=== PATIENT | female | born 1940 | race Caucasian/White ===

== ENCOUNTER 2019-12-05 12:00 | Outpatient (CLI) | payer OTHER, SELFPAY ==
[2019-12-05 12:38] LABS: Basophils Absolute Auto 0.1 K/mm3 (0.0-0.1); Basophils Percent Auto 1.1 % (0.2-1.2); Eosinophils Absolute Auto 0.2 K/mm3 (0-0.3); Eosinophils Percent Auto 3.1 % (0-4.4); Hematocrit 39.4 % (37.0-47.0); Immature Granulocyte Absolute 0.02 K/mm3 (0.00-0.031); Immature Granulocyte Percent A 0.3 % (0-0.5); Lymphocytes Absolute Auto 1.96 K/mm3 (0.9-3.2); Lymphocytes Percent Auto 30.4 % (18.3-44.2); Mean Corpuscular Volume 87.8 fl (80-100); Mean Platelet Volume 9.6 fl (7.4-10.4); Monocytes Absolute Auto 0.7 K/mm3 (0.1-0.6); Monocytes Percent Auto 11.2 % (2.6-8.5); Neutrophils Absolute Auto 3.5 K/mm3 (1.3-6.7); Neutrophils Percent Auto 53.9 % (45.5-73.1); Platelet Count Result 346 k/mm3 (150-375); Red Blood Count 4.49 M/mm3 (4.2-5.4); Red Cell Distribution Width 12.6 % (11.5-14.5); White Blood Count 6.5 K/mm3 (4.5-10.0)
[2019-12-05 12:48] LABS: Alanine Aminotransferase 18 U/L (4-35); Albumin Level 4.1 g/dL (3.5-5.1); Alkaline Phosphatase 129 U/L (38-126); Anion Gap 11.2 mmol/L (7-16); Aspartate Amino Transferase 25 U/L (14-36); Bilirubin,Total 0.4 mg/dL (0.2-1.3); Blood Urea Nitrogen 17 mg/dL (7-17); Calcium 8.6 mg/dL (8.4-10.2); Carbon Dioxide 28 mmol/L (22-30); Chloride 102 mmol/L (98-107); Estimated Glomerular Filt Rate > 60; Glucose 100 mg/dL (65-105); Potassium 4.2 mmol/L (3.4-5.0); Sodium 137 mmol/L (137-145)
[2019-12-05 13:19] LABS: Thyroid Stimulating Hormone 0.689 uIU/mL (0.465-4.680)
[2019-12-05 14:06] LABS: Vitamin D 25 Hydroxy 41.6 ng/mL
== END 2019-12-05 12:01 | disposition home or self-care (01) ==
PROVIDERS: PCP Internal Medicine; Visit Provider Internal Medicine
DX: I10 Essential (primary) hypertension (principal); Z79.899 Other long term (current) drug therapy
CPT/HCPCS: 36415; 80053; 82306; 84443; 85025

== ENCOUNTER 2020-01-12 15:34 | Outpatient (CLI) | payer OTHER, SELFPAY ==
--- NOTE | ~2020-01-12 | US_ITS ---
EXAMINATION: US venous doppler [facility] DATE: 01/12/2020 16:17 INDICATION: Lower limb edema TECHNIQUE: Reynaga scale images without and with compression and Doppler images of the bilateral lower e xtremity veins were obtained. COMPARISON: 05/28/2015 FINDINGS: The right common femoral vein, profunda femoral vein, femoral vein, popliteal vein, peroneal trunk, p osterior tibial veins, and greater saphenous vein are patent. The left common femoral vein, profunda femoral vein, femoral vein, popliteal vein, peroneal trunk, po sterior tibial veins, and greater saphenous vein are patent. IMPRESSION: 1. Patent bilateral lower extremity veins. No evidence of deep venous thrombosis. Reviewed, dictated and finalized at location B. IMPRESSION: 1. Patent bilateral lower extremity veins. No evidence of deep venous thrombosi s.
== END 2020-01-12 15:35 | disposition home or self-care (01) ==
PROVIDERS: PCP Internal Medicine; Visit Provider Internal Medicine Nephrology
DX: R60.1 Generalized edema (principal); I10 Essential (primary) hypertension
CPT/HCPCS: 93970

== ENCOUNTER 2020-01-26 13:28 | Outpatient (CLI) | payer OTHER, SELFPAY ==
[2020-01-26 15:20] LABS: Albumin Level 4.2 g/dL (3.5-5.1); Anion Gap 8 mmol/L (8-16); Blood Urea Nitrogen 14 mg/dL (7-17); Calcium 8.8 mg/dL (8.4-10.2); Carbon Dioxide 27 mmol/L (22-30); Chloride 103 mmol/L (98-107); Estimated Glomerular Filt Rate > 60; Glucose 102 mg/dL (65-105); Phosphorus 3.2 mg/dL (2.5-4.5); Potassium 3.8 mmol/L (3.4-5.0); Sodium 138 mmol/L (137-145)
[2020-02-01 13:40] LABS: Renin 1.06 ng/mL/h (0.25-5.82)
== END 2020-01-26 13:29 | disposition home or self-care (01) ==
LOC: ANHLAB 13:39
PROVIDERS: PCP Internal Medicine; Visit Provider Internal Medicine Nephrology
DX: I10 Essential (primary) hypertension (principal)
CPT/HCPCS: 36415; 80069; 82088; 83970; 84244

== ENCOUNTER 2020-01-29 14:47 | Outpatient (CLI) | payer OTHER, SELFPAY ==
[2020-01-29 20:37] LABS: Sodium Urine Random 88 meq/L
[2020-01-29 21:22] LABS: Sodium 24 Hour Urine 114 mmol/day (40-220); Total Volume 24 Hour Urine 1300 ml
[2020-02-03 11:29] LABS: Metanephrine, Free <25 pg/mL (<=57); Normetanephrine, Free 191 pg/mL (<=148); Total, Free (MN + NMN) 191 pg/mL (<=205)
[2020-02-04 12:50] LABS: Metanephrine, Total Urine 635 mcg/24 h (224-832); Metanephrine, Urine 51 mcg/24 h (90-315); Normetanephrine, Urine 584 mcg/24 h (122-676)
== END 2020-01-29 14:48 | disposition home or self-care (01) ==
LOC: ANHLAB 14:53
PROVIDERS: PCP Internal Medicine; Visit Provider Internal Medicine Nephrology
DX: I10 Essential (primary) hypertension (principal)
CPT/HCPCS: 36415; 81050; 82088; 82530; 82542; 83835; 84300

== ENCOUNTER 2020-03-13 12:15 | Outpatient (CLI) | payer OTHER, SELFPAY ==
[2020-03-13 13:01] LABS: Albumin Level 4.1 g/dL (3.5-5.1); Anion Gap 7 mmol/L (8-16); Blood Urea Nitrogen 23 mg/dL (7-17); Calcium 9.2 mg/dL (8.4-10.2); Carbon Dioxide 31 mmol/L (22-30); Chloride 100 mmol/L (98-107); Estimated Glomerular Filt Rate 60; Glucose 105 mg/dL (65-105); Phosphorus 4.3 mg/dL (2.5-4.5); Potassium 3.9 mmol/L (3.4-5.0); Sodium 138 mmol/L (137-145)
[2020-03-13 13:03] LABS: Creatinine Urine 158.9 mg/dL; Total Protein Urine Random 7 mg/dL
== END 2020-03-13 12:16 | disposition home or self-care (01) ==
PROVIDERS: PCP Internal Medicine; Visit Provider Internal Medicine Nephrology
DX: I10 Essential (primary) hypertension (principal)
CPT/HCPCS: 36415; 80069; 82570; 84156

== ENCOUNTER 2020-03-19 10:38 | Outpatient (CLI) | payer OTHER, SELFPAY ==
--- NOTE | ~2020-03-19 | US_ITS ---
EXAMINATION: US retroperitoneal duplex ltd DATE: 03/19/2020 11:26 INDICATION: Hypertension. TECHNIQUE: Multiple grayscale, color Doppler, and pulsed Doppler images of the kidneys and renal annamarie desean were obtained. COMPARISON: CT abdomen 09/17/2004, ultrasound 11/29/2018 FINDINGS: The kidneys are normal in size. The aorta peak systolic velocity is 120 cm/s. The right renal artery peak systolic velocity is 79 cm/s in the proximal segment, 77 cm/s in the mid segment, and 71 cm/s in the distal segment. The left renal artery peak systolic velocity is 61 cm/s in the proximal segment, 103 cm/s in the mid segment, and 43 cm/s in the distal segment. IMPRESSION: 1. No Doppler evidence of renal artery stenosis. The prior CT demonstrates normal renal arteries. Reviewed, dictated and finalized at location A. UE TESTER IMPRESSION: 1. No Doppler evidence of renal artery stenosis. The prior CT demonstrates nor mal renal arteries.
== END 2020-03-19 10:39 | disposition home or self-care (01) ==
PROVIDERS: PCP Internal Medicine; Visit Provider Internal Medicine Nephrology
DX: I10 Essential (primary) hypertension (principal)
CPT/HCPCS: 93976

== ENCOUNTER 2020-06-25 10:37 | Outpatient (CLI) | payer OTHER, SELFPAY ==
[2020-06-25 11:17] LABS: Albumin Level 3.9 g/dL (3.5-5.1); Anion Gap 8 mmol/L (8-16); Blood Urea Nitrogen 15 mg/dL (7-17); Calcium 8.7 mg/dL (8.4-10.2); Carbon Dioxide 28 mmol/L (22-30); Chloride 104 mmol/L (98-107); Estimated Glomerular Filt Rate > 60; Glucose 147 mg/dL (65-105); Phosphorus 3.7 mg/dL (2.5-4.5); Sodium 140 mmol/L (137-145)
[2020-06-25 11:47] LABS: Thyroid Stimulating Hormone 0.946 uIU/mL (0.465-4.680)
[2020-06-28 08:37] LABS: Metanephrine, Free <25 pg/mL (<=57); Normetanephrine, Free 136 pg/mL (<=148); Total, Free (MN + NMN) 136 pg/mL (<=205)
== END 2020-06-25 10:38 | disposition home or self-care (01) ==
LOC: ANHLAB 10:39
PROVIDERS: PCP Internal Medicine; Visit Provider Internal Medicine Nephrology
DX: E03.9 Hypothyroidism, unspecified (principal); I10 Essential (primary) hypertension
CPT/HCPCS: 36415; 80069; 83835; 84443

== ENCOUNTER 2020-11-13 11:38 | Outpatient (CLI) | payer OTHER, SELFPAY ==
[2020-11-13 12:41] LABS: Anion Gap 8 mmol/L (8-16); Blood Urea Nitrogen 11 mg/dL (7-17); Calcium 8.9 mg/dL (8.4-10.2); Carbon Dioxide 27 mmol/L (22-30); Chloride 104 mmol/L (98-107); Estimated Glomerular Filt Rate > 60; Glucose 93 mg/dL (65-105); Phosphorus 3.3 mg/dL (2.5-4.5); Potassium 4.1 mmol/L (3.4-5.0); Sodium 139 mmol/L (137-145)
[2020-11-13 12:56] LABS: Creatinine Urine 106.1 mg/dL; Total Protein Urine Random 7 mg/dL; Ur Ttl Prot Creatinine Ratio 0.07 mg/mg (0-0.20)
== END 2020-11-13 11:39 | disposition home or self-care (01) ==
LOC: ANHLAB 11:40
PROVIDERS: PCP Internal Medicine; Visit Provider Internal Medicine Nephrology
DX: I10 Essential (primary) hypertension (principal)
CPT/HCPCS: 36415; 80069; 82570; 84156

== ENCOUNTER 2020-12-17 15:44 | Emergency (ER) | payer OTHER, SELFPAY ==
--- NOTE | ~2020-12-17 | XR_ITS ---
XR shoulder RT min 2V DATE: 12/17/2020 16:38 INDICATION: Fall yesterday. Generalized pain. TECHNIQUE: 4 views COMPARISON: None FINDINGS: There is degenerative change at the acromioclavicular joint. There is degenerative cystic change at the humeral head subjacent to the rotator cuff tendon insertio n site. There is mild superior subluxation of the humeral head consistent with rotator cuff atrophy or tear. No fracture or dislocation, periosteal reaction or bone destruction or abnormal soft tissue calcifica tion. IMPRESSION: Degenerative changes Reviewed, dictated and finalized at location A. IMPRESSION: Degenerative changes
--- NOTE | ~2020-12-17 | CT_ITS ---
EXAMINATION: CT brain wo con DATE: 12/17/2020 16:16 INDICATION: Fall. Double vision. TECHNIQUE: Computed tomography (CT) of the head was performed without intravenous contrast. The mA wa s adjusted according to patient size. Iterative reconstruction technique was employed. Exam dose: 52 9.67 mGy-cm total exam DLP. COMPARISON: None FINDINGS: Prominent arterial calcifications of the vertebral and internal carotid arteries. There is nonspecific diminished attenuation of the cerebral white matter, likely due to chronic small vessel ischemic changes. No intracranial mass lesion or hemorrhage or recent cerebrovascular accident. No midline shift or ma ss effect. No subdural or epidural hematoma. No skull fracture or bone destruction. Included paranasal sinuses and mastoid air cells are normally developed and aerated. IMPRESSION: Cerebral atherosclerosis and chronic ischemic changes of the cerebral white matter No acute intracranial abnormality Reviewed, dictated and finalized at Location A. Reviewed, dictated and finalized at location A. IMPRESSION: Cerebral atherosclerosis and chronic ischemic changes of the cereb ral white matter No acute intracranial abnormality
--- NOTE | ~2020-12-17 | XR_ITS ---
XR elbow RT min 3V DATE: 12/17/2020 16:21 INDICATION: Fall. Right elbow injury, pain TECHNIQUE: 4 views COMPARISON: None FINDINGS: There is a mildly impacted nondisplaced radial neck fracture. There is mild elbow joint fl uid/hemarthrosis. No other fracture or dislocation. IMPRESSION: Radial neck fracture Reviewed, dictated and finalized at location A. IMPRESSION: Radial neck fracture
--- NOTE | ~2020-12-17 | XR_ITS ---
EXAMINATION: XR wrist RT min 3V DATE: 12/17/2020 16:39 INDICATION: Generalized right wrist pain post fall TECHNIQUE: Posteroanterior, ulnar deviation, oblique, and lateral views of the right wrist were obtai bc. COMPARISON: none FINDINGS: Bone alignment is normal. No fracture. Moderate osteoarthritis with mild subarticular cystic changes at the first carpometacarpal joint as well as at the third metacarpophalangeal joint. Mild osteoarthr itis at the distal radioulnar, radiocarpal and triscaphe and several of the remaining metacarpophalan geal and interphalangeal joints. Additional subarticular cystic changes are seen along the proximal a rticular surface of the lunate. Diffuse osteopenia. IMPRESSION: 1. Polyarticular osteoarthritis, moderate severity at the first carpometacarpal and third metacarpoph alangeal joints. No acute osseous abnormality. Reviewed, dictated and finalized at location A. IMPRESSION: 1. Polyarticular osteoarthritis, moderate severity at the first carpometacarpal and third metacarpophalangeal joints. No acute osseous abnormality.
--- NOTE | ~2020-12-17 | CT_ITS ---
EXAMINATION: CT facial & cervical spine wo DATE: 12/17/2020 16:16 INDICATION: Right facial pain. Diplopia. Head and neck injury. TECHNIQUE: Computed tomography (CT) of the maxillofacial region and cervical spine was performed with out intravenous contrast. Automated exposure control and iterative reconstruction technique were empl oyed. The dose-length product was 411.84 mGy-cm. COMPARISON: None FINDINGS: MAXILLOFACIAL CT: There is a blowout fracture of floor of right orbit. The inferior rectus muscle passes inferior to th e expected position of the floor of the right orbit. There are likely changes of ocular lens replacem ent surgeries. There is a small volume of hematoma in the right maxillary sinus. There is mild mucosa l thickening in some of the other paranasal sinuses. CERVICAL SPINE CT: C1 ring is ununited posteriorly, a normal variant. There is fusion of the C1 lateral masses with the skull base. There is 12 degrees dextroscoliosis of cervical spine. There is mild kyphosis of cervical spine. Vertebral body heights are normal. There is mildly decreased disc height at C3-C4 and moderat rachel decreased disc height at C5-C6 and C6-C7. The following disc levels are specifically discussed: C2-C3: There is no uncovertebral joint osteoarthritis. There is severe bilateral facet joint osteoart hritis. There is mild bilateral neural foraminal stenosis. There is no central canal stenosis. C3-C4: There is mild right uncovertebral joint osteoarthritis. There is no facet joint osteoarthritis . There is no neural foraminal stenosis. There is no central canal stenosis. C4-C5: There is no uncovertebral joint osteoarthritis. There is no facet joint osteoarthritis. There is no neural foraminal stenosis. There is no central canal stenosis. C5-C6: There is mild right and severe left uncovertebral joint osteoarthritis. There is severe right and mild left facet joint osteoarthritis. There is mild left neural foraminal stenosis. There is mild central canal stenosis. C6-C7: There is severe left uncovertebral joint osteoarthritis. There is mild right and moderate left facet joint osteoarthritis. There is mild left neural foraminal stenosis. There is mild central mike l stenosis. C7-T1: There is no uncovertebral joint osteoarthritis. There is severe bilateral facet joint osteoart hritis. There is mild bilateral neural foraminal stenosis. There is no central canal stenosis. IMPRESSION: 1. Blowout fracture of floor of right orbit. 2. Moderate cervical spondylosis. 3. Cervical dextroscoliosis. Reviewed, dictated and finalized at location B.
[2020-12-17 16:41] VITALS: BP 131/67; PULSE 72; RESP 14; TEMP 36.4; O2SAT 98
--- NOTE | 2020-12-17 17:43 | ED.GENADULT ---
HPI - General Adult General Chief complaint: Fall Stated complaint: Fall 12/16 double vision Time Seen by Provider: 12/17/20 17:01 Source: patient and family (daughter) Mode of arrival: ambulatory Limitations: no limitations History of Present Illness HPI narrative: Patient is here for evaluation after fall at home yesterday. She states that she just stumbled in her own home she fell forward and hit a cabinet. She was able to get herself off the floor. Her family became concerned today because she has a significant black eye on the right and numbness and tingling in her face on the right. She also has pain in her right arm that keeps her from being able to comb her hair or brush her teeth. She has no complaints in her legs or pelvis. And she has been ambulating freely at home. Onset (ago): day(s) Severity scale (1-10): 1 Exacerbating factors: movement (right arm) Associated symptoms: denies other symptoms Treatments prior to arrival: none Related Data Home Medications Medication Instructions Recorded Confirmed hydroxyzine HCl 12/17/20 12/17/20 Allergies Allergy/AdvReac Type Severity Reaction Status Date / Time chocolate flavor Allergy Unknown Itching Verified 12/17/20 16:57 morphine Allergy Unknown Itching Verified 12/17/20 16:57 tomato Allergy Unknown Itching Verified 12/17/20 16:57 Review of Systems Review of Systems: All systems reviewed & are unremarkable except as noted in HPI and below PMFSH Past Medical History Medical History (Updated 12/17/20 @ 20:23 by Mer Sommer PA-C) Dyslipidemia Hypertension Hypothyroid Surgical History Surgical History History of appendectomy History of section History of hysterectomy Family History Family History Mother Hypertension Heart disease Father Family history of heart disease in male family member before age 55 Social History Social History Smoking status: Never smoker Alcohol intake: never Gender identity (if verbalized by the patient): Female Exam Const: General: no acute distress and alert Orientation/consciousness: patient oriented x3 HENMT: Head: No palpable skull fracture present Face and sinus: ecchymosis on the right periorbital, edema on the right periorbital and other (numbness andtingling) Eyes: Alignment and Position: alignment normal Periorbital: periorbital findings abnormal right periorbital swelling, periorbital tenderness and periorbital ecchymosis Eyelids: other Conjunctivae: conjunctivae normal Sclera: sclerae normal Pupils: Equal, round and reactive pupils present and Pupils normal by confrontation EOM: EOMs intact bilaterally Other: IOP 14 OU Resp: Effort & Inspection: normal respiratory effort Auscultation: clear to auscultation bilaterally Cardio: Rate: regular rate Rhythm: regular rhythm Skin: General skin exam: normal color Other: with exception of right periorbital bruising Neuro: General: patient oriented x3, moves all extremities and no focal motor deficits Extrem: General: normal to inspection Right upper extremity: normal to inspection, normal capillary refill, elbow/forearm (pain with rotation in right elbow and forearm) and wrist (tender over right ulnar head) Left upper extremity: normal to inspection Right lower extremity: normal to inspection Left lower extremity: normal to inspection Psych: Mental Status: mental status grossly normal Affect: normal affect Attitude: cooperative Course Course Emergency Course: Spoke with Dr. MALDONADO at the [facility] [place], they will see the patient in clinic on . They would like 5 days of antibiotics and patient has been instructed regarding any concerning new onset of symptoms and when to call or return to the emergency room. Patient will also make an appointment
[2020-12-17 19:00] VITALS: BP 148/74; PULSE 88; RESP 20; O2SAT 96
--- NOTE | 2020-12-17 19:56 | PC.NURSE ---
Assumed care of pt. at this time. Report from NOHELIA Vela
[2020-12-17 20:30] VITALS: BP 146/89; PULSE 90; RESP 14; O2SAT 94
== END 2020-12-17 20:30 | disposition home or self-care (01) ==
PROVIDERS: Emergency Provider Emergency Medicine; PCP Internal Medicine
DX: S02.31XA Fracture of orbital floor, right side, initial encounter for closed fracture (principal); S52.111A Torus fracture of upper end of right radius, initial encounter for closed fracture; W18.30XA Fall on same level, unspecified, initial encounter; E78.5 Hyperlipidemia, unspecified; I10 Essential (primary) hypertension; E03.9 Hypothyroidism, unspecified
CPT/HCPCS: 70450; 70486; 72125; 73030; 73080; 73110; 99284; A4565

== ENCOUNTER 2021-01-14 09:34 | Outpatient (CLI) | payer OTHER, SELFPAY ==
[2021-01-14 10:55] LABS: Alanine Aminotransferase 17 U/L (4-35); Albumin Level 3.8 g/dL (3.5-5.1); Alkaline Phosphatase 146 U/L (38-126); Anion Gap 7 mmol/L (8-16); Aspartate Amino Transferase 19 U/L (14-36); Bilirubin,Total 0.5 mg/dL (0.2-1.3); Blood Urea Nitrogen 24 mg/dL (7-17); Calcium 9.1 mg/dL (8.4-10.2); Carbon Dioxide 25 mmol/L (22-30); Chloride 106 mmol/L (98-107); Cholesterol 174 mg/dL (0-200); Estimated Glomerular Filt Rate 60; Glucose 104 mg/dL (65-110); HDL Direct 71 mg/dL; Potassium 4.1 mmol/L (3.4-5.0); Sodium 138 mmol/L (137-145); Triglycerides 98 mg/dL (<150)
[2021-01-14 11:06] LABS: LDL Cholesterol Direct 73 mg/dL
[2021-01-14 11:10] LABS: Creatinine Urine 116.3 mg/dL
[2021-01-14 11:14] LABS: MALB Creatinine Ratio 11.8 mg/g (0-30); Microalbumin Urine Random 13.7 mg/L (0-16.7)
== END 2021-01-14 09:35 | disposition home or self-care (01) ==
PROVIDERS: PCP Internal Medicine; Visit Provider Internal Medicine
DX: E03.9 Hypothyroidism, unspecified (principal); E78.5 Hyperlipidemia, unspecified; E78.2 Mixed hyperlipidemia; I10 Essential (primary) hypertension
CPT/HCPCS: 36415; 80053; 80061; 82043

== ENCOUNTER 2021-02-07 15:00 | Outpatient (RCR) | payer OTHER, SELFPAY ==
--- NOTE | 2021-02-04 10:02 | OTOPEVAL ---
OCCUPATIONAL THERAPY INITIAL EVALUATION REPORT 02/04/21 Thank you for referring Jil Zimmerman to [facility].? The patient is scheduled to be seen for therapy? 2x/week for 4 weeks. Please review, sign, date and return this plan of care SUJATHA. I agree with and certify that the following plan of care is medically necessary. Referring Physician Date Referring Provider: Librado Liu MD *OT Outpatient Evaluation Start: 02/04/21 08:47 Evaluation Information Problem Diagnosis Radial head fx (R) elbow, DRUJ sprain Onset 12/16/20 Cause Fall Subjective Information Patient fell onto her right Query Text:As Reported By Patient/ arm where she sustained a Family radial head fracture and DRUJ sprain. She presents today with the right arm in a sling, which she wears at all time except when sleeping. She was treated conservatively. Orders today are for AAROM of elbow extension only and to continue no use of the right hand . Patient admits she has a hard time with not using the right hand. 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 He also currently helps her with bathing and dressing. Pain Assessment Timing of Pain Assessment Timing of Pain Assessment Assessment Pain Scale Pain Scale Used Numeric (1 - 10) Self Report Pain Assessment Right Arm(s) Reported Pain Level 0 Pain Frequency Intermittent Lowest Pain Intensity 0 Greatest Pain Intensity 8 Other Pain Aggravating Factors Trying to straighten the elbow causes sharp/shooting pain to the hand. Pain Score Pain Score 0: Self Report Upper Extremity Range of Motion Scapular/ Shoulder Range of Motion
--- NOTE | 2021-02-07 15:26 | PCOTNOTE ---
OCCUPATIONAL THERAPY DISCHARGE NOTIFICATION 02/07/21 Patient:Jil Zimmerman Date of :1940 Jil was initially evaluated at this clinic on 02/04/21 for instruction HEP for AAROM for elbow extension. She followed up with Dr. Contreras's staff physical therapy assistant today and is cleared to use her arm again. office states that she no longer needs therapy at this time, therefore she will be discharged with HEP at this time. Patient has been instructed in active ROM HEP for the elbow, forearm, and wrist. She has excellent return demonstration of the exercises. Thank you for referring this patient to [facility]. Please review, sign, date and return this discharge summary SUJATHA. I have been updated about the patient's current status and I agree with discharge from the above service at this time. Referring Physician Date Referring Provider: Librado Liu MD
== END 2021-02-10 10:31 | disposition home or self-care (01) ==
LOC: ANHOT 15:00
PROVIDERS: PCP Internal Medicine; Visit Provider Internal Medicine
DX: S53.10 Unspecified subluxation and dislocation of ulnohumeral joint (principal)
CPT/HCPCS: 97110; 97165

== ENCOUNTER 2021-03-25 09:47 | Outpatient (CLI) | payer OTHER, SELFPAY ==
--- NOTE | ~2021-03-25 | DEXA_ITS ---
Bone Density Report Name: Jil Zimmerman Age: 81 Sex: Female Ethnicity: White Date of : 1940 Indication: osteopenia; parental hip fracture; prior fracture; hysterectomy; postmenopausal Referring Provider: JOSSELINE DIAZ Study: Bone densitometry was performed. Exam Date: March 25, 2021 Accession number: [id number] Bone Density: Region BMD T-score Z-score Classification AP Spine (L3, L4) 0.750 -3.2 -0.4 Osteoporosis Femoral Neck (Left) 0.660 -1.7 0.6 Osteopenia Total Hip (Left) 0.872 -0.6 1.5 Normal Total Hip Bilateral Avg 0.850 -0.8 1.3 Normal Femoral Neck (Right) 0.736 -1.0 1.3 Normal Total Hip (Right) 0.827 -0.9 1.1 Normal World Health Organization criteria for BMD impression classify patients as: Normal (T-score at or above -1.0), Osteopenia (T-score between -1.0 and -2.5), or Osteoporosis (T-score at or below -2.5). 10-year Fracture Risk: FRAX not reported because: Some T-score for Spine Total or Hip Total or Femoral Neck at or below -2.5 Previous Exams: Region Exam Age BMD T-score BMD Change BMD Change Date g/cm2 vs Baseline vs Previous AP Spine(L3, L4) 03/25/2021 81 0.750 -3.2 -0.178(-19.1%) -0.178(-19.1%) 11/29/2018 78 0.927 -1.6 Total Hip(Left) 03/25/2021 81 0.872 -0.6 -0.029(-3.2%)* -0.029(-3.2%)* 11/29/2018 78 0.901 -0.3 Total Hip(Right) 03/25/2021 81 0.827 -0.9 -0.077(-8.5%)* -0.077(-8.5%)* 11/29/2018 78 0.904 -0.3 *Denotes significance at 95% confidence level, LSC for AP Spine = 0.022 g/cm2, LSC for Total Hip = 0.027 g/cm2 Clinical Information Provided by Patient: Has had a low trauma fracture Parent has had a hip fracture Has used the following medications: Vitamin D Has the following medical conditions: Hysterectomy Patient maximum height was 64 Menopause Age: 48 No regular weight bearing exercise Drinks caffeinated beverages Onset of menses at age 13 Number of children 3 Impression: The patient has established osteoporosis, based on the Total Spine T-score and the existence of a prior fracture. The patient has risk factors, including: parental hip fracture, previous fracture. The BMD for the Total Hip(Left) decreased, changing by -3.2% since the last DXA exam. The BMD for the Total Hip(Right) decreased, changing by -8.5% since the last DXA exam. Discussion: HIGH RISK OF FRACTURE. BONE DENSITY IS UNDESIRABLY LOW AT ONE OR MORE SKELETAL SITES, CONSISTENT WITH POSTMENOPAUSAL OSTEOPOROSIS. This patient's lo
== END 2021-03-25 09:48 | disposition home or self-care (01) ==
PROVIDERS: PCP Internal Medicine; Visit Provider Internal Medicine
DX: Z78.0 Asymptomatic menopausal state (principal); M81.0 Age-related osteoporosis without current pathological fracture; M85.852 Other specified disorders of bone density and structure, left thigh
CPT/HCPCS: 77080

== ENCOUNTER 2021-06-10 10:12 | Outpatient (CLI) | payer OTHER, SELFPAY ==
[2021-06-10 11:19] LABS: Albumin Level 4.2 g/dL (3.5-5.1); Anion Gap 7 mmol/L (8-16); Blood Urea Nitrogen 17 mg/dL (7-17); Calcium 8.6 mg/dL (8.4-10.2); Carbon Dioxide 24 mmol/L (22-30); Chloride 107 mmol/L (98-107); Estimated Glomerular Filt Rate > 60; Glucose 108 mg/dL (65-110); Phosphorus 3.1 mg/dL (2.5-4.5); Potassium 4.6 mmol/L (3.4-5.0); Sodium 138 mmol/L (137-145)
[2021-06-10 11:38] LABS: Creatinine Urine 100.8 mg/dL
[2021-06-10 12:17] LABS: Total Protein Urine Random < 5 mg/dL; Ur Ttl Prot Creatinine Ratio < 0.05 mg/mg (0-0.20)
== END 2021-06-10 10:13 | disposition home or self-care (01) ==
PROVIDERS: PCP Internal Medicine; Visit Provider Internal Medicine Nephrology
DX: I10 Essential (primary) hypertension (principal)
CPT/HCPCS: 36415; 80069; 82570; 84156

== ENCOUNTER 2021-09-09 09:55 | Outpatient (CLI) | payer OTHER, SELFPAY ==
--- NOTE | ~2021-09-09 | XR_ITS ---
XR knee RT 3V DATE: 09/09/2021 10:38 INDICATION: Right knee pain, osteoarthritis TECHNIQUE: 3 views COMPARISON: None FINDINGS: There is severe joint space narrowing and prominent particular spurring of the patellofemor al joint consistent with severe osteoarthritis. There is particular spurring at medial and lateral compartments, moderate loss of height of lateral c ompartment joint space. No fracture or dislocation or joint effusion. No periosteal reaction or bone destruction. IMPRESSION: Tricompartment osteoarthritis, severe at the patellofemoral joint Reviewed, dictated and finalized at location B.
--- NOTE | ~2021-09-09 | XR_ITS ---
XR knee LT 3V DATE: 09/09/2021 10:39 INDICATION: Left knee pain TECHNIQUE: Klahr view. Standing AP and lateral views. 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 No fracture or dislocation or joint effusion. No periosteal reaction or bone destruction. Osteopenia. IMPRESSION: Status post total knee arthroplasty with patellar resurfacing Reviewed, dictated and finalized at location B.
[2021-09-09 10:26] LABS: Basophils Absolute Auto 0.1 K/mm3 (0.0-0.1); Basophils Percent Auto 0.8 % (0.2-1.2); Eosinophils Absolute Auto 0.1 K/mm3 (0-0.3); Eosinophils Percent Auto 1.9 % (0-4.4); Hematocrit 40.3 % (37.0-47.0); Hemoglobin 12.9 g/dL (12.0-15.0); Immature Granulocyte Absolute 0.02 K/mm3 (0.00-0.031); Immature Granulocyte Percent A 0.3 % (0-0.5); Lymphocytes Percent Auto 22.9 % (18.3-44.2); Mean Corpuscular Hemoglobin 27.4 pg (26-34); Mean Corpuscular Volume 85.7 fl (80-100); Mean Platelet Volume 9.9 fl (7.4-10.4); Monocytes Absolute Auto 0.7 K/mm3 (0.1-0.6); Neutrophils Absolute Auto 4.8 K/mm3 (1.3-6.7); Neutrophils Percent Auto 64.1 % (45.5-73.1); Platelet Count Result 356 k/mm3 (150-375); Red Cell Distribution Width 13.6 % (11.5-14.5); White Blood Count 7.4 K/mm3 (4.5-10.0)
[2021-09-09 10:43] LABS: Alanine Aminotransferase 14 U/L (6-35); Albumin Level 3.7 g/dL (3.5-5.1); Alkaline Phosphatase 104 U/L (38-126); Anion Gap 7 mmol/L (8-16); Aspartate Amino Transferase 23 U/L (14-36); Bilirubin,Total 0.5 mg/dL (0.2-1.3); Blood Urea Nitrogen 13 mg/dL (7-17); Calcium 7.6 mg/dL (8.4-10.2); Carbon Dioxide 23 mmol/L (22-30); Chloride 107 mmol/L (98-107); Estimated Glomerular Filt Rate > 60; Glucose 108 mg/dL (65-110); Potassium 4.1 mmol/L (3.4-5.0); Sodium 137 mmol/L (137-145)
[2021-09-09 11:37] LABS: Vitamin D 25 Hydroxy 31.4 ng/mL
== END 2021-09-09 09:56 | disposition home or self-care (01) ==
LOC: ANHLAB 09:57
PROVIDERS: PCP Internal Medicine; Visit Provider Internal Medicine
DX: E03.9 Hypothyroidism, unspecified (principal); E78.5 Hyperlipidemia, unspecified; I10 Essential (primary) hypertension; E55.9 Vitamin D deficiency, unspecified; M19.90 Unspecified osteoarthritis, unspecified site
CPT/HCPCS: 36415; 73562; 80053; 82306; 84443; 85025

== ENCOUNTER 2021-11-05 11:38 | Outpatient (CLI) | payer OTHER, SELFPAY ==
[2021-11-05 12:09] LABS: Calcium 8.3 mg/dL (8.4-10.2)
[2021-11-05 13:09] LABS: Vitamin D 25 Hydroxy 35.3 ng/mL
== END 2021-11-05 11:39 | disposition home or self-care (01) ==
LOC: ANHLAB 11:40
PROVIDERS: PCP Internal Medicine; Visit Provider Internal Medicine
DX: E55.9 Vitamin D deficiency, unspecified (principal)
CPT/HCPCS: 36415; 82306; 82310

== ENCOUNTER 2021-12-09 11:02 | Outpatient (CLI) | payer OTHER, SELFPAY ==
[2021-12-09 11:41] LABS: Albumin Level 3.8 g/dL (3.5-5.1); Anion Gap 10 mmol/L (8-16); Blood Urea Nitrogen 17 mg/dL (7-17); Calcium 8.5 mg/dL (8.4-10.2); Carbon Dioxide 23 mmol/L (22-30); Chloride 105 mmol/L (98-107); Estimated Glomerular Filt Rate 53; Glucose 146 mg/dL (65-110); Phosphorus 3.3 mg/dL (2.5-4.5); Potassium 3.8 mmol/L (3.4-5.0); Sodium 138 mmol/L (137-145)
[2021-12-09 14:43] LABS: Creatinine Urine 168.9 mg/dL
[2021-12-09 15:20] LABS: Total Protein Urine Random < 5 mg/dL
[2021-12-09 15:21] LABS: Ur Ttl Prot Creatinine Ratio < 0.03 mg/mg (0-0.20)
== END 2021-12-09 11:03 | disposition home or self-care (01) ==
LOC: ANHLAB 11:04
PROVIDERS: PCP Internal Medicine; Visit Provider Internal Medicine Nephrology
DX: I10 Essential (primary) hypertension (principal)
CPT/HCPCS: 36415; 80069; 82570; 84156

== ENCOUNTER 2021-12-17 09:21 | Outpatient (CLI) | payer OTHER, SELFPAY ==
[2021-12-17 10:01] LABS: Appearance Urine Cloudy (Clear); Bilirubin Urine 1+ (Negative); Color Urine Yellow (Yellow); Glucose Urine UA Negative (Negative); Ketones Urine 1+ mg/dL (Negative); Leukocyte Esterase Ur 3+ LEU/UL (NEGATIVE); Nitrate Urine Positive (Negative); Protein Urine 1+ mg/dL (Negative); Specific Grav Ur >= 1.030 (1.001-1.035); pH Urine 5.5 (5.0-9.0)
[2021-12-17 10:04] LABS: Add Urine Microscopic? YES; Blood Urine Trace-Intact (Negative)
[2021-12-17 10:21] LABS: Bacteria Urine Trace /hpf; Hyaline Casts Urine 15-19 /lpf; Mucus Urine Moderate /lpf; Squamous Epithelial Cell Urine Many /hpf (Few); WBC Clumps Urine Present /HPF; WBC Urine >75 /hpf (0-3)
== END 2021-12-17 09:22 | disposition home or self-care (01) ==
PROVIDERS: PCP Internal Medicine; Visit Provider Internal Medicine Nephrology
DX: N39.0 Urinary tract infection, site not specified (principal)
CPT/HCPCS: 81001; 87077; 87086; 87186

== ENCOUNTER 2022-06-18 10:54 | Outpatient (CLI) | payer OTHER, SELFPAY ==
[2022-06-18 11:37] LABS: Strep Group A RT-PCR NOT DETECTED (Negative)
[2022-06-18 11:51] LABS: Influenza A QL RT-PCR Negative (Negative); Influenza B QL RT-PCR Negative (Negative); SARS-CoV-2 RNA PCR Positive
== END 2022-06-18 10:55 | disposition home or self-care (01) ==
LOC: ANHLAB 10:55
PROVIDERS: PCP Internal Medicine; Visit Provider Internal Medicine
DX: U07.1 COVID-19 (principal); R68.89 Other general symptoms and signs
CPT/HCPCS: 87636; 87651

== ENCOUNTER 2022-07-01 14:20 | Outpatient (CLI) | payer OTHER, SELFPAY ==
[2022-07-01 15:49] LABS: Anion Gap 7 mmol/L (8-16); Blood Urea Nitrogen 19 mg/dL (7-17); Calcium 8.9 mg/dL (8.4-10.2); Carbon Dioxide 28 mmol/L (22-30); Chloride 103 mmol/L (98-107); Estimated Glomerular Filt Rate > 60; Glucose 102 mg/dL (65-110); Phosphorus 3.6 mg/dL (2.5-4.5); Potassium 4.8 mmol/L (3.4-5.0); Sodium 138 mmol/L (137-145)
== END 2022-07-01 14:21 | disposition home or self-care (01) ==
PROVIDERS: PCP Internal Medicine; Visit Provider Internal Medicine Nephrology
DX: I10 Essential (primary) hypertension (principal)
CPT/HCPCS: 36415; 80069

== ENCOUNTER 2022-07-04 10:31 | Outpatient (CLI) | payer OTHER, SELFPAY ==
[2022-07-04 11:07] LABS: Creatinine Urine 46.1 mg/dL; Total Protein Urine Random 7 mg/dL; Ur Ttl Prot Creatinine Ratio 0.15 mg/mg (0-0.20)
== END 2022-07-04 10:32 | disposition home or self-care (01) ==
LOC: ANHLAB 10:33
PROVIDERS: PCP Internal Medicine; Visit Provider Internal Medicine Nephrology
DX: I10 Essential (primary) hypertension (principal)
CPT/HCPCS: 82570; 84156

== ENCOUNTER 2022-08-14 13:22 | Outpatient (CLI) | payer OTHER, SELFPAY ==
--- NOTE | ~2022-08-14 | CT_ITS ---
EXAMINATION: CTA abdomen pelvis DATE: 08/14/2022 14:15 INDICATION: Hypertension TECHNIQUE: Computed tomographic angiography (CTA) of the abdomen and pelvis was performed with 100 mL Omnipaque-350 intravenous contrast. Maximum intensity projection 3D-reconstructions of the aorta and other arteries were constructed by the technologist on a separate workstation. The dose-length produ ct (DLP) was 1218.60 mGy-cm. Automated exposure control and iterative reconstruction technique were e mployed. COMPARISON: None. FINDINGS: There is mild bronchial wall thickening of the lower lobes, left greater than right. There are a few associated nodules the left lower lobe. There is a moderate-sized sliding hiatal hernia. Th e heart size is normal. Calcified coronary artery atherosclerosis is noted. The liver, spleen, pancre as, gallbladder, and adrenal glands are normal. The kidneys are unremarkable. No pathologically enlar ged abdominal or pelvic lymph nodes are identified. No free intraperitoneal gas or evidence of bowel obstruction. Colonic diverticulosis is present without evidence of diverticulitis. There is severe celso mbar spondylosis at L5-S1. There is no aneurysm or dissection of the aorta. There is calcified atherosclerosis at the origin of the celiac axis without hemodynamically significant stenosis. The superior mesenteric artery and infe rior mesenteric artery are normal at their origins. There are single renal arteries bilaterally. Ther e is calcified atherosclerosis without hemodynamically significant stenosis at the origin of the righ t renal artery. IMPRESSION: 1. Areas of calcified atherosclerosis without hemodynamically significant stenosis. No aneurysm or di ssection of the abdominal aorta. 2. Bronchial wall thickening in the lower lobes with a few associated nodules of the left lower lobe, consistent with bronchopneumonia. Reviewed, dictated and finalized at location F. IMPRESSION: 1. Areas of calcified atherosclerosis without hemodynamically significant steno sis. No aneurysm or dissection of the abdominal aorta. 2. Bronchial wall thickening in the lower lobes with a few associated nodules o f the left lower lobe, consistent with bronchopneumonia.
--- NOTE | ~2022-08-14 | XR_ITS ---
EXAMINATION: XR chest 2V 08/14/2022 14:00 INDICATION: Cough PROCEDURE: 2 view chest COMPARISON: Comparison to multiple prior studies sequentially, with oldest reviewed study dated 09/10. FINDINGS: The lungs are clear. The cardiomediastinal silhouette is within normal limits. There are no pleural effusions. There is no pneumothorax suspected. IMPRESSION: 1: NO ACUTE CARDIOPULMONARY DISEASE. Reviewed, dictated and finalized at location B.
[2022-08-14 14:08] LABS: Estimated Glomerular Filt Rate 53
== END 2022-08-14 13:23 | disposition home or self-care (01) ==
PROVIDERS: PCP Internal Medicine; Referring Provider Nurse Practitioner Family; Visit Provider Internal Medicine Nephrology
DX: I70.1 Atherosclerosis of renal artery (principal); I10 Essential (primary) hypertension; R05.9 Cough, unspecified; R91.8 Other nonspecific abnormal finding of lung field
CPT/HCPCS: 71046; 74174; Q9967

== ENCOUNTER 2022-12-15 09:50 | Outpatient (CLI) | payer OTHER, SELFPAY ==
[2022-12-15 10:30] LABS: Albumin Level 3.8 g/dL (3.5-5.1); Anion Gap 6 mmol/L (8-16); Blood Urea Nitrogen 13 mg/dL (7-17); Calcium 8.2 mg/dL (8.4-10.2); Carbon Dioxide 25 mmol/L (22-30); Chloride 105 mmol/L (98-107); Estimated Glomerular Filt Rate > 60; Glucose 97 mg/dL (65-110); Phosphorus 3.4 mg/dL (2.5-4.5); Potassium 4.2 mmol/L (3.4-5.0); Sodium 136 mmol/L (137-145)
[2022-12-15 13:04] LABS: Creatinine Urine 181.6 mg/dL
[2022-12-15 13:26] LABS: Total Protein Urine Random < 5 mg/dL; Ur Ttl Prot Creatinine Ratio < 0.03 mg/mg (0-0.20)
== END 2022-12-15 09:51 | disposition home or self-care (01) ==
LOC: ANHLAB 09:52
PROVIDERS: PCP Family Medicine; Visit Provider Internal Medicine Nephrology
DX: I10 Essential (primary) hypertension (principal)
CPT/HCPCS: 36415; 80069; 82570; 84156

== ENCOUNTER 2023-02-11 13:56 | Outpatient (CLI) | payer OTHER, SELFPAY ==
--- NOTE | ~2023-02-11 | XR_ITS ---
EXAMINATION: XR abdomen obstructive series DATE: 02/11/2023 14:55 INDICATION: Irritable bowel syndrome TECHNIQUE: Supine and upright views of the abdomen. FINDINGS: No prior studies for comparison. The visualized lung parenchyma is normal.. There is a obstructive bowel gas pattern. Gas and stool ar e seen throughout the colon to the level of the rectum. There is no free air. IMPRESSION: 1. No acute abdominal abnormality. Reviewed, dictated and finalized at location A.
[2023-02-11 14:33] LABS: Hematocrit 38.3 % (37.0-47.0); Hemoglobin 12.3 g/dL (12.0-15.0); Mean Corpuscular HGB Conc 32.1 g/dl (32-36); Mean Corpuscular Hemoglobin 27.6 pg (26-34); Mean Corpuscular Volume 86.1 fl (80-100); Mean Platelet Volume 9.8 fl (7.4-10.4); Platelet Count Result 377 k/mm3 (150-375); Red Blood Count 4.45 M/mm3 (4.2-5.4); Red Cell Distribution Width 13.7 % (11.5-14.5); White Blood Count 7.9 K/mm3 (4.5-10.0)
[2023-02-11 14:58] LABS: Alanine Aminotransferase 16 U/L (6-35); Albumin Level 3.9 g/dL (3.5-5.1); Alkaline Phosphatase 107 U/L (38-126); Anion Gap 7 mmol/L (8-16); Aspartate Amino Transferase 23 U/L (14-36); Bilirubin,Total 0.5 mg/dL (0.2-1.3); Blood Urea Nitrogen 20 mg/dL (7-17); Carbon Dioxide 25 mmol/L (22-30); Chloride 105 mmol/L (98-107); Estimated Glomerular Filt Rate 53; Glucose 103 mg/dL (65-110); Potassium 3.6 mmol/L (3.4-5.0); Sodium 137 mmol/L (137-145)
== END 2023-02-11 13:57 | disposition home or self-care (01) ==
LOC: ANHLAB 13:58
PROVIDERS: PCP Family Medicine; Visit Provider Family Medicine
DX: K58.0 Irritable bowel syndrome with diarrhea (principal); I10 Essential (primary) hypertension; E03.9 Hypothyroidism, unspecified; E78.5 Hyperlipidemia, unspecified; E66.01 Morbid (severe) obesity due to excess calories; G47.33 Obstructive sleep apnea (adult) (pediatric); K21.9 Gastro-esophageal reflux disease without esophagitis; F32.9 Major depressive disorder, single episode, unspecified; E66.9 Obesity, unspecified; R29.6 Repeated falls; E55.9 Vitamin D deficiency, unspecified
CPT/HCPCS: 36415; 74019; 80053; 84443; 85027

== ENCOUNTER 2023-04-02 10:29 | Emergency (ER) | payer OTHER, SELFPAY ==
[2023-04-02] VITALS (18 sets, daily range): BP systolic 75–192; BP diastolic 38–131; PULSE 63–68; RESP 10–21; TEMP 36.8; O2SAT 95–99
--- NOTE | ~2023-04-02 | XR_ITS ---
EXAMINATION: XR chest 1V portable DATE: 04/02/2023 11:14 INDICATION: Cerebrovascular accident. TECHNIQUE: A single frontal view of the chest was obtained. COMPARISON: Chest 2 views 08/14/2022, CT abdomen and pelvis 08/14/2022 FINDINGS: There is no pneumonia, pleural effusion, or pneumothorax. Cardiomegaly is noted. IMPRESSION: 1. Cardiomegaly. Reviewed, dictated and finalized at location A. SOMNOGRAPHY TECH IMPRESSION: 1. Cardiomegaly.
--- NOTE | ~2023-04-02 | CT_ITS ---
EXAMINATION: CT brain wo con DATE: 04/02/2023 11:28 INDICATION: CVA. TECHNIQUE: Computed tomography (CT) of the head was performed without intravenous contrast. The dose- length product was 605.33 mGy-cm. Automated exposure control and iterative reconstruction technique w ere employed. COMPARISON: CT dated 12/17/2020 FINDINGS: Generalized atrophy. There are scattered moderate periventricular and subcortical white mat ter changes, most likely related to small vessel ischemic disease (microangiopathy). No ventriculomeg minerva or midline shift. Basilar cisterns are patent. There is intracranial atherosclerosis. No acute in farction, hemorrhage, mass or mass effect. There are surgical changes of the right orbit. IMPRESSION: 1. No acute intracranial abnormality. No significant change. Reviewed, dictated and finalized at location B. [employer]IDED DESIGN DESIGNER
--- NOTE | 2023-04-02 10:34 | ECG_ITS ---
Measurements Intervals [place] Rate: 64 P: 48 IN: 164 QRS: 61 QRSD: 90 T: 69 QT: 440 QTc: 455 Interpretive Statements SINUS RHYTHM NONSPECIFIC T-WAVE ABNORMALITY BORDERLINE ECG COMPARED TO ECG 10/29/2018 15:26:07 NO SIGNIFICANT CHANGES Electronically Signed On 04-02-2023 13:34:19 WINDING LATHE OPERATOR by Niraj Shukla M.D.
--- NOTE | 2023-04-02 10:40 | ED.NEUROSD ---
HPI - Neuro Symptoms/Deficit General Chief Complaint: Suspected CVA Stated Complaint: Rapid Response, Confusion History of Present Illness HPI Narrative: 83F was with in pre-op when she passed out; denies any complaints, per pre-op nurse her BP was 70s/30s when they checked it and brought her to ER. She reports only PMH is HTN and she did take her meds this morning. Related Data Home Medications Medication Instructions Recorded Confirmed calcium carbonate 500 mg calcium 500 mg PO DAILY 02/16/22 12/16/22 (1,250 mg) tablet cholecalciferol (vitamin D3) 50 50 mcg PO DAILY 02/16/22 12/16/22 mcg (2,000 unit) capsule Allergies Allergy/AdvReac Type Severity Reaction Status Date / Time chocolate flavor Allergy Unknown Itching Verified 12/16/22 14:44 morphine Allergy Unknown Itching Verified 12/16/22 14:44 tomato Allergy Unknown Itching Verified 12/16/22 14:44 Review of Systems Review of Systems: CONST: No fever. HEENT: No sore throat C/V: No chest pain RESP: No cough GI: No nausea/vomiting : No dysuria. M/S: No joint pain. SKIN: No rash. NEURO: [+LOC; No focal numbness or weakness] PSYCH: [No depression] [facility] Past Medical History Medical History (Updated 04/02/23 @ 11:46 by Makenna Coppola MD) Dyslipidemia Hypertension Hypothyroid Surgical History Surgical History History of appendectomy History of section History of hysterectomy Family History Family History (Reviewed 08/17/22 @ 11:42 by Mirella Li [facility]) Mother Hypertension Heart disease Father Family history of heart disease in male family member before age 55 Social History Social History Smoking status: Never smoker Second hand tobacco smoke exposure: No Alcohol intake: never Substance use: never Substance use type: does not use Lack of Transportation: No Lack of Food: Never True Current Housing: I Have Housing Concerned About Future Housing: No Difficulty Paying Gas/Electric Bills: No Difficulty Paying for Meds: No Currently Unemployed: No Education: Associate Degree Difficulty w/ Childcare or Family Care: No Living arrangements: with family Gender identity (if verbalized by the patient): Female Exam Narrative: EXAMINATION OF ORGAN SYSTEMS/BODY AREAS: Constitutional: Vital signs per nursing GENERAL: Initially unresponsive; then woke up and did not appear to be in distress HEAD: Normal with no signs of head trauma. EYES: EOMI, conjunctiva normal, PERRL ENT: Hearing grossly intact; no facial droop LUNGS: Nonlabored breathing. HEART: [Regular rate and rhythm]; diminished pulses bilateral radial ABD: [Soft], [nontender to palpation] EXT: Normal range of motion SKIN: [No rashes or lesions.] NEURO: [Alert and oriented x 3 after awaking. Moves upper and lower extremities to command without drift; no diminished sensation to either side or face.] PSYCH: Normal affect Course Vital Signs Vital signs: Vital Signs Pulse Rate 63 04/02/23 10:42 Respiratory Rate 12 04/02/23 10:42 Pulse Oximetry 95 04/02/23 10:42 Temperature 98.2 F 04/02/23 10:45 Pulse Rate 63 04/02/23 12:20 Respiratory Rate 15 04/02/23 11:16 Blood Pressure 75/38 L 04/02/23 12:20 Pulse Oximetry 99 04/02/23 12:30 Oxygen Delivery Room Air 04/02/23 10:45 MDM - Neuro Symptoms/Deficit MDM Narrative Medical decision making narrative: 83-year-old female presents to the ER after having syncopal episode in pre-op; she had low BPs measured there and here in ER where I went to see her in triage; immediately placed in room, placed on monitors, CBG obtained (normal), IVF started. On my initial exam she was first unresponsive then woke up appeared sleepy but NIHSS 0; no focal symptoms. I doubt CVA and suspect most likely vasovagal syncope. Also considered BP med OD but
[2023-04-02 10:58] LABS: Basophils Absolute Auto 0.1 K/mm3 (0.0-0.1); Basophils Percent Auto 1.3 % (0.2-1.2); Eosinophils Absolute Auto 0.2 K/mm3 (0-0.3); Eosinophils Percent Auto 2.7 % (0-4.4); Hematocrit 38.3 % (37.0-47.0); Immature Granulocyte Absolute 0.02 K/mm3 (0.00-0.031); Immature Granulocyte Percent A 0.3 % (0-0.5); Lymphocytes Absolute Auto 1.65 K/mm3 (0.9-3.2); Lymphocytes Percent Auto 24.5 % (18.3-44.2); Mean Corpuscular HGB Conc 31.3 g/dl (32-36); Mean Corpuscular Hemoglobin 26.2 pg (26-34); Mean Corpuscular Volume 83.6 fl (80-100); Mean Platelet Volume 9.5 fl (7.4-10.4); Monocytes Absolute Auto 0.5 K/mm3 (0.1-0.6); Monocytes Percent Auto 7.9 % (2.6-8.5); Neutrophils Absolute Auto 4.3 K/mm3 (1.3-6.7); Neutrophils Percent Auto 63.3 % (45.5-73.1); Platelet Count Result 400 k/mm3 (150-375); Red Blood Count 4.58 M/mm3 (4.2-5.4); Red Cell Distribution Width 13.5 % (11.5-14.5); White Blood Count 6.7 K/mm3 (4.5-10.0)
[2023-04-02 11:05] LABS: Glucose Point of Care 114 mg/dl (65-105)
[2023-04-02 11:11] LABS: INR 1.1; Prothrombin Time 14.2 Seconds (11.1-14.7)
[2023-04-02 11:14] LABS: Alanine Aminotransferase 16 U/L (6-35); Albumin Level 3.9 g/dL (3.5-5.1); Alkaline Phosphatase 110 U/L (38-126); Anion Gap 9 mmol/L (8-16); Aspartate Amino Transferase 22 U/L (14-36); Bilirubin,Total 0.7 mg/dL (0.2-1.3); Blood Urea Nitrogen 18 mg/dL (7-17); Calcium 8.3 mg/dL (8.4-10.2); Carbon Dioxide 23 mmol/L (22-30); Chloride 105 mmol/L (98-107); Estimated Glomerular Filt Rate 60; Glucose 112 mg/dL (65-110); Potassium 4.4 mmol/L (3.4-5.0); Sodium 137 mmol/L (137-145)
[2023-04-02 11:25] LABS: Troponin I < 0.012 ng/mL (0.000-0.034)
[2023-04-02] MEDS: SODIUM CHLORIDE 0.9% IV 1,000 ML 999 ML IV CONT (12:54)
--- NOTE | 2023-04-09 13:47 | PC.NURSE ---
LATE ENTRY This note is being entered to document information to the patient's record. The following information was omitted on [04/02/2023], by [Angela Hernandez RN]. NS stop time at 13:55.
== END 2023-04-02 12:55 | disposition home or self-care (01) ==
PROVIDERS: Emergency Provider Emergency Medicine; PCP Family Medicine
DX: R55 Syncope and collapse (principal); I10 Essential (primary) hypertension; E03.9 Hypothyroidism, unspecified; E78.5 Hyperlipidemia, unspecified; Z90.710 Acquired absence of both cervix and uterus; R94.31 Abnormal electrocardiogram [ECG] [EKG]
CPT/HCPCS: 36415; 70450; 71045; 80053; 82948; 84484; 85025; 85610; 85730; 93005; 96360; 99284; J7030

== ENCOUNTER 2023-05-04 00:15 | Day surgery (SDC) | payer OTHER, SELFPAY ==
[2023-04-13 09:16] VITALS: BMI 37.8
--- NOTE | 2023-04-30 12:03 | SUR.PREOP ---
Patient called regarding upcoming procedure. Reviewed preop instructions, appointment times, and procedure prep.
--- NOTE | 2023-04-30 15:41 | PM.HPGS ---
History of Present Illness History of Present Illness Consent: Risks, benefits, and alternatives have been discussed and questions answered. Patient agrees to proceed with procedure. Chief complaint: Noninfective gastroenteritis and colitis Narrative: Jil Zimmerman is a 83 year old female who was referred for investigation of chronic diarrhea. Review of Systems Review of Systems: All systems reviewed & are unremarkable except as noted in HPI and below PMFSH Past Medical History Medical History Dyslipidemia Hypertension Hypothyroid Surgical History Surgical History History of appendectomy History of section History of hysterectomy Family History Family History Mother Hypertension Heart disease Father Family history of heart disease in male family member before age 55 Social History Social History Smoking status: Never smoker Second hand tobacco smoke exposure: No Alcohol intake: never Substance use: never Substance use type: does not use Lack of Transportation: No Lack of Food: Never True Current Housing: I Have Housing Concerned About Future Housing: No Difficulty Paying Gas/Electric Bills: No Difficulty Paying for Meds: No Currently Unemployed: No Education: Associate Degree Difficulty w/ Childcare or Family Care: No Living arrangements: with family Gender identity (if verbalized by the patient): Female Spiritual care concerns: No Meds Home Medications and Allergies Home Medications Medication Instructions Recorded Confirmed Type calcium carbonate 500 mg calcium 500 mg PO DAILY 02/16/22 05/04/23 History (1,250 mg) tablet cholecalciferol (vitamin D3) 50 50 mcg PO DAILY 02/16/22 05/04/23 History mcg (2,000 unit) capsule denosumab 60 mg/mL subcutaneous 60 mg subcut [id number] #1 mL 06/01/22 05/04/23 Rx syringe (Prolia) spironolactone 25 mg tablet See Rx Instructions .Route 07/14/22 05/04/23 Rx .COMPLEX #30 tabs amlodipine 10 mg tablet See Rx Instructions .Route 12/21/22 05/04/23 Rx .COMPLEX #90 tabs levothyroxine 75 mcg tablet 75 mcg PO DAILY #90 tabs 12/21/22 05/04/23 Rx pantoprazole 40 mg tablet,delayed 40 mg PO QAM #90 tabs 12/21/22 05/04/23 Rx release hydralazine 100 mg tablet See Rx Instructions .Route 12/23/22 05/04/23 Rx .COMPLEX #270 tabs duloxetine 60 mg capsule,delayed See Rx Instructions .Route 03/18/23 05/04/23 Rx release .COMPLEX #90 caps carvedilol 25 mg tablet See Rx Instructions .Route 03/22/23 05/04/23 Rx .COMPLEX #180 tabs losartan 100 mg tablet See Rx Instructions .Route 03/22/23 05/04/23 Rx .COMPLEX #90 tabs hydroxyzine HCl 10 mg tablet 10 mg PO TID PRN itching #120 tabs 04/06/23 05/04/23 Rx Allergies Allergy/AdvReac Type Severity Reaction Status Date / Time chocolate flavor Allergy Unknown Itching Verified 05/04/23 09:53 morphine Allergy Unknown Itching Verified 05/04/23 09:53 tomato Allergy Unknown Itching Verified 05/04/23 09:53 Exam Resp: Auscultation: clear to auscultation bilaterally Cardio: Rate: regular rate Rhythm: regular rhythm GI: GI Palp: Yes Soft to palpation and No Tenderness to palpation present (GI) Assessment and Plan Assessment and plan (1) Chronic diarrhea: Code(s): K52.9 - Noninfective gastroenteritis and colitis, unspecified Status: Acute Assessment and Plan: Colonoscopy with possible biopsy or polypectomy or cautery or injection of substances.
[2023-05-04 09:54] VITALS: BP 172/76; PULSE 61; RESP 17; TEMP 36.1; O2SAT 97; BMI 37.1
--- NOTE | 2023-05-04 10:13 | WPDANESEPPF ---
Anes - Initial Pre Proc Eval Procedure: Operation Date: 05/04/23 11:00 Proposed Procedures p Esophagogastroduodenoscopy - Vinayak Castillo MD Date/Time: 05/04/23 10:13 Surgeon: Vinayak Castillo MD Pre Op Diagnosis: Noninfective gastroenteritis and colitis Patient Data Age: 83 Gender: F Height: 1.63 m Weight: 98.2 kg Last Vital Signs Temp 96.9 F L 05/04/23 09:54 Pulse 61 05/04/23 09:54 Resp 17 05/04/23 09:54 BP 172/76 H 05/04/23 09:54 Pulse Ox 97 05/04/23 09:54 O2 Del Method Room Air 05/04/23 09:54 Allergies Allergy/AdvReac Type Severity Reaction Status Date / Time chocolate flavor Allergy Unknown Itching Verified 05/04/23 09:53 morphine Allergy Unknown Itching Verified 05/04/23 09:53 tomato Allergy Unknown Itching Verified 05/04/23 09:53 Home Medications Medication Instructions Recorded Confirmed Type calcium carbonate 500 mg calcium 500 mg PO DAILY 02/16/22 05/04/23 History (1,250 mg) tablet cholecalciferol (vitamin D3) 50 50 mcg PO DAILY 02/16/22 05/04/23 History mcg (2,000 unit) capsule denosumab 60 mg/mL subcutaneous 60 mg subcut [id number] #1 mL 06/01/22 05/04/23 Rx syringe (Prolia) spironolactone 25 mg tablet See Rx Instructions .Route 07/14/22 05/04/23 Rx .COMPLEX #30 tabs amlodipine 10 mg tablet See Rx Instructions .Route 12/21/22 05/04/23 Rx .COMPLEX #90 tabs levothyroxine 75 mcg tablet 75 mcg PO DAILY #90 tabs 12/21/22 05/04/23 Rx pantoprazole 40 mg tablet,delayed 40 mg PO QAM #90 tabs 12/21/22 05/04/23 Rx release hydralazine 100 mg tablet See Rx Instructions .Route 12/23/22 05/04/23 Rx .COMPLEX #270 tabs duloxetine 60 mg capsule,delayed See Rx Instructions .Route 03/18/23 05/04/23 Rx release .COMPLEX #90 caps carvedilol 25 mg tablet See Rx Instructions .Route 03/22/23 05/04/23 Rx .COMPLEX #180 tabs losartan 100 mg tablet See Rx Instructions .Route 03/22/23 05/04/23 Rx .COMPLEX #90 tabs hydroxyzine HCl 10 mg tablet 10 mg PO TID PRN itching #120 tabs 04/06/23 05/04/23 Rx Patient hx anesthesia problems: none Family hx anesthesia problems: none Results Review: All pre-operative results and documents have been reviewed as part of the pre-operative evaluation. [facility] Past Medical History Medical History (Updated 04/06/23 @ 14:00 by Reuben Carlton MD) Dyslipidemia Hypertension Hypothyroid Surgical History Surgical History History of appendectomy History of section History of hysterectomy Family History Family History Mother Hypertension Heart disease Father Family history of heart disease in male family member before age 55 Social History Social History Smoking status: Never smoker Second hand tobacco smoke exposure: No Alcohol intake: never Substance use: never Substance use type: does not use Lack of Transportation: No Lack of Food: Never True Current Housing: I Have Housing Concerned About Future Housing: No Difficulty Paying Gas/Electric Bills: No Difficulty Paying for Meds: No Currently Unemployed: No Education: Associate Degree Difficulty w/ Childcare or Family Care: No Living arrangements: with family Gender identity (if verbalized by the patient): Female Spiritual care concerns: No Anes - Eval Final PreProcedure Day of Procedure 05/04/23 10:13 Patient weight: obese Heart: regular rate and rhythm Lungs: clear to auscultation Airway: Mallampati scale class II Neurological: alert and oriented Last oral intake: >/= 8 hours ASA classification: III Emergent: no Anesthetic plan: proceed Anesthesia type and monitoring: general GIVS and standard monitoring Results Review: All pre-operative results and documents have been reviewed as part of the pre-operative evaluation. Informed Consent: The pawan
[2023-05-04] MEDS: LACTATED RINGERS 1,000 ML 150 ML IV CONT (10:17)
[2023-05-04] MEDS: BENZOCAINE (*SP) 60 ML SPRAY CAN (HURRICAINE) 1 SPRAY MUCOUS MEM (11:15)
--- NOTE | 2023-05-04 11:29 | PM.HPGS ---
History of Present Illness History of Present Illness Consent: Risks, benefits, and alternatives have been discussed and questions answered. Patient agrees to proceed with procedure. Chief complaint: Noninfective gastroenteritis and colitis Narrative: Jil Zimmerman is a 83 year old female with chronic diarrhea. She will have up to 30 bowel movements per day which are watery she has also had some episodes of dysphagia. Things like pills get caught in her throat. Review of Systems Review of Systems: All systems reviewed & are unremarkable except as noted in HPI and below PMFSH Past Medical History Medical History (Updated 05/04/23 @ 11:30 by Vinayak Castillo MD) Dyslipidemia Hypertension Hypothyroid Surgical History Surgical History History of appendectomy History of section History of hysterectomy Family History Family History Mother Hypertension Heart disease Father Family history of heart disease in male family member before age 55 Social History Social History Smoking status: Never smoker Second hand tobacco smoke exposure: No Alcohol intake: never Substance use: never Substance use type: does not use Lack of Transportation: No Lack of Food: Never True Current Housing: I Have Housing Concerned About Future Housing: No Difficulty Paying Gas/Electric Bills: No Difficulty Paying for Meds: No Currently Unemployed: No Education: Associate Degree Difficulty w/ Childcare or Family Care: No Living arrangements: with family Gender identity (if verbalized by the patient): Female Spiritual care concerns: No Meds Home Medications and Allergies Home Medications Medication Instructions Recorded Confirmed Type calcium carbonate 500 mg calcium 500 mg PO DAILY 02/16/22 05/04/23 History (1,250 mg) tablet cholecalciferol (vitamin D3) 50 50 mcg PO DAILY 02/16/22 05/04/23 History mcg (2,000 unit) capsule denosumab 60 mg/mL subcutaneous 60 mg subcut [id number] #1 mL 06/01/22 05/04/23 Rx syringe (Prolia) spironolactone 25 mg tablet See Rx Instructions .Route 07/14/22 05/04/23 Rx .COMPLEX #30 tabs amlodipine 10 mg tablet See Rx Instructions .Route 12/21/22 05/04/23 Rx .COMPLEX #90 tabs levothyroxine 75 mcg tablet 75 mcg PO DAILY #90 tabs 12/21/22 05/04/23 Rx pantoprazole 40 mg tablet,delayed 40 mg PO QAM #90 tabs 12/21/22 05/04/23 Rx release hydralazine 100 mg tablet See Rx Instructions .Route 12/23/22 05/04/23 Rx .COMPLEX #270 tabs duloxetine 60 mg capsule,delayed See Rx Instructions .Route 03/18/23 05/04/23 Rx release .COMPLEX #90 caps carvedilol 25 mg tablet See Rx Instructions .Route 03/22/23 05/04/23 Rx .COMPLEX #180 tabs losartan 100 mg tablet See Rx Instructions .Route 03/22/23 05/04/23 Rx .COMPLEX #90 tabs hydroxyzine HCl 10 mg tablet 10 mg PO TID PRN itching #120 tabs 04/06/23 05/04/23 Rx Allergies Allergy/AdvReac Type Severity Reaction Status Date / Time chocolate flavor Allergy Unknown Itching Verified 05/04/23 09:53 morphine Allergy Unknown Itching Verified 05/04/23 09:53 tomato Allergy Unknown Itching Verified 05/04/23 09:53 Vital Signs Vital Signs - 24 hr 05/04/23 09:54 Temperature 36.1 C L Pulse Rate 61 Respiratory Rate 17 Blood Pressure 172/76 H Pulse Oximetry 97 Oxygen Delivery Room Air Exam Const: General: alert Orientation/consciousness: patient oriented x3 Resp: Auscultation: clear to auscultation bilaterally Cardio: Rhythm: regular rhythm GI: GI Palp: Yes Soft to palpation and No Tenderness to palpation present (GI) Neuro: General: patient oriented x3 Assessment and Plan Assessment and plan (1) Chronic diarrhea: Code(s): K52.9 - Noninfective gastroenteritis and colitis, unspecified Status: Acute (2) Dysphag
[2023-05-04 11:31] VITALS: BP 139/99; PULSE 68; RESP 17; O2SAT 99
[2023-05-04 11:41] VITALS: BP 147/77; PULSE 60; RESP 24; O2SAT 98
[2023-05-04 11:51] VITALS: BP 152/82; PULSE 61; RESP 20; O2SAT 100
== END 2023-05-04 12:03 | disposition home or self-care (01) ==
PROVIDERS: PCP Family Medicine; Visit Provider Internal Medicine Gastroenterology
PROC: 0DJ08ZZ Inspection of Upper Intestinal Tract, Via Natural or Artificial Opening Endoscopic (ICD-10-PCS; CPT 43235; principal; 2023-05-04 11:00)
DX: K22.70 Barrett's esophagus without dysplasia (principal); K44.9 Diaphragmatic hernia without obstruction or gangrene; K21.00 Gastro-esophageal reflux disease with esophagitis, without bleeding; I10 Essential (primary) hypertension; E78.5 Hyperlipidemia, unspecified; E03.9 Hypothyroidism, unspecified; E66.9 Obesity, unspecified; Z68.37 Body mass index [BMI] 37.0-37.9, adult
CPT/HCPCS: 43239; 88305; J2704; J7120

== ENCOUNTER 2023-05-05 16:22 | Outpatient (CLI) | payer OTHER, SELFPAY ==
[2023-05-05 17:00] LABS: Basophils Absolute Auto 0.1 K/mm3 (0.0-0.1); Basophils Percent Auto 0.6 % (0.2-1.2); Eosinophils Absolute Auto 0.2 K/mm3 (0-0.3); Eosinophils Percent Auto 2.7 % (0-4.4); Hematocrit 38.4 % (37.0-47.0); Hemoglobin 11.9 g/dL (12.0-15.0); Immature Granulocyte Absolute 0.03 K/mm3 (0.00-0.031); Immature Granulocyte Percent A 0.4 % (0-0.5); Lymphocytes Absolute Auto 2.03 K/mm3 (0.9-3.2); Lymphocytes Percent Auto 24.5 % (18.3-44.2); Mean Corpuscular Hemoglobin 26.3 pg (26-34); Mean Corpuscular Volume 84.8 fl (80-100); Monocytes Absolute Auto 0.8 K/mm3 (0.1-0.6); Monocytes Percent Auto 9.9 % (2.6-8.5); Neutrophils Absolute Auto 5.1 K/mm3 (1.3-6.7); Neutrophils Percent Auto 61.9 % (45.5-73.1); Platelet Count Result 346 k/mm3 (150-375); Red Blood Count 4.53 M/mm3 (4.2-5.4); Red Cell Distribution Width 14.6 % (11.5-14.5); White Blood Count 8.3 K/mm3 (4.5-10.0)
[2023-05-05 17:11] LABS: Alanine Aminotransferase 18 U/L (6-35); Albumin Level 4.2 g/dL (3.5-5.1); Alkaline Phosphatase 84 U/L (38-126); Anion Gap 11 mmol/L (8-16); Aspartate Amino Transferase 26 U/L (14-36); Bilirubin,Total 0.9 mg/dL (0.2-1.3); Blood Urea Nitrogen 34 mg/dL (7-17); Calcium 9.1 mg/dL (8.4-10.2); Carbon Dioxide 24 mmol/L (22-30); Chloride 100 mmol/L (98-107); Estimated Glomerular Filt Rate 60; Glucose 94 mg/dL (65-110); Potassium 4.3 mmol/L (3.4-5.0); Sodium 135 mmol/L (137-145)
[2023-05-05 22:01] LABS: Free T4 Free Thyroxine 1.52 ng/mL (0.78-2.19)
== END 2023-05-05 16:23 | disposition home or self-care (01) ==
PROVIDERS: PCP Family Medicine; Visit Provider Internal Medicine Cardiovascular Disease
DX: R55 Syncope and collapse (principal); I10 Essential (primary) hypertension; E03.9 Hypothyroidism, unspecified
CPT/HCPCS: 36415; 80053; 84439; 84443; 85025

== ENCOUNTER 2023-06-09 11:04 | Outpatient (CLI) | payer OTHER, SELFPAY ==
[2023-06-09 11:45] LABS: Albumin Level 3.8 g/dL (3.5-5.1); Anion Gap 4 mmol/L (8-16); Blood Urea Nitrogen 23 mg/dL (7-17); Calcium 8.8 mg/dL (8.4-10.2); Carbon Dioxide 26 mmol/L (22-30); Chloride 108 mmol/L (98-107); Estimated Glomerular Filt Rate > 60; Glucose 100 mg/dL (65-110); Phosphorus 2.9 mg/dL (2.5-4.5); Potassium 4.3 mmol/L (3.4-5.0); Sodium 138 mmol/L (137-145)
[2023-06-09 12:56] LABS: Creatinine Urine 167.1 mg/dL
[2023-06-09 14:53] LABS: Total Protein Urine Random < 5 mg/dL
[2023-06-09 14:54] LABS: Ur Ttl Prot Creatinine Ratio < 0.03 mg/mg (0-0.20)
== END 2023-06-09 11:05 | disposition home or self-care (01) ==
LOC: ANHLAB 11:06
PROVIDERS: PCP Family Medicine; Visit Provider Internal Medicine Nephrology
DX: I10 Essential (primary) hypertension (principal)
CPT/HCPCS: 36415; 80069; 82570; 84156

== ENCOUNTER 2023-09-29 08:53 | Outpatient (CLI) | payer OTHER, SELFPAY ==
--- NOTE | ~2023-09-29 | DEXA_ITS ---
Bone Density Report Name: DEBO SHOEMAKER Age: 83 Sex: Female Ethnicity: White Date of : 1940 Indication: monitoring treatment; parental hip fracture; history of glucocorticoids; hysterectomy; Referring Provider: TRAY HGOSH Study: Bone densitometry was performed. Exam Date: September 29, 2023 Accession number: [id number] Bone Density: Region BMD T-score Z-score Classification AP Spine(L1-L4) 0.957 -0.8 2.0 Normal Femoral Neck (Left) 0.618 -2.1 0.3 Osteopenia Total Hip (Left) 0.968 0.2 2.4 Normal Femoral Neck (Right) 0.637 -1.9 0.5 Osteopenia Total Hip (Right) 0.889 -0.4 1.8 Normal Total Hip Mean 0.928 -0.1 2.1 Normal World Health Organization criteria for BMD impression classify patients as: Normal (T-score at or above -1.0), Osteopenia (T-score between -1.0 and -2.5), or Osteoporosis (T-score at or below -2.5). 10-year Fracture Risk: FRAX not reported because: Treated for osteoporosis Previous Exams: Region Exam Age BMD T-score BMD Change BMD Change Date g/cm2 vs Baseline vs Previous AP Spine (L1-L4) 09/29/2023 83 0.957 -0.8 -0.005 (-0.5%) -0.036 (-3.6%) 09/29/2023 83 0.993 -0.5 0.031 (3.2%)* 0.031 (3.2%)* 11/29/2018 78 0.962 -0.8 Total Hip(Left) 09/29/2023 83 0.968 0.2 0.067 (7.5%)* 0.096 (11.1%)* 03/25/2021 81 0.872 -0.6 -0.029 (-3.2%) -0.029 (-3.2%) 11/29/2018 78 0.901 -0.3 Total Hip(Right) 09/29/2023 83 0.889 -0.4 -0.015 (-1.7%) 0.062 (7.4%)* 03/25/2021 81 0.827 -0.9 -0.077 (-8.5%) -0.077 (-8.5%) 11/29/2018 78 0.904 -0.3 *Denotes significance at 95% confidence level, LSC for AP Spine = 0.022 g/cm2, LSC for Total Hip = 0.027 g/cm2 Clinical Information Provided by Patient: Parent has had a hip fracture Has taken Glucocorticoids Is being treated for osteoporosis Has used the following medications: Prolia (i.e. denosumab), Vitamin D, Calcium Has the following medical conditions: Hysterectomy Patient maximum height was 64.5 Menopause Age: 48 No regular weight bearing exercise Drinks caffeinated beverages Onset of menses at age 14 Number of children 3 Impression: The patient has low bone mass, based on the Left Femoral Neck T-score. The patient has risk factors, including: parental hip fracture, history of glucocorticoid therapy. The BMD for the AP Spine (L1-L4) decreased, changing by -3.6% since the last DXA exam. Discussion: SIGNIFICANT BONE LOSS OBSERVED. Ad
== END 2023-09-29 08:54 | disposition home or self-care (01) ==
PROVIDERS: PCP Family Medicine; Visit Provider Family Medicine
DX: M85.89 Other specified disorders of bone density and structure, multiple sites (principal); Z78.0 Asymptomatic menopausal state
CPT/HCPCS: 77080

== ENCOUNTER 2023-12-02 08:54 | Outpatient (CLI) | payer OTHER, SELFPAY ==
[2023-12-02 09:35] LABS: Hematocrit 36.5 % (37.0-47.0); Hemoglobin 10.8 g/dL (12.0-15.0); Mean Corpuscular HGB Conc 29.6 g/dl (32-36); Mean Corpuscular Hemoglobin 24.8 pg (26-34); Mean Corpuscular Volume 83.9 fl (80-100); Mean Platelet Volume 10.1 fl (7.4-10.4); Platelet Count Result 405 k/mm3 (150-375); Red Blood Count 4.35 M/mm3 (4.2-5.4); Red Cell Distribution Width 15.1 % (11.5-14.5); White Blood Count 6.3 K/mm3 (4.5-10.0)
[2023-12-02 09:52] LABS: Creatinine Urine 171.3 mg/dL
[2023-12-02 09:53] LABS: Alanine Aminotransferase 13 U/L (6-35); Albumin Level 3.8 g/dL (3.5-5.1); Alkaline Phosphatase 87 U/L (38-126); Anion Gap 9 mmol/L (4-12); Aspartate Amino Transferase 18 U/L (14-36); Bilirubin,Total 0.4 mg/dL (0.2-1.3); Blood Urea Nitrogen 16 mg/dL (7-17); Calcium 8.3 mg/dL (8.4-10.2); Carbon Dioxide 24 mmol/L (22-30); Chloride 105 mmol/L (98-107); Cholesterol 177 mg/dL (0-200); Estimated Glomerular Filt Rate > 60; Glucose 102 mg/dL (65-110); HDL Direct 50 mg/dL; Potassium 4.3 mmol/L (3.4-5.0); Sodium 138 mmol/L (137-145); Triglycerides 135 mg/dL (<150)
[2023-12-02 10:03] LABS: LDL Cholesterol Direct 92 mg/dL
[2023-12-02 10:07] LABS: Total Protein Urine Random < 5 mg/dL; Ur Ttl Prot Creatinine Ratio < 0.03 mg/mg (0-0.20)
[2023-12-02 10:18] LABS: Free T4 Free Thyroxine 1.29 ng/mL (0.78-2.19)
== END 2023-12-02 08:55 | disposition home or self-care (01) ==
PROVIDERS: Internal Medicine Nephrology; PCP Family Medicine; Visit Provider Family Medicine
DX: I12.9 Hypertensive chronic kidney disease with stage 1 through stage 4 chronic kidney disease, or unspecified chronic kidney disease (principal); R55 Syncope and collapse; R13.10 Dysphagia, unspecified; E03.9 Hypothyroidism, unspecified; G47.33 Obstructive sleep apnea (adult) (pediatric); E66.01 Morbid (severe) obesity due to excess calories; N18.9 Chronic kidney disease, unspecified
CPT/HCPCS: 36415; 80053; 80061; 82570; 84100; 84156; 84439; 84443; 85027

== ENCOUNTER 2023-12-29 00:30 | Day surgery (SDC) | payer OTHER, SELFPAY ==
[2023-12-24 08:37] VITALS: BMI 33.5
[2023-12-29 06:50] VITALS: BP 152/65; PULSE 71; RESP 18; TEMP 36.3; O2SAT 98; BMI 33.0
[2023-12-29] MEDS: LACTATED RINGERS 1,000 ML 150 ML IV CONT (07:30)
--- NOTE | 2023-12-29 07:56 | WPDANESEPPF ---
Anes - Initial Pre Proc Eval Procedure: Operation Date: 12/29/23 08:30 Proposed Procedures p Colonoscopy - Immanuel Stokes MD Date/Time: 12/29/23 07:56 Surgeon: Immanuel Stokes MD Pre Op Diagnosis: Anemia, IBS-D, Noninfective gastritis/colitis Patient Data Age: 83 Gender: F Height: 1.65 m Weight: 90.2 kg Last Vital Signs Temp 97.4 F L 12/29/23 06:50 Pulse 71 12/29/23 06:50 Resp 18 12/29/23 06:50 BP 152/65 H 12/29/23 06:50 Pulse Ox 98 12/29/23 06:50 O2 Del Method Room Air 12/29/23 06:50 Allergies Allergy/AdvReac Type Severity Reaction Status Date / Time chocolate flavor Allergy Unknown Itching Verified 12/29/23 07:03 morphine Allergy Unknown Itching Verified 12/29/23 07:03 tomato Allergy Unknown Itching Verified 12/29/23 07:03 metronidazole [From Flagyl] Allergy Itching Verified 12/29/23 07:03 Home Medications Medication Instructions Recorded Confirmed Type calcium carbonate 500 mg PO DAILY 02/16/22 12/29/23 History cholecalciferol (vitamin D3) 50 50 mcg PO DAILY 02/16/22 12/29/23 History mcg (2,000 unit) capsule duloxetine 60 mg capsule,delayed See Rx Instructions .Route 03/18/23 12/29/23 Rx release .COMPLEX #90 caps amlodipine 10 mg tablet See Rx Instructions .Route 06/17/23 12/29/23 Rx .COMPLEX #90 tabs levothyroxine 75 mcg tablet 75 mcg PO DAILY #90 tabs 06/17/23 12/29/23 Rx losartan 50 mg tablet 50 mg PO DAILY 06/23/23 12/29/23 History pantoprazole 40 mg tablet,delayed 40 mg PO BID #180 tabs 07/22/23 12/29/23 Rx release spironolactone 25 mg tablet See Rx Instructions .Route 08/30/23 12/29/23 Rx .COMPLEX #30 tabs carvedilol 25 mg tablet See Rx Instructions .Route 09/16/23 12/29/23 Rx .COMPLEX #180 tabs hydroxyzine HCl 10 mg tablet 10 mg PO DAILY PRN Itching 12/24/23 12/29/23 History loperamide 2 mg capsule 2 mg PO QID PRN Diarrhea 12/24/23 12/29/23 History Patient hx anesthesia problems: none Family hx anesthesia problems: none Results Review: All pre-operative results and documents have been reviewed as part of the pre-operative evaluation. [facility] Past Medical History Medical History (Updated 12/07/23 @ 11:05 by Reuben Carlton MD) Dyslipidemia Hypertension Hypothyroid Surgical History Surgical History History of appendectomy History of section History of hysterectomy Family History Family History Mother Hypertension Heart disease Father Family history of heart disease in male family member before age 55 Social History Social History Smoking status: Never smoker Second hand tobacco smoke exposure: No Alcohol intake: never Substance use: never Substance use type: does not use Lack of Transportation: No Lack of Food: Never True Current Housing: I Have Housing Concerned About Future Housing: No Difficulty Paying Gas/Electric Bills: No Difficulty Paying for Meds: No Currently Unemployed: No Education: Associate Degree Difficulty w/ Childcare or Family Care: No Living arrangements: with family Gender identity (if verbalized by the patient): Female Spiritual care concerns: No Anes - Eval Final PreProcedure Day of Procedure 12/29/23 07:56 Patient weight: obese Heart: regular rate and rhythm Lungs: clear to auscultation Airway: Mallampati scale class II Neurological: alert and oriented Last oral intake: >/= 8 hours ASA classification: III Emergent: no Anesthetic plan: proceed Anesthesia type and monitoring: general GIVS and standard monitoring Results Review: All pre-operative results and documents have been reviewed as part of the pre-operative evaluation. Informed Consent: The patient's anesthetic plan and its attendant risks and benefits were discussed with the patient/family/POA. Questions
--- NOTE | 2023-12-29 08:17 | PM.HPGS ---
History of Present Illness History of Present Illness Consent: Risks, benefits, and alternatives have been discussed and questions answered. Patient agrees to proceed with procedure. Chief complaint: Anemia, IBS-D, Noninfective gastritis/colitis Narrative: Jil Zimmerman is a 83 year old female with anemia, hgb 10, also ibs-d. Last colonoscopy abput 7-8 years ago, had EGD earlier this year. Review of Systems Review of Systems: All systems reviewed & are unremarkable except as noted in HPI and below PMFSH Past Medical History Medical History (Updated 12/07/23 @ 11:05 by Reuben Carlton MD) Dyslipidemia Hypertension Hypothyroid Surgical History Surgical History History of appendectomy History of section History of hysterectomy Family History Family History Mother Hypertension Heart disease Father Family history of heart disease in male family member before age 55 Social History Social History Smoking status: Never smoker Second hand tobacco smoke exposure: No Alcohol intake: never Substance use: never Substance use type: does not use Lack of Transportation: No Lack of Food: Never True Current Housing: I Have Housing Concerned About Future Housing: No Difficulty Paying Gas/Electric Bills: No Difficulty Paying for Meds: No Currently Unemployed: No Education: Associate Degree Difficulty w/ Childcare or Family Care: No Living arrangements: with family Gender identity (if verbalized by the patient): Female Spiritual care concerns: No Meds Home Medications and Allergies Home Medications Medication Instructions Recorded Confirmed Type calcium carbonate 500 mg PO DAILY 02/16/22 12/29/23 History cholecalciferol (vitamin D3) 50 50 mcg PO DAILY 02/16/22 12/29/23 History mcg (2,000 unit) capsule duloxetine 60 mg capsule,delayed See Rx Instructions .Route 03/18/23 12/29/23 Rx release .COMPLEX #90 caps amlodipine 10 mg tablet See Rx Instructions .Route 06/17/23 12/29/23 Rx .COMPLEX #90 tabs levothyroxine 75 mcg tablet 75 mcg PO DAILY #90 tabs 06/17/23 12/29/23 Rx losartan 50 mg tablet 50 mg PO DAILY 06/23/23 12/29/23 History pantoprazole 40 mg tablet,delayed 40 mg PO BID #180 tabs 07/22/23 12/29/23 Rx release spironolactone 25 mg tablet See Rx Instructions .Route 08/30/23 12/29/23 Rx .COMPLEX #30 tabs carvedilol 25 mg tablet See Rx Instructions .Route 09/16/23 12/29/23 Rx .COMPLEX #180 tabs hydroxyzine HCl 10 mg tablet 10 mg PO DAILY PRN Itching 12/24/23 12/29/23 History loperamide 2 mg capsule 2 mg PO QID PRN Diarrhea 12/24/23 12/29/23 History Allergies Allergy/AdvReac Type Severity Reaction Status Date / Time chocolate flavor Allergy Unknown Itching Verified 12/29/23 07:03 morphine Allergy Unknown Itching Verified 12/29/23 07:03 tomato Allergy Unknown Itching Verified 12/29/23 07:03 metronidazole [From Flagyl] Allergy Itching Verified 12/29/23 07:03 Vital Signs Vital Signs - 24 hr 12/29/23 06:50 Temperature 97.4 F L Pulse Rate 71 Respiratory Rate 18 Blood Pressure 152/65 H Pulse Oximetry 98 Oxygen Delivery Room Air Exam Const: General: comfortable and no acute distress HENMT: Face/Nose/Sinus: Normal nares present Eyes: General: appearance normal, both eyes and all related structures Neck: Neck: no JVD Resp: Auscultation: clear to auscultation bilaterally Cardio: Rate: regular rate Rhythm: regular rhythm GI: Inspection: non-distended GI Palp: Yes Soft to palpation Skin: General skin exam: normal color Neuro: General: gait normal Speech: normal speech Extrem: General: normal to inspection Psych: Mental Status: mental status grossly normal Assessment and Plan Assessment and plan (1) Anemia: Code(s): D64.9 - Anemia, unspecified
[2023-12-29 08:59] VITALS: BP 135/48; PULSE 65; RESP 22; O2SAT 100
[2023-12-29 09:09] VITALS: BP 144/51; PULSE 60; RESP 12; O2SAT 100
[2023-12-29 09:19] VITALS: BP 166/54; PULSE 61; RESP 21; O2SAT 100
== END 2023-12-29 09:31 | disposition home or self-care (01) ==
PROVIDERS: PCP Family Medicine; Referring Provider Family Medicine; Visit Provider Internal Medicine Gastroenterology
PROC: 0DJD8ZZ Inspection of Lower Intestinal Tract, Via Natural or Artificial Opening Endoscopic (ICD-10-PCS; CPT 45378; principal; 2023-12-29 08:30)
DX: C19 Malignant neoplasm of rectosigmoid junction (principal); D12.2 Benign neoplasm of ascending colon; K63.5 Polyp of colon; D50.9 Iron deficiency anemia, unspecified; K64.8 Other hemorrhoids; K58.0 Irritable bowel syndrome with diarrhea; I10 Essential (primary) hypertension; E78.5 Hyperlipidemia, unspecified; E03.9 Hypothyroidism, unspecified; E66.9 Obesity, unspecified; Z68.33 Body mass index [BMI] 33.0-33.9, adult
CPT/HCPCS: 45385; 45380; 45381; 88305; 88342; J2405; J2704; J7120

== ENCOUNTER 2024-01-11 11:02 | Outpatient (CLI) | payer OTHER, SELFPAY ==
[2024-01-11 11:14] LABS: Basophils Absolute Auto 0.1 K/mm3 (0.0-0.1); Basophils Percent Auto 0.7 % (0.2-1.2); Eosinophils Absolute Auto 0.3 K/mm3 (0-0.3); Hematocrit 36.4 % (37.0-47.0); Immature Granulocyte Absolute 0.05 K/mm3 (0.00-0.031); Immature Granulocyte Percent A 0.5 % (0-0.5); Lymphocytes Absolute Auto 1.36 K/mm3 (0.9-3.2); Mean Corpuscular HGB Conc 30.2 g/dl (32-36); Mean Corpuscular Hemoglobin 24.1 pg (26-34); Mean Corpuscular Volume 79.6 fl (80-100); Mean Platelet Volume 9.3 fl (7.4-10.4); Monocytes Absolute Auto 0.6 K/mm3 (0.1-0.6); Monocytes Percent Auto 6.4 % (2.6-8.5); Neutrophils Absolute Auto 7.3 K/mm3 (1.3-6.7); Neutrophils Percent Auto 75.4 % (45.5-73.1); Platelet Count Result 459 k/mm3 (150-375); Red Blood Count 4.57 M/mm3 (4.2-5.4); Red Cell Distribution Width 14.3 % (11.5-14.5); White Blood Count 9.7 K/mm3 (4.5-10.0)
[2024-01-11 11:25] LABS: Anisocytosis 1+; Hypochromasia 1+; Microcytosis 1+ (NORMAL); Ovalocytes 1+; Platelet Estimate Increased (Adequate); Poikilocytosis 1+; Schistocytes None Seen
[2024-01-11 12:00] LABS: Iron 45 ug/dL (37-170)
[2024-01-11 12:03] LABS: Alanine Aminotransferase 13 U/L (6-35); Albumin Level 4.1 g/dL (3.5-5.1); Alkaline Phosphatase 117 U/L (38-126); Anion Gap 7 mmol/L (4-12); Aspartate Amino Transferase 31 U/L (14-36); Bilirubin,Total 0.6 mg/dL (0.2-1.3); Blood Urea Nitrogen 17 mg/dL (7-17); Calcium 8.3 mg/dL (8.4-10.2); Carbon Dioxide 29 mmol/L (22-30); Chloride 99 mmol/L (98-107); Estimated Glomerular Filt Rate 60; Glucose 126 mg/dL (65-110); Potassium 4.5 mmol/L (3.4-5.0); Sodium 135 mmol/L (137-145)
[2024-01-11 12:09] LABS: Percent Iron Saturation 12 % (20-50)
[2024-01-11 12:37] LABS: Carcinoembryonic Antigen 2.6 ng/mL (0.0-3.0); Ferritin 7.19 ng/mL (11.1-264)
== END 2024-01-11 11:03 | disposition home or self-care (01) ==
PROVIDERS: PCP Family Medicine; Visit Provider Internal Medicine Hematology & Oncology
DX: D64.9 Anemia, unspecified (principal); C18.9 Malignant neoplasm of colon, unspecified
CPT/HCPCS: 36415; 80053; 82378; 82728; 83540; 83550; 85025

== ENCOUNTER 2024-01-17 07:25 | Outpatient (CLI) | payer OTHER, SELFPAY ==
--- NOTE | ~2024-01-17 | CT_ITS ---
CT of the Abdomen and Pelvis: Indication: Intestinal disease Technique: 2.5 mm axial scans were obtained through the abdomen and pelvis following intravenous adm inistration of 100 cc of Omnipaque 350. Dose reduction technique was used on this scan by utilizing a utomated exposure control and iterative reconstruction technique. The dose-length product (DLP) was 1 103.85 mGy-cm. COMPARISON: 08/14/2022 Findings: Scans through the lung bases demonstrates small pericardial effusion. The liver, spleen, pancreas, gallbladder, adrenals and kidneys are within normal limits. There are at herosclerotic calcifications of the aorta. No lymphadenopathy. There is wall thickening of the rectum with mild infiltration of perirectal fat. Small perirectal lym ph nodes are present, measuring up to 7 mm in size. There is sigmoid diverticulosis. Images through the pelvis were performed. Urinary bladder unremarkable. No pelvic mass evident. Statu s post hysterectomy. Impression: Circumferential wall thickening involving the rectum with mild infiltration of perirectal fat. Diagno stic considerations include neoplastic disease versus possible infectious/inflammatory process. Corre late clinically. Consider colonoscopy, especially if tissue sampling is desired. There are small perirectal lymph nodes measuring up to 7 mm. Very early micky metastatic disease in t he perirectal region is a consideration. Reviewed, dictated and finalized at location M. Impression: Circumferential wall thickening involving the rectum with mild infiltration of perirectal fat. Diagnostic considerations include neoplastic disease versus pos sible infectious/inflammatory process. Correlate clinically. Consider colonosco py, especially if tissue sampling is desired. There are small perirectal lymph nodes measuring up to 7 mm. Very early micky m etastatic disease in the perirectal region is a consideration.
== END 2024-01-17 07:26 | disposition home or self-care (01) ==
PROVIDERS: PCP Family Medicine; Visit Provider Internal Medicine Gastroenterology
DX: K63.89 Other specified diseases of intestine (principal); R59.0 Localized enlarged lymph nodes
CPT/HCPCS: 74177; Q9967

== ENCOUNTER 2024-01-26 01:50 | Day surgery (SDC) | payer OTHER, SELFPAY ==
--- NOTE | 2024-01-25 08:17 | PC.NURSE ---
Report to the Outpatient Waiting Room, entrance under the green pavilion located off [facility], at time _11:00am__ on date 01/26/24 . Planned Procedure Time: _1:00pm .? Time changes happen often and if your time is changed the preop area will call you the afternoon before. - You and your visitor will be asked to self-screen and do not enter if you have any COVID symptoms. Please call surgeon if you need to reschedule. - A mask is optional within the hospital at this time. Patients may have clear liquids all day today, and then NPO after Midnight except just meds sip water in am (water, carbonated beverages, apple juice) and no smoking. Prep with Fleets Enema tonight and am before surgery tomorrow per Dr Zhang. Take only the following medications with a SIP of water on the morning of surgery: _Amlodipine, Coreg, Duloxetine and Levothyroxine DO NOT STOP ANY OF YOUR OTHER PRESCRIPTION MEDICATIONS PRIOR TO SURGERY EXCEPT THE FOLLOWING Medications to discontinue per physician All vitamins and supplements Date to take last dose____01/24/24 Please no make-up, nail azeri, hairspray, perfume, deodorant, or body powder the day of surgery.? No jewelry (including any body piercings) or valuables the day of surgery, leave them at home.? Please take a shower or bath the night before, or the morning of, surgery with an antibacterial soap.? Wear comfortable, loose fitting clothing.? . - Jewelry must be removed prior to entering the operating room.? Rings and piercings that are not removed may be cut off. - The hospital will not accept responsibility for valuables.? - Please leave all valuables, including medications, at home the day of surgery. If you are going home after surgery, a licensed crude oil driver must drive you home.? - NO public transportation without another adult if you receive anesthesia. - We recommend that an adult stay with you for 24 hours following discharge. - We also recommend that you do not drive, make important decision, drink alcoholic beverages, or take any drugs that were not prescribed by your health care provider for at least 24 hours after your discharge time. Follow any additional instructions given to you from your surgeon. Telephone instructions given to _patient __and asked if any additional questions and then verbalized understanding. Patient advised to call surgeon office or pre surgery nurse liaison [phone] if any additional questions.
[2024-01-25 08:28] VITALS: BMI 33.5
[2024-01-26] VITALS (7 sets, daily range): BP systolic 147–176; BP diastolic 65–77; PULSE 63–74; RESP 15–20; TEMP 36.2–36.6; O2SAT 96–100; BMI 32.9
[2024-01-26] MEDS: LACTATED RINGERS 1,000 ML 30 ML IV CONT (11:00)
--- NOTE | 2024-01-26 12:16 | WPDANESEPPF ---
Anes - Initial Pre Proc Eval Procedure: Operation Date: 01/26/24 13:00 Proposed Procedures p Proctosigmoidoscopy - Giancarlo Zhang MD Date/Time: 01/26/24 12:16 Surgeon: Giancarlo Zhang MD Pre Op Diagnosis: colorectal cancer Patient Data Age: 84 Gender: F Height: 1.64 m Weight: 88.4 kg Last Vital Signs Temp 97.1 F L 01/26/24 11:00 Pulse 74 01/26/24 11:00 Resp 20 01/26/24 11:00 BP 163/77 H 01/26/24 11:00 Pulse Ox 99 01/26/24 11:00 O2 Del Method Room Air 01/26/24 11:00 Allergies Allergy/AdvReac Type Severity Reaction Status Date / Time metronidazole [From Flagyl] Allergy Intermediate Itching, Verified 01/26/24 11:46 Nausea vomiting chocolate flavor Allergy Unknown Itching Verified 01/26/24 11:46 morphine Allergy Unknown Itching Verified 01/26/24 11:46 tomato Allergy Unknown Itching Verified 01/26/24 11:46 Home Medications Medication Instructions Recorded Confirmed Type calcium carbonate 500 mg PO DAILY 02/16/22 01/26/24 History cholecalciferol (vitamin D3) 50 50 mcg PO DAILY 02/16/22 01/26/24 History mcg (2,000 unit) capsule duloxetine 60 mg capsule,delayed See Rx Instructions .Route 03/18/23 01/26/24 Rx release .COMPLEX #90 caps losartan 50 mg tablet 50 mg PO DAILY 06/23/23 01/26/24 History pantoprazole 40 mg tablet,delayed 40 mg PO BID #180 tabs 07/22/23 01/26/24 Rx release spironolactone 25 mg tablet See Rx Instructions .Route 08/30/23 01/26/24 Rx .COMPLEX #30 tabs carvedilol 25 mg tablet See Rx Instructions .Route 09/16/23 01/26/24 Rx .COMPLEX #180 tabs hydroxyzine HCl 10 mg tablet 10 mg PO DAILY PRN Itching 12/24/23 01/26/24 History loperamide 2 mg capsule 2 mg PO QID PRN Diarrhea 12/24/23 01/26/24 History amlodipine 10 mg tablet See Rx Instructions .Route 09/23/24 09/25/24 Rx .COMPLEX #90 tabs ferrous sulfate 325 mg (65 mg 325 mg PO DAILY 01/24/24 01/26/24 History iron) tablet (FeroSul) levothyroxine 75 mcg tablet 75 mcg PO DAILY #90 tabs 01/24/24 01/26/24 Rx denosumab 60 mg/mL subcutaneous 60 mg subcut USEASDIRECTD 01/25/24 01/26/24 History syringe (Prolia) Patient hx anesthesia problems: none Family hx anesthesia problems: none Results Review: All pre-operative results and documents have been reviewed as part of the pre-operative evaluation. [facility] Past Medical History Medical History Colonic mass Dyslipidemia Hypertension Hypothyroid Surgical History Surgical History History of appendectomy History of bladder suspension procedure History of section History of hysterectomy Family History Family History Mother Hypertension Heart disease Father Family history of heart disease in male family member before age 55 Social History Social History Smoking status: Never smoker Second hand tobacco smoke exposure: No Alcohol intake: never Substance use: never Substance use type: does not use Lack of Transportation: No Lack of Food: Never True Current Housing: I Have Housing Concerned About Future Housing: No Difficulty Paying Gas/Electric Bills: No Difficulty Paying for Meds: No Currently Unemployed: No Education: Associate Degree Difficulty w/ Childcare or Family Care: No Living arrangements: with family Additional living arrangements comments: Gender identity (if verbalized by the patient): Female Spiritual care concerns: No Anes - Eval Final PreProcedure Day of Procedure 01/26/24 12:16 Patient weight: obese Heart: regular rate and rhythm Lungs: clear to auscultation Airway: Mallampati scale and special considerations (Upper caps. ) Neurological: alert and oriented Last oral intake: >/= 8 hours ASA classification: III
--- NOTE | 2024-01-26 13:12 | WPDHPUPDATE1 ---
History and Physical Update Update Date/Time: 01/26/24 13:12 History and Physical has been reviewed, including an updated exam of the patient. There are NO changes in the patient's condition. Risks, benefits, and alternatives have been discussed and questions answered. Patient agrees to proceed with procedure.
--- NOTE | 2024-01-26 13:37 | W.PM.PROC2 ---
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 Tumor was not palpable by digital rectal exam. She is taken to surgery now for rigid proctosigmoidoscopy to more accurately ascertain the location of the tumor. Findings Lower margin of the tumor was at 9 cm. This was very similar to the colonoscopically findings. This would make it a rectal cancer although in the upper 3rd of the rectum. Description of Procedure Patient was taken to surgery and induced into general anesthesia. She was then placed in prone darwin-knife position. Perianal area was prepped and toweled off. Rigid proctosigmoidoscope was then introduced. Insufflating with air it was carefully advanced to the lower margin of the tumor. I did try to advance beyond this but the rectum would not distend adequately that I could pass the tumor without fear of injury or bleeding. After rechecking it 2 or 3 times, lower margin was definitely at 9 cm. We then evacuated the insufflation air and discontinued the procedure. Estimated Blood Loss 0 Pathology None sent Complications None Condition Stable Disposition PACU [facility] Billing Surgery - Charge Forward: Surgery Billing (Proctosigmoidoscopy)
--- NOTE | 2024-01-26 15:27 | SUR.PHASEII ---
MD Zhang contacted - pt reporting dripping blood from rectum when she went to the bathroom. Pt unable to quantify how much. Peripad in place dry. MD Zhang contacted. Pt ok to discharge home per MD Zhang. Pt education provided that some bleeding is normal per MD, however contact surgeon or go to ER if excessive.
== END 2024-01-26 15:39 | disposition home or self-care (01) ==
PROVIDERS: PCP Family Medicine; Visit Provider Surgery
PROC: 0DJD8ZZ Inspection of Lower Intestinal Tract, Via Natural or Artificial Opening Endoscopic (ICD-10-PCS; CPT 45300; principal; 2024-01-26 13:00)
DX: C20 Malignant neoplasm of rectum (principal); I10 Essential (primary) hypertension; E78.5 Hyperlipidemia, unspecified; E03.9 Hypothyroidism, unspecified; E66.9 Obesity, unspecified; Z68.32 Body mass index [BMI] 32.0-32.9, adult
CPT/HCPCS: 45330; J1100; J2405; J2704; J3010; J7120

== ENCOUNTER 2024-05-16 18:08 | Emergency (ER) | payer OTHER, SELFPAY ==
--- NOTE | ~2024-05-16 | XR_ITS ---
CHEST RADIOGRAPH CLINICAL HISTORY: Anemia, . COMPARISON: 04/02/2023 TECHNIQUE: Single portable view of the chest. FINDINGS The cardiomediastinal silhouette is unremarkable. Interval development of a moderate left-sided pleural effusion, when compared with previous examinati on. The remainder of the lungs are clear. Visualized osseous structures and soft tissues are unremarkable. IMPRESSION: Left-sided pleural effusion without focal infiltrate Reviewed, dictated and finalized at location A. CASTING MACHINE OPERATOR HELPER
--- NOTE | ~2024-05-16 | US_ITS ---
EXAMINATION: US venous doppler [facility] DATE: 05/16/2024 22:03 INDICATION: Lower extremity edema TECHNIQUE: Grayscale ultrasound images without and with compression and Doppler ultrasound images of the bilateral lower extremity veins were obtained. COMPARISON: None. FINDINGS: The visualized portions of right common femoral vein, profunda (deep) femoral vein, femoral vein, pop liteal vein, peroneal veins, posterior tibial veins, and greater saphenous vein outflow are patent. The visualized portions of left common femoral vein, profunda femoral vein, femoral vein and poplitea l veins are patent. Greater saphenous vein outflow is patent. Noncompressibility within the left posterior tibial vein and peroneal veins IMPRESSION: Thrombosis of the left posterior tibial and peroneal veins. The right and remainder of the left are unremarkable. Reviewed, dictated and finalized at location A. IZE MACHINE HELPER
--- NOTE | ~2024-05-16 | CT_ITS ---
CLINICAL INDICATION: Abdominal pain with lower extremity swelling. Personal history of colon cancer w ith recent abdominal surgery performed COMPARISON: 01/17/2024 (preoperative evaluation). TECHNIQUE: Multiple contiguous axial images of the abdomen and pelvis were performed following the ad ministration of with 100 mL Omnipaque-350 intravenous contrast The dose-length product (DLP) was 1127.28 mGy-cm. Automated exposure control and iterative reconstruction technique were employed. FINDINGS/OBSERVATIONS: Visualized lower thorax: Left-sided pleural effusion with adjacent compressive consolidation. The right lung bases clear. The heart is of normal size, without pericardial effusion. Small hiatal hernia is present. Liver: The liver enhances homogeneously and is not enlarged measuring 16 cm in longitudinal dimension. Gallbladder and biliary system: The gallbladder is only minimally distended, and otherwise unremarkable. Pancreas: The pancreas enhances homogeneously without ductal dilatation. Spleen: The spleen enhances homogeneously and is not enlarged measuring 6 cm in longitudinal dimension. Kidneys: The bilateral kidneys enhance symmetrically without hydronephrosis or renal calculi. Adrenal glands: Unremarkable. Gastrointestinal tract: Circular staple line within the deep pelvis, suggesting prior low anterior resection surgery likely p rotecting loop ileostomy to the right of midline. Appendix: Clip is identified along the posterior wall of the cecum suggesting prior appendectomy. Vasculature: Densely calcified atherosclerotic disease. No aneurysmal dilatation or dissection. Lymph nodes: Scattered nonpathologically enlarged or morphologically suspicious lymph nodes within the retroperito neum or at the root of the mesentery. Pelvic structures: The bladder is only minimally distended, and otherwise unremarkable. Multiple calcifications within the atrophic uterus. Body wall and musculoskeletal: Findings along the anterior abdominal wall for which a recent midline surgery is suspected. Trace degenerative disease within the lower thoracic and lumbosacral spine. IMPRESSION: No acute intra-abdominal pathology, as detailed above. Postoperative change within the abdomen and pelvis, consistent with recent surgical intervention. Left-sided pleural effusion with adjacent compressive consolidation. Reviewed, dictated and finalized at location A. TESTBOARD WORKER IMPRESSION: No acute intra-abdominal pathology, as detailed above. Postoperative change within the abdomen and pelvis, consistent with recent surg ical intervention. Left-sided pleural effusion with adjacent compressive consolidation.
[2024-05-16 18:18] VITALS: BP 182/75; PULSE 82; RESP 16; TEMP 36.2; O2SAT 100
[2024-05-16 21:17] LABS: INR 1.2; Prothrombin Time 15.5 Seconds (11.1-14.7)
[2024-05-16 21:18] LABS: Alanine Aminotransferase 23 U/L (6-35); Albumin Level 3.3 g/dL (3.5-5.1); Alkaline Phosphatase 110 U/L (38-126); Anion Gap 9 mmol/L (4-12); Aspartate Amino Transferase 28 U/L (14-36); Bilirubin,Total 0.4 mg/dL (0.2-1.3); Blood Urea Nitrogen 19 mg/dL (7-17); Calcium 8.2 mg/dL (8.4-10.2); Carbon Dioxide 20 mmol/L (22-30); Chloride 112 mmol/L (98-107); Estimated CRCL calculation 45 ml/min; Estimated Glomerular Filt Rate 60; Glucose 116 mg/dL (65-110); Partial Thromboplastin Time 33.8 Seconds (22.3-36.8); Potassium 3.9 mmol/L (3.4-5.0); Sodium 141 mmol/L (137-145)
[2024-05-16 21:33] VITALS: BP 177/71; PULSE 78; RESP 16; O2SAT 100
--- NOTE | 2024-05-16 21:34 | PC.NURSE ---
lab called to add on ordered bnp, lipase and magnesium.
[2024-05-16 21:44] LABS: Add Urine Microscopic? NO; Appearance Urine Clear (Clear); Bilirubin Urine Negative (Negative); Blood Urine Negative (Negative); Color Urine Yellow (Yellow); Glucose Urine UA Negative (Negative); Ketones Urine Negative (Negative); Leukocyte Esterase Ur Negative LEU/UL (Negative); Nitrate Urine Negative (Negative); Protein Urine Negative (Negative); Specific Grav Ur 1.015 (1.001-1.035); Urobilinogen Urine 0.2 mg/dL (<2.0)
[2024-05-16 21:46] LABS: Basophils Absolute Auto 0.1 K/mm3 (0.0-0.1); Basophils Percent Auto 0.8 % (0.2-1.2); Eosinophils Absolute Auto 0.5 K/mm3 (0-0.3); Eosinophils Percent Auto 5.3 % (0-4.4); Hematocrit 26.5 % (37.0-47.0); Hemoglobin 8.1 g/dL (12.0-15.0); Immature Granulocyte Absolute 0.05 K/mm3 (0.00-0.031); Immature Granulocyte Percent A 0.5 % (0-0.5); Lymphocytes Absolute Auto 1.48 K/mm3 (0.9-3.2); Lymphocytes Percent Auto 14.7 % (18.3-44.2); Mean Corpuscular HGB Conc 30.6 g/dl (32-36); Mean Corpuscular Hemoglobin 24.4 pg (26-34); Mean Corpuscular Volume 79.8 fl (80-100); Mean Platelet Volume 9.2 fl (7.4-10.4); Monocytes Absolute Auto 0.7 K/mm3 (0.1-0.6); Monocytes Percent Auto 6.5 % (2.6-8.5); Neutrophils Absolute Auto 7.3 K/mm3 (1.3-6.7); Neutrophils Percent Auto 72.2 % (45.5-73.1); Platelet Count Result 405 k/mm3 (150-375); Red Blood Count 3.32 M/mm3 (4.2-5.4); Red Cell Distribution Width 17.1 % (11.5-14.5); White Blood Count 10.1 K/mm3 (4.5-10.0)
[2024-05-16 22:00] LABS: Lactic Acid Reflex 1.3 mmol/L (0.7-2.0)
[2024-05-16 22:17] LABS: Lipase 163 U/L (23-300); Magnesium 0.7 mg/dL (1.6-2.3); NT Pro B Type Natriuretic Pept 597 pg/mL (19.9-100)
[2024-05-16] MEDS: MAGNESIUM SULF 2 GM/WATER 50ML 2 GM/50 ML BAG IVPB (22:27)
[2024-05-16 22:28] VITALS: PULSE 82; RESP 16; O2SAT 100
[2024-05-17 00:18] VITALS: BP 145/69; PULSE 78; RESP 19; TEMP 36.4; O2SAT 100
[2024-05-17] MEDS: MAGNESIUM SULF 2 GM/WATER 50ML 2 GM/50 ML BAG IVPB (00:25)
[2024-05-17 01:09] VITALS: BP 171/65; PULSE 76; RESP 14; TEMP 36.6; O2SAT 100
[2024-05-17 03:11] VITALS: PULSE 81; RESP 18; TEMP 37; O2SAT 97
[2024-05-17 04:13] LABS: Magnesium 1.8 mg/dL (1.6-2.3)
[2024-05-17 05:10] VITALS: BP 152/74; PULSE 80; RESP 18; TEMP 36.8; O2SAT 97
--- NOTE | 2024-05-17 05:57 | ED.GENADULT ---
HPI - General Adult General Chief complaint: Recheck/Abnormal Lab/Rx Stated complaint: low hgb Time Seen by Provider: 05/16/24 20:18 History of Present Illness HPI narrative: This is an 84-year-old female sent to the ED for abnormal labs. Patient had hemoglobin pulled at her rehab center that came back at 6.9. She is then sent to the ED for evaluation. 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 She is now in rehab and has a wound VAC and an open incision on her abdomen. Patient states that she feels well overall and would not come in the ED except for the lab work. She has noted that her legs are more swollen than usual. She denies fevers chest pain difficulty breathing abdominal pain diarrhea nausea vomiting or urinary symptoms. Related Data Home Medications ?Medication ?Instructions ?Recorded ?Confirmed ?Last Taken ?Type calcium carbonate 500 mg PO DAILY 02/16/22 01/26/24 3 Days Ago History ~01/23/24 cholecalciferol (vitamin D3) 50 50 mcg PO DAILY 02/16/22 01/26/24 3 Days Ago History mcg (2,000 unit) capsule ~01/23/24 losartan 50 mg tablet 50 mg PO DAILY 06/23/23 01/26/24 01/25/24 History hydroxyzine HCl 10 mg tablet 10 mg PO DAILY PRN Itching 12/24/23 01/26/24 12/28/23 History loperamide 2 mg capsule 2 mg PO QID PRN Diarrhea 12/24/23 01/26/24 12/28/23 History ferrous sulfate 325 mg (65 mg 325 mg PO DAILY 01/24/24 01/26/24 01/25/24 History iron) tablet (FeroSul) denosumab 60 mg/mL subcutaneous 60 mg subcut USEASDIRECTD 01/25/24 01/26/24 Unknown History syringe (Prolia) Allergies Allergy/AdvReac Type Severity Reaction Status Date / Time metronidazole (From Flagyl) Allergy Intermediate Itching, Verified 05/16/24 18:15 Nausea vomiting chocolate flavor Allergy Unknown Itching Verified 05/16/24 18:15 morphine Allergy Unknown Itching Verified 05/16/24 18:15 tomato Allergy Unknown Itching Verified 05/16/24 18:15 PMFSH Past Medical History Medical History Colonic mass Dyslipidemia Hypothyroid Hypertension Surgical History Surgical History History of bladder suspension procedure History of section History of hysterectomy History of appendectomy Family History Family History Mother Hypertension Heart disease Father Family history of heart disease in male family member before age 55 Social History Social History Smoking status: Never smoker Second hand tobacco smoke exposure: No Alcohol intake: never Substance use: never Substance use type: does not use Lack of Transportation: No Lack of Food: Never True Current Housing: I Have Housing Concerned About Future Housing: No Difficulty Paying Gas/Electric Bills: No Difficulty Paying for Meds: No Currently Unemployed: No Education: Associate Degree Difficulty w/ Childcare or Family Care: No Living arrangements: with family Additional living arrangements comments: Gender identity (if verbalized by the patient): Female Spiritual care concerns: No Exam Narrative: APPEARANCE: No apparent distress. Head: atraumatic. EYES: EOMI, NOSE: Atraumatic NECK: Trachea midline RESPIRATORY: No increased rate of breathing clear to auscultation CARDIOVASCULAR: RRR, pitting edema lower extremities ABDOMINAL: Soft nontender, colostomy bag in place with brown stool. Some mild erythema around the incision site resulted after leaked bowel contents. No cellulitic changes. MUSCULOSKELETAl: No obvious deformities NEURO: Alert. Moving 4/4 extremities SKIN:: Warm, dry. Normal color PSYCHIATRIC: Normal affect Course Vital Signs Vital signs: Vital Signs Temperature 97.2 F L 05/16/24 18:18 Pulse Rate 82 05/16/24 18:18 Respiratory Rate 16 05/16/24 18:18 Blood Pressure 182/75 H 05/16/24 18:18 Pulse Oximetry 100 05/16/24 18:18 Oxygen Delivery Room Air 05/16/24 18:18 Temperature 98.6 F 05/17/24 03:11 Pulse Rate 81 05/17/24 03:11 Respiratory Rate 18 05/17/24 03:11 Blood Pressure 171/65 H 05/17/24 01:09 Pulse Oximetry 97 05/17/24 03:11 Oxygen Delivery Room Air 05/16/24 18:18 Medical Decision Making MDM Narrative Medical decision making narrative: -Course: 84-year-old female presenting for abnormal labs. Hemoglobin was 6.9 at the halfway, however here it is 8.1. She does have pitting edema of the lower extremities and a DVT ultrasound revealed peroneal DVT. . Due to her lower hemoglobin I reached out to [facility] to consult with their surgical team. The covering physician Dr. Feliciano said to start anticoagulation. Patient placed on Eliquis. Patient incidentally found to have low magnesium although she is asymptomatic. This was repleted with return to normal levels. Patient will need repeat lab work in 48 hours to ensure that her hemoglobin is not downtrending and her magnesium remains stable. This is been discussed with the patient and her daughter and they are comfortable getting the lab work from her primary care physician or from the rehab center. Given return precautions for bleeding, chest pain or shortness of breath. -DDX includes but is not limited to: Iron deficiency anemia, GI bleed, DVT, hypomagnesemia -Discussion of Management/Consultants:[facility] T/f line, Covering surgeon. -Shared decision making / Disposition:discharged. Vital Signs Vital Signs: Vital Signs Temperature 97.2 F L 05/16/24 18:18 Pulse Rate 82 05/16/24 18:18 Respiratory Rate 16 05/16/24 18:18 Blood Pressure 182/75 H 05/16/24 18:18 Pulse Oximetry 100 05/16/24 18:18 Oxygen Delivery Room Air 05/16/24 18:18 Temperature 98.6 F 05/17/24 03:11 Pulse Rate 81 05/17/24 03:11 Respiratory Rate 18 05/17/24 03:11 Blood Pressure 171/65 H 05/17/24 01:09 Pulse Oximetry 97 05/17/24 03:11 Oxygen Delivery Room Air 05/16/24 18:18 Lab Data 05/16/24 21:28 05/16/24 20:53 Labs: Lab Results 05/16/24 05/16/24 05/16/24 Range/Units 20:52 20:53 21:28 WBC 10.1 H (4.5-10.0) K/mm3 RBC 3.32 L (4.2-5.4) M/mm3 Hgb 8.1 L (12.0-15.0) g/dL Hct 26.5 L (37.0-47.0) % MCV 79.8 L (80-100) fl MCH 24.4 L (26-34) pg MCHC 30.6 L (32-36) g/dl RDW 17.1 H (11.5-14.5) % Plt Count 405 H (150-375) k/mm3 MPV 9.2 (7.4-10.4) fl Immature Gran % (Auto) 0.5 (0-0.5) % Neut % (Auto) 72.2 (45.5-73.1) % Lymph % (Auto) 14.7 L (18.3-44.2) % Frederick % (Auto) 6.5 (2.6-8.5) % Eos % (Auto) 5.3 H (0-4.4) % Baso % (Auto) 0.8 (0.2-1.2) % Lymph # (Auto) 1.48 (0.9-3.2) K/mm3 Frederick # (Auto) 0.7 H (0.1-0.6) K/mm3 Eos # (Auto) 0.5 H (0-0.3) K/mm3 Baso # (Auto) 0.1 (0.0-0.1) K/mm3 Abs Immat Gran (auto) 0.05 H (0.00-0.031) K/mm3 Absolute Neuts (auto) 7.3 H (1.3-6.7) K/mm3 Absolute Nucleated RBC 0.000 (0.0-0.012) K/mm3 Nucleated RBC % 0.0 (0.0-0.2) % PT 15.5 H (11.1-14.7) Seconds INR 1.2 APTT 33.8 (22.3-36.8) Seconds Sodium 141 (137-145) mmol/L Potassium 3.9 (3.4-5.0) mmol/L Chloride 112 H (98-107) mmol/L Carbon Dioxide 20 L (22-30) mmol/L Anion Gap 9 (4-12) mmol/L BUN 19 H (7-17) mg/dL Creatinine 0.90 (0.7-1.0) mg/dL Estim Creat Clear Calc 45 ml/min Estimated GFR 60 (59 - ) Glucose 116 H (65-110) mg/dL Lactic Acid 1.3 (0.7-2.0) mmol/L Calcium 8.2 L (8.4-10.2) mg/dL Magnesium 0.7 L (1.6-2.3) mg/dL Total Bilirubin 0.4 (0.2-1.3) mg/dL AST 28 (14-36) U/L ALT 23 (6-35) U/L Alkaline Phosphatase 110 (38-126) U/L NT-Pro-B Natriuret Pep 597 H (19.9-100) pg/mL Total Protein 7.0 (6.3-8.2) g/dL Albumin 3.3 L (3.5-5.1) g/dL Lipase 163 (23-300) U/L Urine Color Yellow (Yellow) Urine Appearance Clear (Clear) Urine pH 5.0 (5.0-9.0) Ur Specific Lynco 1.015 (1.001-1.035) Urine Protein Negative (Negative) mg/dL Urine Glucose (UA) Negative (Negative) mg/dL Urine Ketones Negative (Negative) mg/dL Ur Blood (Man) Negative (Negative) Urine Nitrate Negative (Negative) Urine Bilirubin Negative (Negative) Urine Urobilinogen 0.2 (<2.0) mg/dL Leukocyte Esterase Rfl Negative (Negative) ALBERTO/UL Blood Type A Positive Antibody Screen Negative 05/17/24 Range/Units 04:00 WBC (4.5-10.0) K/mm3 RBC (4.2-5.4) M/mm3 Hgb (12.0-15.0) g/dL Hct (37.0-47.0) % MCV (80-100) fl MCH (26-34) pg MCHC (32-36) g/dl RDW (11.5-14.5) % Plt Count (150-375) k/mm3 MPV (7.4-10.4) fl Immature Gran % (Auto) (0-0.5) % Neut % (Auto) (45.5-73.1) % Lymph % (Auto) (18.3-44.2) % Frederick % (Auto) (2.6-8.5) % Eos % (Auto) (0-4.4) % Baso % (Auto) (0.2-1.2) % Lymph # (Auto) (0.9-3.2) K/mm3 Frederick # (Auto) (0.1-0.6) K/mm3 Eos # (Auto) (0-0.3) K/mm3 Baso # (Auto) (0.0-0.1) K/mm3 Abs Immat Gran (auto) (0.00-0.031) K/mm3 Absolute Neuts (auto) (1.3-6.7) K/mm3 Absolute Nucleated RBC (0.0-0.012) K/mm3 Nucleated RBC % (0.0-0.2) % PT (11.1-14.7) Seconds INR APTT (22.3-36.8) Seconds Sodium (137-145) mmol/L Potassium (3.4-5.0) mmol/L Chloride (98-107) mmol/L Carbon Dioxide (22-30) mmol/L Anion Gap (4-12) mmol/L BUN (7-17) mg/dL Creatinine (0.7-1.0) mg/dL Estim Creat Clear Calc ml/min Estimated GFR (59 - ) Glucose (65-110) mg/dL Lactic Acid (0.7-2.0) mmol/L Calcium (8.4-10.2) mg/dL Magnesium 1.8 (1.6-2.3) mg/dL Total Bilirubin (0.2-1.3) mg/dL AST (14-36) U/L ALT (6-35) U/L Alkaline Phosphatase (38-126) U/L NT-Pro-B Natriuret Pep (19.9-100) pg/mL Total Protein (6.3-8.2) g/dL Albumin (3.5-5.1) g/dL Lipase (23-300) U/L Urine Color (Yellow) Urine Appearance (Clear) Urine pH (5.0-9.0) Ur Specific Lynco (1.001-1.035) Urine Protein (Negative) mg/dL Urine Glucose (UA) (Negative) mg/dL Urine Ketones (Negative) mg/dL Ur Blood (Man) (Negative) Urine Nitrate (Negative) Urine Bilirubin (Negative) Urine Urobilinogen (<2.0) mg/dL Leukocyte Esterase Rfl (Negative) ALBERTO/UL Blood Type Antibody Screen Discharge Plan Discharge Clinical Impression: DVT (deep venous thrombosis), Anemia, Hypomagnesemia Patient Disposition: Home, Self-Care Condition: Stable Instructions: Antibiotic Form, Deep Vein Thrombosis (DC), Hypomagnesemia (ED) Additional Instructions: You were seen in the emergency department for abnormal labs. Today your hemoglobin was 8.1 which does not required transfusion. You were found have a DVT in her leg and will require anticoagulation. Please take Eliquis as directed. Additionally your magnesium was low. You will need repeat lab work in 48 hours to ensure your hemoglobin and magnesium are staying stable. Please contact your primary care physician and your surgeon to discuss your hemoglobin, magnesium, and DVT. Patient Language: [place] Citizen Prescriptions: New Eliquis DVT-PE Treat 30D Start 5 mg (74 tabs) tablets,dose pack See Rx Instructions .ROUTE .COMPLEX Qty: 74 0RF Rx Instructions: orally per package directions No Action calcium carbonate 500 mg calcium (1,250 mg) tablet 500 mg PO DAILY cholecalciferol (vitamin D3) 50 mcg (2,000 unit) capsule 50 mcg PO DAILY losartan 50 mg tablet 50 mg PO DAILY pantoprazole 40 mg tablet,delayed release (DR/EC) 40 mg PO BID Qty: 180 1RF ferrous sulfate [FeroSul] 325 mg (65 mg iron) tablet 325 mg PO DAILY loperamide 2 mg Capsule 2 mg PO QID PRN (Reason: Diarrhea) hydroxyzine HCl 10 mg tablet 10 mg PO DAILY PRN (Reason: Itching) Prolia 60 mg/mL syringe 60 mg SUBCUT USEASDIRECTD Patient Comments: Twice a year in August and January on hold for now duloxetine 60 mg capsule,delayed release(DR/EC) See Rx Instructions .ROUTE .COMPLEX Qty: 90 1RF Dose Instruction: TAKE 1 CAPSULE BY MOUTH EVERY DAY Rx Instructions: TAKE 1 CAPSULE BY MOUTH EVERY DAY spironolactone 25 mg tablet See Rx Instructions .ROUTE .COMPLEX Qty: 30 11RF Dose Instruction: TAKE 1 TABLET BY MOUTH 1 (ONE) TIME EACH DAY Rx Instructions: TAKE 1 TABLET BY MOUTH 1 (ONE) TIME EACH DAY carvedilol 25 mg tablet See Rx Instructions .ROUTE .COMPLEX Qty: 180 1RF Dose Instruction: TAKE 1 TABLET BY MOUTH EVERY 12 HOURS Rx Instructions: TAKE 1 TABLET BY MOUTH EVERY 12 HOURS amlodipine 10 mg tablet See Rx Instructions .ROUTE .COMPLEX Qty: 90 1RF Dose Instruction: TAKE 1 TABLET BY MOUTH EVERY DAY Rx Instructions: TAKE 1 TABLET BY MOUTH EVERY DAY levothyroxine 75 mcg tablet 75 mcg PO DAILY Qty: 90 1RF Follow-up/Referrals: Kacie Naylor MD [Primary Care Provider] - 2 Days (Repeat Hgb and magnesium in 48 hours.)
[2024-05-17 06:37] VITALS: BP 163/93; PULSE 88; RESP 20; O2SAT 99
== END 2024-05-17 06:38 ==
PROVIDERS: Emergency Provider Emergency Medicine; PCP Internal Medicine
DX: I82.452 Acute embolism and thrombosis of left peroneal vein (principal); I82.442 Acute embolism and thrombosis of left tibial vein; D64.9 Anemia, unspecified; E83.42 Hypomagnesemia; E78.5 Hyperlipidemia, unspecified; E03.9 Hypothyroidism, unspecified; I10 Essential (primary) hypertension; Z90.710 Acquired absence of both cervix and uterus; Z85.038 Personal history of other malignant neoplasm of large intestine; Z90.49 Acquired absence of other specified parts of digestive tract; Z93.3 Colostomy status; Z79.899 Other long term (current) drug therapy
CPT/HCPCS: 36415; 71045; 74177; 80053; 81003; 83605; 83690; 83735; 83880; 85025; 85610; 85730; 86850; 86900; 86901; 93970; 96365; 96366; 99284; J3475; Q9967

== ENCOUNTER 2024-08-01 14:15 | Outpatient (CLI) | payer OTHER, SELFPAY ==
[2024-08-01 15:19] LABS: Hematocrit 29.5 % (37.0-47.0); Hemoglobin 8.9 g/dL (12.0-15.0); Mean Corpuscular HGB Conc 30.2 g/dl (32-36); Mean Corpuscular Hemoglobin 23.9 pg (26-34); Mean Corpuscular Volume 79.1 fl (80-100); Mean Platelet Volume 9.6 fl (7.4-10.4); Platelet Count Result 422 k/mm3 (150-375); Red Blood Count 3.73 M/mm3 (4.2-5.4); Red Cell Distribution Width 14.1 % (11.5-14.5)
[2024-08-01 15:25] LABS: Add Urine Microscopic? NO; Appearance Urine Clear (Clear); Bilirubin Urine Negative (Negative); Blood Urine Negative (Negative); Color Urine Yellow (Yellow); Glucose Urine UA Negative (Negative); Ketones Urine Negative (Negative); Leukocyte Esterase Ur Negative LEU/UL (Negative); Nitrate Urine Negative (Negative); Protein Urine Negative (Negative); Specific Grav Ur 1.016 (1.001-1.035); Urobilinogen Urine 0.2 mg/dL (<2.0)
[2024-08-01 15:37] LABS: Alanine Aminotransferase 18 U/L (6-35); Albumin Level 3.7 g/dL (3.5-5.1); Alkaline Phosphatase 126 U/L (38-126); Anion Gap 8 mmol/L (4-12); Aspartate Amino Transferase 22 U/L (14-36); Bilirubin,Total 0.3 mg/dL (0.2-1.3); Blood Urea Nitrogen 22 mg/dL (7-17); Calcium 9.2 mg/dL (8.4-10.2); Carbon Dioxide 24 mmol/L (22-30); Chloride 105 mmol/L (98-107); Estimated Glomerular Filt Rate 42; Glucose 95 mg/dL (65-110); Magnesium 1.6 mg/dL (1.6-2.3); Potassium 4.5 mmol/L (3.4-5.0); Sodium 137 mmol/L (137-145)
--- OUTSIDE RECORDS SUMMARY | 2024-08-01 15:41 | XMS_ITS | Clinical Summary ---
Author Organization [facility] Address [address] [place] [address] Care Team Providers Care Risk Developer Name Role Phone Unavailable Primary Care Provider Unavailabl e Allergies Active Allergy Reactions Criticality Noted Date Comments Metronidazole Itching,Rash,Nausea And Vomiting,Other (See Comments) Low 01/09/2020 Other Reaction(s): Other Morphine Itching,Other (See Comments),Rash,Nausea And Vomiting Low 01/09/2020 Feels like I am floating Other Reaction(s): Other Medications acetaminophen (TYLENOL) 325 MG tablet Take 2 tablets (650 mg total) by mouth every 6 (six) hours. 5 Active ammonium lactate (LAC-HYDRIN) 12 % lotion Apply topically every 12 (twelve) hours as needed (Itching). 5 Active amLODIPine (NORVASC) 10 MG tablet Take 1 tablet (10 mg total) by mouth in the morning. 5 Active ascorbic acid (VITAMIN C) 500 MG tablet 1 tablet (500 mg total) by PO/Per Tube route in the morning and 1 tablet (500 mg total) before bedtime. 5 Active carvedilol (COREG) 25 MG tablet 2 tablets (50 mg total) by PO/Per Tube route in the morning and 2 tablets (50 mg total) before bedtime. 5 Active cholecalciferol (VITAMIN D3) 1.25 MG (69073 UT) capsule Take 1 capsule (50,000 Units total) by mouth once a week. 5 Active diphenhydrAMINE (BENADRYL) 25 mg capsule 1 capsule (25 mg total) by PO/Per Tube route every 6 (six) hours as needed (itching). 5 Active diphenhydrAMINE-zi nc acetate (BENADRYL) cream Apply topically 3 (three) times a day as needed (as needed for itching). 5 Active DULoxetine (CYMBALTA) 60 MG capsule Take 1 capsule (60 mg total) by mouth in the morning. 5 Active gabapentin (NEURONTIN) 100 MG capsule 1 capsule (100 mg total) by PO/Per Tube route 3 (three) times a day. 5 Active hydrALAZINE (APRESOLINE) 50 MG tablet 1 tablet (50 mg total) by PO/Per Tube route every 8 (eight) hours. 5 Active levothyroxine (SYNTHROID) 88 MCG tablet Take 1 tablet (88 mcg total) by mouth in the morning. 5 Active mirtazapine (REMERON) 7.5 MG tablet 1 tablet (7.5 mg total) by PO/Per Tube route nightly. 5 Active multivitamin w/ minerals (THERA M PLUS) Tab/Cap tablet Take 1 each (1 tablet total) by mouth in the morning. 5 Active ondansetron ODT (ZOFRAN-ODT) 4 MG disintegrating tablet 1 tablet (4 mg total) by PO/Per Tube route every 6 (six) hours as needed for nausea or vomiting. 5 Active pantoprazole (PROTONIX) 40 MG EC/DR tablet Take 1 tablet (40 mg total) by mouth in the morning and 1 tablet (40 mg total) before bedtime. 5 Active prochlorperazine (COMPAZINE) 5 MG tabletIndications: Nausea and Vomiting 1 tablet (5 mg total) by PO/Per Tube route every 6 (six) hours as needed for nausea or vomiting Indications: Nausea and Vomiting. 5 Active zinc sulfate (ZINCATE) 220 (50 Zn) MG capsule Take 1 capsule (220 mg total) by mouth in the morning. 5 Active Active Problems Problem Noted Date Diagnosed Date Wound 03/27/2024 Encounters Date Type Department Care Team Description 03/27/2024 2:20 PM SPECIMEN TRANSPORTER - 05/10/2024 8:58 PM SPECIMEN TRANSPORTER Hospital Encounter [facility] [place] [address] [place] [address] Kacie Naylor MD Discharge Disposition: Intermediate Facility (SNF) from Last 3 Months Immunizations Immunization Administration Dates Next Due Influenza Split High Dose Pr eservative Free IM 01/24/2020,01/24/2020 Influenza TIV (IM) 01/31/2021,03/19/2014 Influenza, Quadrivalent 01/24/2020,05/30/2015 Influenza, Unspecified 01/24/2020,01/24/2020, Pneumococcal Conjugate 01/01/2018 Pneumococcal Conjugate 13-Valent 04/22/2018 Family History Medical History Relation Name Comments Heart disease Father Heart disease Mother Relation Name Status Comments Father Mother Social History Tobacco Use Types Packs/Day Years Used Date Smoking Tobacco: Never Smokeless Tobacco: Never Tobacco Cessation:Counseling Given: Not Answered Alcohol Use Standard Drinks/Week Comments Never 0 (1 standard drink = 0.6 oz pur e alcohol) Routezillaities Answer Date Recorded In the past 12 months has [employer], gas, oil, or water [employer] threatened to shut off services in your home? No 03/28/2024 Social Connection and Isolation Panel [NHANES] A nswer Date Recorded In a typical week, how many times do you talk on the phone with family, friends, or neighbors? Twice a week 03/28/20 How often do you get togethe r with friends or relatives? Twice a week 03/28/2024 How often do you attend chur or moravian services? 1 to 4 times per year 03/28/2024 Do you belong to any clubs o r organizations such as anabaptist groups, unions, fraternal or athletic groups, or school groups? No 03/28/2024 How often do you attend meet ings of the clubs or organizations you belong to? 1 to 4 times per year 03/28/2024 Are you , , di vorced, , never , or living with a partner? 03/28/2024 AUDIT-C Answer Date Recorded Q1: How often do you have a drink containing alcohol? Never 03/27/2024 Q2: How many drinks containi ng alcohol do you have on a typical day when you are drinking? Patient does not drink Q3: How often do you have si x or more drinks on one occasion? Never 03/27/2024 Overall Financial Resource Strain (CARDIA) Answe r Date Recorded How hard is it for you to pa y for the very basics like food, housing, medical care, and heating? Not hard at all 03/28/2024 [facility] Occupational Stress Questionnaire Answer Date Recorded Do you feel stress - tense, restless, nervous, or anxious, or unable to sleep at night because your mind is troubled all the time - these days? Not at all 05/10/2024 Hunger Vital Sign Answer Date Recorded Within the past 12 months, y ou worried that your food would run out before you got the money to buy more. Never true 03/28/20 24 Within the past 12 months, t he food you bought just didn't last and you didn't have money to get more. Never true 03/28/2024 Housing Stability Vital Sign Answer Sunil e Recorded In the last 12 months, was t here a time when you were not able to pay the mortgage or rent on time? No 03/28/2024 In the past 12 months, how m any times have you moved where you were living? 0 03/28/2024 At any time in the past 12 m [facility], were you homeless or living in a fdc (including now)? No 03/28/2024 Domestic Abuse Assessment Answer Date R ecorded Do you feel safe in your relationships at home? Yes 03/27/2024 Physical Abuse Denies 03/27/2024 HRSN Domestic Abuse - Type of Abuse Not on file 03/27/2024 HRSN Domestic Abuse - Time Frame Not on file 03/27/2024 HRSN Domestic Abuse - Signs and Symptoms Not on file 03/27/2024 Verbal Abuse Denies 03/27/2024 HRSN Domestic Abuse - Reported To Not on file 03/27/2024 SDSC Transportation Source Answer Da te Recorded Has lack of transportation k ept you from medical appointments or from getting medications? No 04/27/2024 Has lack of transportation k ept you from meetings, work, or from getting things needed for daily living? No 04/27/2024 HRSN Depression PHQ-2 Answer Date Recor ded Feeling down, depressed, or hopeless 0 05/10/2024 Little interest or pleasure in doing things 0 05/10/2024 Comments Unknown Sex and Gender Information Value Date Recorded Sex Assigned at Not on file Legal Sex Female 3:53 PM EST Gender Identity Not on file Sexual Orientation Not on file Last Filed Vital Signs Vital Sign Reading Time Taken Comments Blood Pressure 140/86 05/10/2024 8:00 PM SPECIMEN TRANSPORTER Pulse 85 05/10/2024 8:00 PM SPECIMEN TRANSPORTER Temperature 35.9 C (96.6 F) 05/10/2024 8:00 PM SPECIMEN TRANSPORTER Respiratory Rate 18 05/10/2024 8:00 PM SPECIMEN TRANSPORTER Oxygen Saturation 97% 05/10/2024 7:50 AM SPECIMEN TRANSPORTER Inhaled Oxygen Concentration - - Weight 90 kg (198 lb 6.6 oz) 05/10/2024 4:51 PM SPECIMEN TRANSPORTER Height 162.6 cm (5' 4 ) 04/04/2024 1:43 PM SPECIMEN TRANSPORTER Body Mass Index 34.06 04/04/2024 1:43 PM SPECIMEN TRANSPORTER Plan of Treatment Not on file Procedures Procedure Name Priority Date/Time Associated Diagnosis Comments COMPREHENSIVE METABOLIC PANEL Routine 05/08/2024 4:40 AM SPECIMEN TRANSPORTER WOUND DEBRIDEMENT Routine 05/05/2024 10: 48 AM SPECIMEN TRANSPORTER COMPREHENSIVE METABOLIC PANEL Routine 05/04/2024 6:28 AM SPECIMEN TRANSPORTER CREATININE - PHARM Routine 05/04/2024 from Last 3 Months Results * Comprehensive metabolic panel (05/08/2024 4:40 AM SPECIMEN TRANSPORTER) Only the most recent of2 resultswithin the time period is included. Blood (Blood, Venous) 05/08/2024 4:40 AM SPECIMEN TRANSPORTER us Petra Griffith VALVE INSPECTOR LAB BLOOD ORDERABLES Edited Re jaxon - Final SM ONBASE * Wound debridement (05/05/2024 10:48 AM SPECIMEN TRANSPORTER) Narrative Saad Oseguera MD - 05/05/2024 10:48 AM SPECIMEN TRANSPORTER Saad Oseguera MD 05/05/2024 10:52 AM WOUND DEBRIDEMENT Wound location: abdomen . Debridement indication: necrotis tissue and slough Pre-procedure verification/TIME OUT: The proposed risks versus benefits of this procedure were discussed in detail with patient. patient verbalizes understanding and elects to proceed with this procedure. Relevant documentation was reviewed prior to procedure including signed consent form. All necessary equipment for procedure is available at time of procedure yes. An audible time out was done at 1045AM by saad oseguera, correctly identifying patients name, medical record number, correct side, correct site, and correct procedure to be performed with Registered Nurse members of the procedure team all in agreement. Procedure: Site marked before the procedure: No Character of Wound Pre-Debridment: Improved Type and Level of Debridement: Excisional: Excisional Debridement: Defined as the surgical removal or cutting away of devitalized tissue, necrosis, or slough; includes definite cutting away of tissue. Down to and including fascia Instruments Used: Curette, Scissors, and Scalpel Estimated Blood Loss: none Post Debridement Findings: Measurements (cm): 13cm X 3cm X 3.5cm Percentage of Wound Debrided: 75% Character of Wound Post Debridement: Improved Bleeding Controlled with N/A Dressings Applied: NPWT Biologics: Not Applicable Condition of the Wound: Improved. Procedure Location: Performed: Bedside Wound looks like it is improving has healthy granular tissue along edges for most part I did some slough tissue along the edges rid of some necrotic tissue around base sutures are still I think it is looking good we will continue wound VAC therapy.. Of note patient is able to walk around the facility with a wound VAC intact wound VAC is easy to maintain and I think that if a skilled facility has a support team assoc that can handle placing the VAC she would be able to tolerate physical and occupational therapy with the wound SAAD OSGEUERA MD 05/05/24 10:48 AM SPECIMEN TRANSPORTER Saad Oseguera MD OUTSIDE PROCEDURE Final Resul t * Creatinine, body fluid (05/04/2024) Serum Creatinine 1.54 Body Fluid Historical Provider LAB BODY FLUIDS AND STOOL S ORDERABLES Final Result from Last 3 Months Advance Directives * Full Resuscitation (Latest Code Status on File) Date Activated Date Inactivated Comments 03/27/2024 5:08 PM 05/11/2024 12:11 AM Question Answer Comments I have discussed this order with the patient or his/her surrogate and have received informed consent. Yes RN verify
--- OUTSIDE RECORDS SUMMARY | 2024-08-01 15:41 | XMS_ITS | Clinical Summary ---
Author Organization [facility] Address Formerly [facility] [place] [address] Care Team Providers Care Application Programmer Analyst Name Role Phone Unavailable Primary Care Provider Unavailabl e Encounters Date Type Department Care Team Description 05/19/2024 2:20 PM RESEARCH STATISTICIAN - 05/19/2024 11:59 PM RESEARCH STATISTICIAN Hospital Encounter [facility] [address] [place] [address] Ricardo Simons DO Discharge Disposition: Home or Self Care (Routine Discharge) 05/19/2024 Orders Only [facility] [address] [place] [address] Ricardo Simons DO 05/18/2024 1:54 PM RESEARCH STATISTICIAN - 05/18/2024 11:59 PM RESEARCH STATISTICIAN Hospital Encounter [facility] [address] [place] [address] Ricardo Smions DO Discharge Disposition: Home or Self Care (Routine Discharge) 05/18/2024 Orders Only [facility] [address] [place] [address] Ricardo Simons DO 05/16/2024 11:19 AM RESEARCH STATISTICIAN - 05/16/2024 11:59 PM RESEARCH STATISTICIAN Hospital Encounter [facility] [address] [place] [address] Rciardo Simons DO Discharge Disposition: Home or Self Care (Routine Discharge) 05/16/2024 Orders Only [facility] [address] [place] [address] Ricardo Simons DO from Last 3 Months Social History Tobacco Use Types Packs/Day Years Used Date Smoking Tobacco: Never Assessed Comments Unknown Sex and Gender Information Value Date Recorded Sex Assigned at Female 05/16/2024 11:18 AM RESEARCH STATISTICIAN Legal Sex Female 11:13 AM RESEARCH STATISTICIAN Gender Identity Not on file Sexual Orientation Not on file Plan of Treatment Health Maintenance Due Date Last Done Comments DTaP, Tdap and Td Vaccines ( 1 - Tdap) 01/22/1960 Zoster Vaccines (1 of 2) 1991 Annual Medicare Wellness Visit 2006 Dexa Scan (General) 2006 Pneumococcal Vaccine: 65+ Ye ars (1 of 1 - PCV) 2006 RSV Immunization or 60+ Years (1 - 1-dose 75+ series) 01/22/2016 COVID-19 Vaccine ( - 2023-2 5 season) 2024 Meningococcal B Vaccine Aged Out No l onger eligible based on patient's age to complete this topic Meningococcal Vaccine Aged Out No torie sudhir eligible based on patient's age to complete this topic RSV Immunizations Under 20 Months Aged Out No longer eligible based on patient's age to complete this topic Procedures Procedure Name Priority Date/Time Associated Diagnosis Comments COMPREHENSIVE METABOLIC PANEL Routine 05/19/2024 12:45 PM RESEARCH STATISTICIAN Encounter for surgical aftercare following surgery of digestive system Acute peritonitis (CMS/HCC HHS/HCC) Colon cancer ([facility]/HCC HHS/HCC) Anemia Acute kidney failure, unspecified VITAMIN B12 / FOLATE Routine 05/19/2024 12:45 PM RESEARCH STATISTICIAN Encounter for surgical aftercare following surgery of digestive system Acute peritonitis (CMS/HCC HHS/HCC) Colon cancer (CMS/HCC HHS/HCC) Anemia Acute kidney failure, unspecified FERRITIN Routine 05/19/2024 12:45 PM RESEARCH STATISTICIAN Encounter for surgical aftercare following surgery of digestive system Acute peritonitis (CMS/HCC HHS/HCC) Colon cancer (CMS/HCC HHS/HCC) Anemia Acute kidney failure, unspecified IRON SAT PANEL (IRON,IBC,%SAT) Routine 05/19/2024 12:45 PM RESEARCH STATISTICIAN Encounter for surgical aftercare following surgery of digestive system Acute peritonitis (CMS/HCC HHS/HCC) Colon cancer (CMS/HCC HHS/HCC) Anemia Acute kidney failure, unspecified PROTHROMBIN TIME, VENOUS Routine 05/19/2024 12:45 PM RESEARCH STATISTICIAN Encounter for surgical aftercare following surgery of digestive system Acute peritonitis (CMS/HCC HHS/HCC) Colon cancer (CMS/HCC HHS/HCC) Anemia Acute kidney failure, unspecified CBC W/DIFF AUTOMATED Routine 05/19/2024 12:45 PM RESEARCH STATISTICIAN Encounter for surgical aftercare following surgery of digestive system Acute peritonitis (CMS/HCC HHS/HCC) Colon cancer (CMS/HCC HHS/HCC) Anemia Acute kidney failure, unspecified TRANSFERRIN Routine 05/19/2024 12:45 PM RESEARCH STATISTICIAN Encounter for surgical aftercare following surgery of digestive system Acute peritonitis (CMS/HCC HHS/HCC) Colon cancer (CMS/HCC HHS/HCC) Anemia Acute kidney failure, unspecified RETICULOCYTE CT, AUTO Routine 05/19/2024 12:45 PM RESEARCH STATISTICIAN Encounter for surgical aftercare following surgery of digestive system Acute peritonitis (CMS/HCC HHS/HCC) Colon cancer (CMS/HCC HHS/HCC) Anemia Acute kidney failure, unspecified COMPREHENSIVE METABOLIC PANEL Routine 05/18/2024 10:50 AM RESEARCH STATISTICIAN DVT (deep venous thrombosis) (CMS/HCC HHS/HCC) VITAMIN D, 25 OH Routine 05/18/2024 10:5 0 AM RESEARCH STATISTICIAN DVT (deep venous thrombosis) (CMS/HCC HHS/HCC) Unspecified severe protein-calorie malnutrition (HHS/HCC) MAGNESIUM Routine 05/18/2024 10:50 AM RESEARCH STATISTICIAN DVT (deep venous thrombosis) (CMS/HCC HHS/HCC) CBC W/DIFF AUTOMATED Routine 05/18/2024 10:50 AM RESEARCH STATISTICIAN DVT (deep venous thrombosis) (CMS/HCC HHS/HCC) PROTHROMBIN TIME, VENOUS Routine 05/18/2024 10:50 AM RESEARCH STATISTICIAN DVT (deep venous thrombosis) (CMS/HCC HHS/HCC) COMPREHENSIVE METABOLIC PANEL Routine 05/16/2024 8:00 AM RESEARCH STATISTICIAN HTN (hypertension) Anemia, unspecified Vitamin D deficiency Severe malnutrition (HHS/HCC) Peritoneal abscess (CMS/HCC HHS/HCC) Acute kidney failure, unspecified VITAMIN D, 25 OH Routine 05/16/2024 8:00 AM RESEARCH STATISTICIAN HTN (hypertension) Anemia, unspecified Vitamin D deficiency Severe malnutrition (HHS/HCC) Peritoneal abscess (CMS/HCC HHS/HCC) Acute kidney failure, unspecified CBC W/DIFF AUTOMATED Routine 05/16/2024 8:00 AM RESEARCH STATISTICIAN HTN (hypertension) Anemia, unspecified Vitamin D deficiency Severe malnutrition (HHS/HCC) Peritoneal abscess (CMS/HCC HHS/HCC) Acute kidney failure, unspecified HEMOGLOBIN, GLYCOSYLATED Routine 05/16/2024 8:00 AM RESEARCH STATISTICIAN HTN (hypertension) Anemia, unspecified Vitamin D deficiency Severe malnutrition (HHS/HCC) Peritoneal abscess (CMS/HCC HHS/HCC) Acute kidney failure, unspecified THYROID STIM HORMONE TSH Routine 05/16/2024 8:00 AM RESEARCH STATISTICIAN HTN (hypertension) Anemia, unspecified Vitamin D deficiency Severe malnutrition (HHS/HCC) Peritoneal abscess (CMS/HCC HHS/HCC) Acute kidney failure, unspecified THYROXINE, FREE (FT4) Routine 05/16/2024 8:00 AM RESEARCH STATISTICIAN HTN (hypertension) Anemia, unspecified Vitamin D deficiency Severe malnutrition (HHS/HCC) Peritoneal abscess (CMS/HCC HHS/HCC) Acute kidney failure, unspecified PROTHROMBIN TIME, VENOUS Routine 05/16/2024 8:00 AM RESEARCH STATISTICIAN HTN (hypertension) Anemia, unspecified Vitamin D deficiency Severe malnutrition (HHS/HCC) Peritoneal abscess (CMS/HCC HHS/HCC) Acute kidney failure, unspecified from Last 3 Months Results * VITAMIN B12 / FOLATE (05/19/2024 12:45 PM RESEARCH STATISTICIAN) VITAMIN B12 S/P/B 372 193 - 986 PG/ML 05/19/2024 3:44 PM RESEARCH STATISTICIAN [facility] FOLATE 14.5 8.6 - 58.9 NG/ML 05/19/2024 3:44 PM RESEARCH STATISTICIAN [facility] 05/19/2024 12:4 5 PM RESEARCH STATISTICIAN us Ricardo Simons DO LABORATORY Final Result Performing Organization Address [facility] Co de Phone Number [facility] [address] [place] [address], [place] [phone] * (ABNORMAL) IRON SAT PANEL (IRON,IBC,%SAT) (05/19/2024 12:45 PM RESEARCH STATISTICIAN) IRON 18(L) 50 - 170 MCG/DL 05/19/2024 3:16 PM RESEARCH STATISTICIAN [facility] IRON BINDING CAPACITY 280 250 - 450 MCG/DL 05/19/2024 3:16 PM RESEARCH STATISTICIAN [facility] IRON SATURATION 6(L) 20 - 55 % 3:16 PM RESEARCH STATISTICIAN [facility] 05/19/2024 12:4 5 PM RESEARCH STATISTICIAN us Ricardo Simons DO LABORATORY Final Result Performing Organization Address [facility] Co de Phone Number [facility] [address] [place] [address], [place] [phone] * TRANSFERRIN (05/19/2024 12:45 PM RESEARCH STATISTICIAN) TRANSFERRIN 206 200 - 360 mg/dL 05/19/2024 3:59 PM RESEARCH STATISTICIAN [facility] 05/19/2024 12:4 5 PM RESEARCH STATISTICIAN us Ricardo Simons DO LABORATORY Final Result Performing Organization Address [facility] Co de Phone Number [facility] [address] [place] [address], [place] [phone] * (ABNORMAL) RETICULOCYTE CT, AUTO (05/19/2024 12:45 PM RESEARCH STATISTICIAN) Pathologist [facility] [place] RETICULOCYTE COUNT 1.8(H) 0.5 - 1.5 % 05/19/2024 3:24 PM RESEARCH STATISTICIAN [facility] 05/19/2024 12:4 5 PM RESEARCH STATISTICIAN us Ricardo Simons DO LABORATORY Final Result Performing Organization Address [facility] de Phone Number [facility] [address] [place] [address], [place] [phone] * (ABNORMAL) PROTIME/INR, VENOUS (05/19/2024 12:45 PM RESEARCH STATISTICIAN) Only the most recent of3 resultswithin the time period is included. Pathologist [facility] [place] PROTIME 16.5(H) 9.1 - 12.4 SEC 05/19/2024 3:07 PM RESEARCH STATISTICIAN [facility] INR 1.4 05/19/2024 3:07 PM RESEARCH STATISTICIAN [facility] Comment: Recommend INR ranges for Oral Anticoagulant Therapy: Mechanical Cardiac Values 2.5-3.5 All others indication 2.0-3.0 05/19/2024 12:4 5 PM RESEARCH STATISTICIAN us Ricardo Simons DO LABORATORY Final Result Performing Organization Address [facility] Co de Phone Number [facility] [address] [place] [address], [place] [phone] * (ABNORMAL) COMPREHENSIVE METABOLIC PANEL (05/19/2024 12:45 PM RESEARCH STATISTICIAN) Only the most recent of3 resultswithin the time period is included. GLUCOSE 117(H) 70 - 99 MG/DL 05/19/2024 3:59 PM RESEARCH STATISTICIAN [facility] BUN 17 7 - 18 MG/DL 05/19/2024 3:59 PM [facility] CREATININE S/P/B 1.30(H) 0.55 - 1.02 MG/DL 05/19/2024 3:59 PM [facility] SODIUM S/P/B 141 136 - 145 MMOL/L 05/19/2024 3:59 PM [facility] POTASSIUM S/P/B 4.0 3.5 - 5.1 MMOL/L 05/19/2024 3:59 PM [facility] CHLORIDE S/P/B 108 100 - 108 MMOL/L 05/19/2024 3:59 PM [facility] CO2 23.3 21 - 32 MMOL/L 05/19/2024 3:59 PM [facility] CALCIUM S/P/B 9.0 8.5 - 10.1 MG/DL 05/19/2024 3:59 PM [facility] BILIRUBIN TOTAL S/P/B 0.3 0.2 - 1.2 MG/DL 05/19/2024 3:59 PM [facility] TOTAL PROTEIN S/P/B 6.9 6.4 - 8.2 G/DL 05/19/2024 3:59 PM [facility] ALBUMIN S/P/B 2.5(L) 3.4 - 5.0 G/DL 05/19/2024 3:59 PM [facility] AST 17 15 - 37 U/L 05/19/2024 3:59 PM [facility] ALT 20 14 - 55 U/L 05/19/2024 3:59 PM [facility] ALKALINE PHOSPHATASE S/P/B 121 50 - 136 U/L 05/19/2024 3:59 PM [facility] ANION GAP 9.7 5 - 15 MMOL/L 05/19/2024 3:59 PM RESEARCH STATISTICIAN [facility] BUN CREATININE RATIO 13.1 6 - 26 05/19/2024 3:59 PM [facility] A/G RATIO 0.6(L) 1.0 - 2.0 RATIO 05/19/2024 3:59 PM [facility] GFR ESTIMATE 41(L) >90 ML/MIN/1.7 3 M2 05/19/2024 3:59 PM [facility] Comment: NOTE: eGFR is not calculated for patients <18 years of age or gender unknown. This is an estimated GFR calculation using the new CKD EPI creatinine equation without race and so does not require a correction factor for race. This estimated GFR should not be used for calculating drug doses. 05/19/2024 12:4 5 PM RESEARCH STATISTICIAN Ricardo Simons DO LABORATORY Final Result [facility] [address] [place] [address], [place] [phone] * (ABNORMAL) CBC W/DIFF AUTOMATED (05/19/2024 12:45 PM RESEARCH STATISTICIAN) Only the most recent of3 resultswithin the time period is included. WBC 7.17 4.4 - 11.0 x10'3/uL 05/19/2024 3:24 PM [facility] RBC 3.12(L) 4.50 - 5.10 x10'6/uL 05/19/2024 3:24 PM [facility] HGB 7.6(L) 12.3 - 15.3 G/DL 05/19/2024 3:24 PM [facility] HCT 25.2(L) 35.9 - 44.6 % 05/19/2024 3:24 PM [facility] MCV 80.8 80.0 - 96.0 FL 05/19/2024 3:24 PM [facility] MCH 24.4(L) 25.3 - 30.9 PG 05/19/2024 3:24 PM [facility] MCHC 30.2(L) 31.0 - 34.1 G/DL 05/19/2024 3:24 PM [facility] RDW 17.9(H) 12.4 - 15.1 % 05/19/2024 3:24 PM [facility] PLT 447(H) 151 - 353 x10'3/uL 05/19/2024 3:24 PM [facility] MPV 9.3(L) 9.6 - 12.0 FL 05/19/2024 3:24 PM [facility] RBC MORPHOLOGY NORMAL 05/19/2024 3:24 PM [facility] PLT MORPH. NORMAL 05/19/2024 3:24 PM [facility] WBC MORPHOLOGY NORMAL 05/19/2024 3:24 PM [facility] LYMPHOCYTES % 20.1 15.8 - 45.0 % 05/19/2024 3:24 PM [facility] NEUTROPHILS % 64.8 42.1 - 71.9 % 05/19/2024 3:24 PM [facility] MONOCYTES % 7.7 5.7 - 12.5 % 05/19/2024 3:24 PM [facility] EOSINOPHILS 6.3(H) 0.0 - 5.6 % 05/19/2024 3:24 PM [facility] BASOPHILS 0.7 0.0 - 1.3 % 05/19/2024 3:24 PM [facility] ABS. NEUTROPHILS 4.65 1.40 - 6.00 x10'3/uL 05/19/2024 3:24 PM RESEARCH STATISTICIAN [facility] IMMATURE GRANS % 0.4 0.0 - 0.5 % 05/19/2024 3:24 PM RESEARCH STATISTICIAN [facility] ABS. LYMPHOCYTES 1.44 0.80 - 4.70 x10'3/uL 05/19/2024 3:24 PM RESEARCH STATISTICIAN [facility] 05/19/2024 12:4 5 PM RESEARCH STATISTICIAN us Ricardo Simons DO LABORATORY Final Result Performing Organization Address [facility] Co de Phone Number [facility] [address] [place] [address], [place] [phone] * FERRITIN (05/19/2024 12:45 PM RESEARCH STATISTICIAN) FERRITIN 37.0 8.0 - 388.0 NG/ML 05/19/2024 3:59 PM RESEARCH STATISTICIAN [facility] 05/19/2024 12:4 5 PM RESEARCH STATISTICIAN us Ricardo Simons DO LABORATORY Final Result Performing Organization Address [facility] de Phone Number [facility] [address] [place] [address], [place] [phone] * VITAMIN D, 25 OH (05/18/2024 10:50 AM RESEARCH STATISTICIAN) Only the most recent of2 resultswithin the time period is included. VITAMIN D 25 HYDROXY S/P/B 33 30 - 100 NG/ML 05/18/2024 3:53 PM RESEARCH STATISTICIAN [facility] Comment: INTERPRETATION DEFICIENT <20 INSUFFICIENT 20-29 SUFFICIENT 30-100 05/18/2024 10:5 0 AM RESEARCH STATISTICIAN us Ricardo Simons DO LABORATORY Final Result [facility] [address] [place] [address], [place] [phone] * (ABNORMAL) MAGNESIUM (05/18/2024 10:50 AM RESEARCH STATISTICIAN) MAGNESIUM 1.5(L) 1.8 - 2.4 MG/DL 05/18/2024 3:35 PM RESEARCH STATISTICIAN [facility] 05/18/2024 10:5 0 AM RESEARCH STATISTICIAN us Ricardo Simons DO LABORATORY Final Result Performing Organization Address [facility] Co de Phone Number [facility] [address] [place] [address], [place] [phone] * HEMOGLOBIN, GLYCOSYLATED (05/16/2024 8:00 AM RESEARCH STATISTICIAN) HGB A1C 5.3 <5.7 % 05/16/2024 1:22 PM RESEARCH STATISTICIAN [facility] Comment: INCREASED RISK OF DIABETES <5.7% NON-DIABETES 5.7-6.4% INCREASED RISK FOR FUTURE DIABETES > OR = 6.5 CONSISTENT WITH DIABETES STANDARDS OF MEDICAL CARE IN DIABETES-2010 DIABETES CARE, 33(SUPP 1): S1-S61,2009 ESTIMATED AVG GLUCOSE 105 mg/dL 05/16/2024 1:22 PM [facility] 05/16/2024 8:00 AM RESEARCH STATISTICIAN us Ricardo Simons DO LABORATORY Final Result Performing Organization Address [facility] Co de Phone Number [facility] [address] [place] [address], [place] [phone] * THYROXINE, FREE (FT4) (05/16/2024 8:00 AM RESEARCH STATISTICIAN) FREE T4 1.05 0.76 - 1.46 NG/DL 05/16/2024 1:07 PM RESEARCH STATISTICIAN [facility] 05/16/2024 8:00 AM RESEARCH STATISTICIAN us Ricardo Simons DO LABORATORY Final Result Performing Organization Address [facility] Co de Phone Number [facility] [address] [place] [address], [place] [phone] * THYROID STIM HORMONE TSH (05/16/2024 8:00 AM RESEARCH STATISTICIAN) TSH 1.668 0.358 - 3.74 uIU/ML 05/16/2024 1:07 PM RESEARCH STATISTICIAN [facility] Comment: HIGH DOSES OF BIOTIN MAY INTERFERE WITH THIS TEST RESULT. CORRELATION TO CLINICAL HISTORY AND PRESENTATION RECOMMENDED. 05/16/2024 8:00 AM RESEARCH STATISTICIAN us Ricardo Simons DO LABORATORY Final Result Performing Organization Address [facility] Co de Phone Number [facility] [address] [place] [address], [place] [phone] from Last 3 Months Insurance [employer]
--- OUTSIDE RECORDS SUMMARY | 2024-08-01 15:41 | XMS_ITS ---
Author Organization [facility] Address [address] [place] [address] Care Team Providers Care Peoplesoft Analyst Name Role Phone Reuben Carlton MD Primary Care Provider [phone] Active Problems Problem Noted Date Diagnosed Date Bacterial peritonitis 03/22/2024 Wound infection 03/22/2024 Anorexia 03/17/2024 Cancer related pain 03/17/2024 Physical debility 03/17/2024 Nausea 03/17/2024 Palliative care by specialist 03/17/2024 Advance care planning 03/17/2024 Hypertensive urgency 03/14/2024 Severe sepsis with septic shock 03/10/2024 Protein-calorie malnutrition, severe 03/10/2024 HAKEEM (acute kidney injury) 03/10/2024 Rectal cancer 03/10/2024 Hypotension due to hypovolemia 03/09/2024 Current Treatment and Therapy Plans No current plan information found. Past Treatment and Therapy Plans No past plan information found. Lifetime Dose Tracking * Chemical Lifetime Dose Automatic Entry Manual Entr y Effective Dose 44.71 mSv 44.71 mSv 0 mSv Total DLP 2,846.98 DLP 2,846.98 DLP 0 DLP CTDIvol Max 53.65 mGy 53.65 mGy 0 mGy CTDIvol Min 14.06 mGy 14.06 mGy 0 mGy
--- OUTSIDE RECORDS SUMMARY | 2024-08-01 15:41 | XMS_ITS | Clinical Summary ---
Author Organization [facility] Address [address] [place] [address] Care Team Providers Care Wheel And Pinion Inspector Name Role Phone Navjot Diggs MD Unavailable [phone] Librado Liu MD Primary Care Provider [phone] Yamilet Tyler MD Unavailable [phone] [facility],non-owned Affiliates and Associated Physician Practices is amultiple site organization consisting of ambulatory clinics and hospital sitesin [place], [place], [place] and [place]. This disclosure is being madepursuant to the Care Everywhere program and may not contain all information available regarding this patient. Last updated 18.[facility] Allergies Active Allergy Reactions Criticality Noted Date Comments Metronidazole Other 01/09/2020 Morphine Other 01/09/2020 Medications * Be aware that medications may not be up to date on this document. Alwaysverify current medications with the patient. Medication Sig Dispensed Refills Start Date End Date Status amLODIPine (NORVASC) 10 MG tablet Take 10 mg by mouth once daily 04/14/2020 Active carvedilol (COREG) 25 MG tablet Take 25 mg by mouth every 12 hours 04/14/2020 Active Cholecalciferol 50 MCG (1999 UT) Take 2,000 Units by mouth Active DULoxetine (CYMBALTA) 60 MG capsule Take 60 mg by mouth once daily 12/05/2020 Active hydrALAZINE (APRESOLINE) 100 MG tablet Take 100 mg by mouth 3 times daily 12/04/2020 Active hydrOXYzine hcl (ATARAX) 10 MG tablet Take 10 mg by mouth at bedtime 12/12/2020 Active levothyroxine (SYNTHROID) 75 MCG tablet Take 75 mcg by mouth once daily 12/12/2020 Active losartan (COZAAR) 100 MG tablet Take 100 mg by mouth once daily 04/20/2020 Active pantoprazole EC (PROTONIX) 40 MG tablet 12/16/2020 Active pravastatin (PRAVACHOL) 40 MG tablet Take 40 mg by mouth once daily 04/14/2020 Active spironolactone (ALDACTONE) 25 MG tablet TAKE 1 TABLET BY MOUTH 1 (ONE) TIME EACH DAY 12/06/2020 Active erythromycin (ROMYCIN) 5 MG/GM ophthalmic ointment Apply thin ribbon to incisions four times a day as well as into the right eye at bedtime. 3.5 g 3 12/23/2020 Active Active Problems Problem Noted Date Diagnosed Date Closed fracture of right orbit 12/23/2020 Essential hypertension 01/09/2020 Gastroesophageal reflux disease 01/09/2020 Other and unspecified hyperlipidemia 01/09/2020 Immunizations Name Administration Dates Next Due INFLUENZA VACCINE, TRIV. (AF LURIA, FLUZONE TRIVALENT; 6MO+) (IIV3) 03/19/2014 FLU, HISTORIC VACCINE 01/24/2020 INFLUENZA VACCINE 04/22/2018 INFLUENZA VACCINE, HIGH-DOSE , QUADR. (FLUZONE HIGH-DOSE QUADRIVALENT; 65Y+), 0.7 ML (HD-IIV4) 01/24/2020 INFLUENZA VACCINE, QUADR. (F LUZONE; FLULAVAL; FLUARIX; AFLURIA QUADRIVALENT; 6MO+), 0.5 ML (IIV4) 05/30/2015 PNEUMOCOCCAL PCV7 CONJ, PEDS 01/01/2018 Pneumococcal Pcv13 Conj 04/22/2018 Social History Tobacco Use Types Packs/Day Years Used Date Smoking Tobacco: Never Smokeless Tobacco: Never Alcohol Use Standard Drinks/Week Comments Never 0 (1 standard drink = 0.6 oz pur e alcohol) Sex and Gender Information Value Date Recorded Sex Assigned at Not on file Gender Identity Not on file Sexual Orientation Not on file Last Filed Vital Signs Vital Sign Reading Time Taken Comments Blood Pressure 157/71 12/23/2020 5:30 PM CDT Pulse 71 12/23/2020 5:30 PM CDT Temperature 36.2 C (97.1 F) 12/23/2020 4:10 PM CDT Respiratory Rate 10 12/23/2020 5:30 PM CDT Oxygen Saturation 93% 12/23/2020 5:20 PM CDT Inhaled Oxygen Concentration - - Weight 102.6 kg (226 lb 4.8 oz) 021 11:39 AM CDT Height 163.8 cm (5' 4.5 ) 12/19/2020 11 :39 AM CDT Body Mass Index 38.24 12/19/2020 11:39 AM CDT Plan of Treatment Health Maintenance Due Date Last Done Comments BONE DENSITY TESTING 1940 MEDICARE AWV 12 MONTHS 1940 DTAP/TDAP/TD VACCINES (1 - Tdap) 01/22/1960 ZOSTER VACCINE (1 of 2) 1991 Respiratory Syncytial Virus (RSV) Vaccine Pt: or over 60 yrs (1 - 1-dose 75+ series) 01/22/2016 PNEUMOCOCCAL VACCINE 50+ (2 of 2 - PPSV23) 04/22/2019 04/22/2018 COVID-19 VACCINE (3 - season) 2024 07/19/2020, 06/28/2020 INFLUENZA VACCINE (#1) 2024 , 01/24/2020, 04/22/2018, Additional history exists DEPRESSION SCREENING 05/03/2024 MEDICARE AWV CALENDAR YEAR 2024 HEPATITIS B VACCINE Aged Out No longe r eligible based on patient's age to complete this topic HIB VACCINE Aged Out No longer eligi ble based on patient's age to complete this topic HPV VACCINE Aged Out No longer eligi ble based on patient's age to complete this topic MENINGOCOCCAL (Group B) VACCINE SHARED DECISION-MAKING Aged Out No longer eligible based on patient's age to complete this topic MENINGOCOCCAL GROUPS A/C/Y/W VACCINE Aged Out No longer eligible based on patient's age to complete this topic Medical Devices Implanted Type Area Booky Device Identifier Shelf Expiration Date Model / Serial / Lot Plate Preform Contr Edg Seg Orbt Flr Rt Implanted:Qty: 1 on 12/23/2020 by Yamilet Tyler MD at [facility] Right: Orbital Floor Synthes Maxillofacial .811 / / Description:Implant from félix gilman set. Synthes Midface 4mm Screw Implanted:Qty: 2 on 12/23/2020 by Yamilet Tyler MD at [facility] Right: Orbital Floor Synthes Maxillofacial .224 .01 / / Care Teams Wheel And Pinion Inspector Relationship Specialty Start Date End Date Librado Liu MD [address] [place] [address] PCP - General 12/19/20 Navjot Diggs MD Physician Nephrology 12/19/20 Yamilet Tyler MD [address] [place] [address] Physician Ophthalmology 12/22/20
--- OUTSIDE RECORDS SUMMARY | 2024-08-01 15:41 | XMS_ITS | Clinical Summary ---
Author Organization [facility] Address [address] [place] [address] Care Team Providers Care Second Vp Hr Assessment Name Role Phone Reuben Carlton MD Primary Care Provider [phone] Allergies Active Allergy Reactions Criticality Noted Date Comments Metronidazole Nausea and Vomiting Low 01/09/2020 Morphine Nausea and Vomiting Low 01/09/2020 Medications calcium as carbonate (CALTRATE) 1,500 mg (600 mg elemental) Tablet Take 1,500 mg by mouth. Active levothyroxine 75 mcg tablet Take 75 mcg by mouth daily. 2 Active spironolactone (ALDACTONE) 25 mg tablet TAKE 1 TABLET BY MOUTH 1 (ONE) TIME EACH DAY 2 Active CALCIUM CARBONATE-VITAMI N D3 ORAL Take by mouth. Activ e duloxetine HCl (DULOXETINE ORAL) Take 60 mg by mouth daily. Active amlodipine besylate (AMLODIPINE ORAL) Take 10 mg by mouth daily. Active losartan potassium (LOSARTAN ORAL) Take 100 mg by mouth daily. Active pantoprazole sodium (PANTOPRAZOLE ORAL) Take 40 mg by mouth 2 times daily. Active HYDROXYZINE HCL ORAL Take 10 mg by mouth 1 time daily as needed for Other (See Comment) (Itching). Active loperamide HCl (LOPERAMIDE ORAL) Take by mouth. Activ e ferrous sulfate 325 mg (65 mg iron) tablet Take 325 mg by mouth daily. Active carvediloL (COREG) 25 mg tablet Take 2 Tablets (50 mg) by mouth every 12 hours. 4 Active gabapentin (NEURONTIN) 100 mg capsule Take 1 Capsule (100 mg) by mouth every 8 hours. 4 Active hydrALAZINE (APRESOLINE) 100 mg Tablet tablet Take 1 Tablet (100 mg) by mouth every 8 hours. 4 Active mirtazapine (REMERON SolTab) 15 mg Tablet, Rapid Dissolve Take 0.5 Tablets (7.5 mg) by mouth daily at bedtime. 4 Active oxyCODONE (ROXICODONE) 5 mg tabletIndication s:Bacterial peritonitis (CMS/HCC) Take 1 Tablet (5 mg) by mouth every 8 hours as needed for Pain, Severe. Max Daily Amount: 15 mg 4 Active traZODone (DESYREL) 50 mg tablet Take 1 Tablet (50 mg) by mouth nightly as needed for Insomnia (For insomnia refractory to melatonin). 4 Active Eliquis DVT-PE Treat 30D Start 5 mg (74 tabs) Tablets, Dose Pack 1 Tablet 2 times daily. 5 Active amoxicillin-clav ulanate (AUGMENTIN) 875-125 mg tablet Take 1 Tablet by mouth every 8 hours. 5 Active Active Problems Problem Noted Date Diagnosed Date Bacterial peritonitis 03/22/2024 Wound infection 03/22/2024 Anorexia 03/17/2024 Cancer related pain 03/17/2024 Physical debility 03/17/2024 Nausea 03/17/2024 Palliative care by specialist 03/17/2024 Advance care planning 03/17/2024 Hypertensive urgency 03/14/2024 Severe sepsis with septic shock 03/10/2024 Protein-calorie malnutrition, severe 03/10/2024 HAKEEM (acute kidney injury) 03/10/2024 Rectal cancer 03/10/2024 Hypotension due to hypovolemia 03/09/2024 Encounters Date Type Department Care Team Description 07/18/2024 10:02 AM CDT - 07/18/2024 11:59 PM CDT Hospital Encounter [facility] - [facility] [address] [place] [address] TroHammad luo MD Henricks, Leisha L, locomotive mechanic Disposition: Home or Self Care 07/18/2024 Telephone [facility] [place] - [address] [phone] Gabbi Barber, pot puller 07/11/2024 External Device Data STL ABSTRACTION Provider, Abstract 07/11/2024 External Device Data STL ABSTRACTION Provider, Abstract 07/10/2024 Abstract [facility] [id number] [facility] [address] [place] [phone] Fabiana Akers RN 07/08/2024 External Device Data STL ABSTRACTION Provider, Abstract 07/07/2024 External Device Data STL ABSTRACTION Provider, Abstract 07/06/2024 1:15 PM MOPPER Office Visit [facility] [id number] [facility] [address] [place] [phone] Dave Carrillo MD Wound infection (Primary Dx); Rectal cancer (CMS/HCC); Ileostomy status (CMS/HCC) 07/05/2024 12:21 PM MOPPER - 07/05/2024 11:59 PM MOPPER Hospital Encounter [facility] [place] - [address] [phone] Mayte Ellison, Gabbi Neil, locomotive mechanic Disposition: Home or Self Care 06/20/2024 External Device Data STL ABSTRACTION Provider, Abstract 06/20/2024 External Device Data STL ABSTRACTION Provider, Abstract 06/16/2024 9:51 AM MOPPER - 06/16/2024 11:59 PM MOPPER Hospital Encounter [facility] [place] - [address] [phone] Mayte Ellison, Anabel Puente, locomotive mechanic Disposition: Home or Self Care 06/16/2024 Telephone [facility] [place] - [address] [address] Mayte Ellison ANP Needs Orders Written 06/06/2024 External Device Data STL ABSTRACTION Provider, Abstract 05/30/2024 External Device Data STL ABSTRACTION Provider, Abstract 05/25/2024 1:15 PM MOPPER Office Visit [facility] [id number] [place] [address] [place] [phone] Dave Carrillo MD Rectal cancer (CMS/HCC) (Primary Dx); Ileostomy status (CMS/HCC) 05/25/2024 Telephone [facility] [id number] [place] [address] [place] [phone] Dave Carrillo MD ostomy/wound vac care 05/25/2024 Orders Only [facility] [id number] [place] [address] [place] [phone] Dave Carrillo MD Wound infection (Primary Dx) 05/24/2024 External Device Data STL ABSTRACTION Provider, Abstract 05/24/2024 External Device Data STL ABSTRACTION Provider, Abstract 05/16/2024 External Device Data STL ABSTRACTION Provider, Abstract from Last 3 Months Family History Medical History Relation Name Comments No Known Problems Brother No Known Problems Child 1 No Known Problems Child 2 No Known Problems Child 3 Heart Disease Father Heart Disease Mother Colon Cancer Neg Hx Relation Name Status Comments Brother Alive Child 1 Alive Child 2 Alive Child 3 Alive Father Mother Social History Tobacco Use Types Packs/Day Years Used Date Smoking Tobacco: Never Tobacco Cessation:Counseling Given: Not Answered Alcohol Use Standard Drinks/Week Comments Never 0 (1 standard drink = 0.6 oz pur e alcohol) Feeling Safe Answer Date Recorded Are you in a relationship wi th someone who hurts you emotionally and/or physically? No 06/16/2024 Food Insecurity Answer Date Recorded Social/Environmental Concerns No concerns Transportation Needs Answer Date Record ed Social/Environmental Concerns No concerns Housing Stability Answer Date Recorded Social/Environmental Concerns No concerns Utility Needs Answer Date Recorded Social/Environmental Concerns No concerns Comments No Sex and Gender Information Value Date Recorded Sex Assigned at Female 02/16/2024 5:28 PM CDT Legal Sex Female 1:34 PM CDT Gender Identity Female 02/16/2024 5:28 PM CDT Sexual Orientation Not on file Last Filed Vital Signs Vital Sign Reading Time Taken Comments Blood Pressure 154/83 07/18/2024 10:00 AM CDT Pulse 62 07/18/2024 10:00 AM CDT Temperature 36.6 C (97.8 F) 07/18/2024 10:00 AM CDT Respiratory Rate 16 06/16/2024 10:00 AM MOPPER Oxygen Saturation 99% 07/06/2024 1:00 PM MOPPER Inhaled Oxygen Concentration - - Weight 86.9 kg (191 lb 9.6 oz) 07/18/2024 10:00 AM CDT Height 162.6 cm (5' 4 ) 07/06/2024 1:00 PM MOPPER Body Mass Index 32.89 07/06/2024 1:00 PM MOPPER Plan of Treatment Upcoming Encounters Date Type Department Care Team (Late st Contact Info) Description 08/03/2024 10:30 AM CDT Appointment [facility] [address] [place] [phone] [place] [address] [facility] [address] [place], [place] [phone] Narcisa Quan RN 08/10/2024 1:15 PM CDT Office Visit [facility] [id number] [facility] [address] [place] [phone] Dave Carrillo MD [address] [facility] [address] [place] [phone] 08/15/2024 1:00 PM CDT Appointment [facility] [address] [address] [place] [phone] Mayte Ellison, ANP [address] [place] [phone] Narcisa Quan, NOHELIA Health Maintenance Due Date Last Done Comments DTAP/TDAP/TD VACCINES (1 - Tdap) 01/22/1960 ZOSTER VACCINE (1 of 2) 1991 OSTEOPOROSIS SCREENING 2006 RSV VACCINE (60+ or ) (1 - 1-dose 75+ series) 01/22/2016 PNEUMOCOCCAL VACCINE 50+ YEA RS (2 of 2 - PPSV23) 04/22/2019 04/22/2018, 01/01/2018 INFLUENZA VACCINE (#1) 2023 , 01/24/2020, 01/24/2020, Additional history exists Medical Devices Implanted Type Area Tool Engineer Device Identifier Shelf Expiration Date Model / Serial / Lot Barrier Seprafilm 3x5in [id number] - [id number] Implanted:Qty: 1 on 03/08/2024 by Dave Carrillo MD at [facility] Adhesion Barrier N/A: Pelvis [employer] 03/26/2026 [id number] / / [id number] Clip Hemolok Lrg [id number] - [facility] - [id number] Implanted:Qty: 1 on 03/08/2024 by Dave Carrillo MD at [facility] Clip N/A: Pelvis [employer]LE[employer]- [employer] S[employer] 12/19/2028 [id number] / / [id number] Insurance [facility] Advance Directives For more information, please contact: [phone] Documents on File Type Date Recorded Patient Filenet Admin Expl anation Advance Directive Living Will 03/08/2024 12:15 PM Advance Directive Living Will * Full Code (Latest Code Status on File) Date Activated Date Inactivated Comments 03/09/2024 7:22 AM 03/27/2024 5:18 PM * Full Code Date Activated Date Inactivated Comments 03/08/2024 12:01 PM 03/09/2024 7:22 AM * Full Code Date Activated Date Inactivated Comments 02/23/2024 8:24 AM 02/23/2024 2:38 PM Care Teams Second Vp Hr Assessment Relationship Specialty Start Date End Date Reuben Carlton MD [address] [place] [phone] PCP - General Family Practice 01/06/24
--- OUTSIDE RECORDS SUMMARY | 2024-08-01 15:41 | XMS_ITS | Clinical Summary ---
Author Organization [facility] Address [address] [place] [address] Phone Care Team Providers Care Warehouser Name Role Phone Edy Cadena Primary Care Provider [phone] Allergies Active Allergy Reactions Criticality Noted Date Comments Metronidazole 01/09/2020 Morphine 01/09/2020 Medications Medication Sig Dispensed Refills Start Date End Date Status hydrALAZINE (APRESOLINE) 100 MG tablet Take 100 mg by mouth 3 (three) times a day 12/12/2019 Active losartan (COZAAR) 100 MG tablet Take 100 mg by mouth 1 (one) time each day 10/19/2019 Active pravastatin (PRAVACHOL) 40 MG tablet Take 40 mg by mouth 1 (one) time each day 10/16/2019 Active pantoprazole (PROTONIX) 40 MG EC tablet TAKE 1 TABLET BY MOUTH EVERY DAY IN THE MORNING 10/23/2019 Active amLODIPine (NORVASC) 10 MG tablet Take 10 mg by mouth 1 (one) time each day 10/16/2019 Active carvedilol (COREG) 25 MG tablet Take 25 mg by mouth every 12 (twelve) hours 10/16/2019 Active DULoxetine (CYMBALTA) [address] capsule Take by mouth 1 (one) time each day 10/23/2019 Active cholecalciferol (VITAMIN D-3) 50 MCG (1999 UT) capsule Take 2,000 Units by mouth 1 (one) time each day Active levothyroxine (SYNTHROID) 75 MCG tablet Take 75 mcg by mouth 1 (one) time each day 06/09/2021 Active Prolia 60 MG/ML solution prefilled syringe 05/16/2021 Active spironolactone (ALDACTONE) 25 MG tablet TAKE 1 TABLET BY MOUTH 1 (ONE) TIME EACH DAY 30 tablet 11 07/13/2021 Active calcium carbonate 1500 (600 Ca) MG tablet Take 1,500 mg by mouth 2 (two) times a day with meals Active Active Problems Problem Noted Date Diagnosed Date Essential hypertension 01/09/2020 Other and unspecified hyperlipidemia 01/09/2020 Gastroesophageal reflux disease 01/09/2020 Immunizations Name Administration Dates Next Due Fluzone High-Dose 01/24/2020 Influenza TIV (IM) 01/31/2021,03/19/2014 Influenza, Injectable, Quadrivalent, Preservativ e Free 05/30/2015 Influenza, Quadrivalent 01/24/2020 Influenza, Unspecified 01/24/2020,04/22/2018 Pneumococcal Conjugate 01/01/2018 Pneumococcal Conjugate 13-Valent 04/22/2018 Family History Medical History Relation Comments Hypertension Brother Relation Status Comments Brother Social History Tobacco Use Types Packs/Day Years Used Date Smoking Tobacco: Never Smokeless Tobacco: Never Alcohol Use Standard Drinks/Week Comments Not Currently 0 (1 standard drink = 0.6 oz pur e alcohol) AUDIT-C Answer Date Recorded Q1: How often do you have a drink containing alc ohol? Never 01/09/2020 Average Number of Drinks Not on file 020 Frequency of Binge Drinking Not on file 12/2019 Sex and Gender Information Value Date Recorded Sex Assigned at Not on file Gender Identity Not on file Sexual Orientation Not on file Last Filed Vital Signs Vital Sign Reading Time Taken Comments Blood Pressure 124/66 12/15/2021 1:15 PM CDT Pulse 84 12/15/2021 1:15 PM CDT Temperature 36.4 C (97.5 F) 12/15/2021 1:15 PM CDT Respiratory Rate - - Oxygen Saturation - - Inhaled Oxygen Concentration - - Weight 101 kg (223 lb) 12/15/2021 1:15 PM CDT Height 165.1 cm (5' 5 ) 12/15/2021 1:15 PM CDT Body Mass Index 37.11 12/15/2021 1:15 PM CDT Plan of Treatment Health Maintenance Due Date Last Done Comments Pneumococcal PPSV23/PCV13 65 + Years / High and Highest Risk (2 of 4 - PPSV23 or PCV20) 06/17/2018 04/22/2018 Pneumococcal PPSV23/PCV13 65 + Years / Low and Medium Risk (2 of 3 - PPSV23 or PCV20) 04/22/2019 04/22/2018 Influenza Vaccine (#1) 2024 , 01/24/2020, 04/22/2018, Additional history exists Care Teams Warehouser Relationship Specialty Start Date End Date Edy Cadena DO [address] [place] [address] PCP - General Internal Medicine 12/15/21
[2024-08-01 15:57] LABS: Hemoglobin A1C 5.3 % (<5.7)
[2024-08-01 16:13] LABS: Iron 32 ug/dL (37-170)
[2024-08-01 16:23] LABS: Percent Iron Saturation 8 % (20-50)
== END 2024-08-01 14:16 | disposition home or self-care (01) ==
PROVIDERS: PCP Family Medicine; Visit Provider Family Medicine
DX: D64.9 Anemia, unspecified (principal); C19 Malignant neoplasm of rectosigmoid junction; Z79.899 Other long term (current) drug therapy; R13.10 Dysphagia, unspecified; R55 Syncope and collapse; I10 Essential (primary) hypertension; E03.9 Hypothyroidism, unspecified; K52.9 Noninfective gastroenteritis and colitis, unspecified; E66.01 Morbid (severe) obesity due to excess calories; G47.33 Obstructive sleep apnea (adult) (pediatric); R29.6 Repeated falls; E55.9 Vitamin D deficiency, unspecified
CPT/HCPCS: 36415; 80053; 81003; 82607; 83036; 83540; 83550; 83735; 84443; 85027

== ENCOUNTER 2025-01-06 11:29 | Outpatient (CLI) | payer OTHER, SELFPAY ==
[2025-01-06 12:24] LABS: Add Urine Microscopic? YES; Appearance Urine Turbid (Clear); Glucose Urine UA Negative (Negative); Leukocyte Esterase Ur 3+ LEU/UL (Negative); Nitrate Urine Negative (Negative); Non Pathogenic Casts 0-2; Specific Grav Ur 1.019 (1.001-1.035)
== END 2025-01-06 11:30 | disposition home or self-care (01) ==
PROVIDERS: PCP Family Medicine; Visit Provider Family Medicine
DX: N39.0 Urinary tract infection, site not specified (principal)
CPT/HCPCS: 81001; 87077; 87086; 87186

== ENCOUNTER 2025-02-23 13:50 | Outpatient (CLI) | payer OTHER, SELFPAY ==
--- OUTSIDE RECORDS SUMMARY | 2025-02-23 13:54 | XMS_ITS | Clinical Summary ---
Author Organization [facility] Address [address] [place] [address] Phone Care Team Providers Care Tractor Distributor Name Role Phone Edy Cadena Primary Care Provider [phone] Allergies Active Allergy Reactions Criticality Noted Date Comments Metronidazole 01/09/2020 Morphine 01/09/2020 Medications hydrALAZINE (APRESOLINE) 100 MG tablet Take 100 [...] hyperlipidemia 01/09/2020 Gastroesophageal reflux disease 01/09/2020 Immunizations Immunization Administration Dates Next Due Fluzone High-Dose 01/24/2020 [...] of Binge Drinking Not on file 12/2019 Comments Unknown Sex and Gender Information Value Date Recorded Sex Assigned at Not on file Legal Sex Female 10:46 AM MDT Gender Identity Not on file Sexual Orientation [...] 1:15 PM CDT Height 165.1 cm (5' 5) 12/15/2021 1:15 PM CDT Body Mass Index 37.11 12/15/2021 1:15 PM CDT Plan of Treatment Health Maintenance Due Date Last Done Comments Pneumococcal PPSV23/PCV13 65 + Years / Low and Medium Risk (2 of 3 - PCV20 or PCV21) 04/22/2019 04/22/2018 Influenza Vaccine (#1) 2025 1, 01/24/2020, 04/22/2018, Additional history exists Insurance [employer] H[employer] Care Teams Tractor Distributor Relationship Specialty Start Date End Date Edy Cadena DO [address] [place] [address] PCP - General Internal Medicine 12/15/21
--- OUTSIDE RECORDS SUMMARY | 2025-02-23 13:54 | XMS_ITS | Clinical Summary ---
Author Organization [facility] Address [address] [place] [address] Care Team Providers Care Computer Application Developer Name Role Phone Navjot Diggs MD Unavailable [phone] Librdao Liu MD Primary Care Provider [phone] Yamilet Tyler MD Unavailable [phone] Source Comments [facility],non-owned Affiliates and Associated Physician Practices is amultiple site organization consisting of ambulatory clinics and hospital sitesin [place], [place] and [place]. This disclosure is being madepursuant to the Care Everywhere program and may not contain all information available regarding this patient. Last updated 18.[facility] Allergies Active Allergy Reactions Criticality Noted Date Comments Metronidazole Other 01/09/2020 Morphine Other 01/09/2020 Medications * Be aware that medications may not be up to date on this document. Alwaysverify current medications with the patient. amLODIPine (NORVASC) 10 MG tablet Take 10 mg by mouth once daily 0 Active carvedilol (COREG) 25 MG tablet Take 25 mg by mouth every 12 hours 0 Active Cholecalciferol 50 MCG (1999) Take 2,000 Units by mouth Active DULoxetine (CYMBALTA) 60 MG capsule Take 60 mg by mouth once daily 1 Active hydrALAZINE (APRESOLINE) 100 MG tablet Take 100 mg by mouth 3 times daily 1 Active hydrOXYzine hcl (ATARAX) 10 MG tablet Take 10 mg by mouth at bedtime 1 Active levothyroxine (SYNTHROID) 75 MCG tablet Take 75 mcg by mouth once daily 1 Active losartan (COZAAR) 100 MG tablet Take 100 mg by mouth once daily 0 Active pantoprazole EC (PROTONIX) 40 MG tablet 1 Active pravastatin (PRAVACHOL) 40 MG tablet Take 40 mg by mouth once daily 0 Active spironolactone (ALDACTONE) 25 MG tablet TAKE 1 TABLET BY MOUTH 1 (ONE) TIME EACH DAY 1 Active erythromycin (ROMYCIN) 5 MG/GM ophthalmic ointment Apply thin ribbon to incisions four times a day as well as into the right eye at bedtime. 3.5 g 3 1 Active Active Problems Problem Noted Date Diagnosed Date Closed fracture of right orbit 12/23/2020 Essential hypertension 01/09/2020 Gastroesophageal reflux disease 01/09/2020 Other and unspecified hyperlipidemia 01/09/2020 Immunizations Immunization Administration Dates Next Due INFLUENZA VACCINE, TRIV. [...] drink = 0.6 oz pur e alcohol) Comments Unknown Sex and Gender Information Value Date Recorded Sex Assigned at Not on file Legal Sex Female 4:14 PM CDT Gender Identity Not on file Sexual Orientation [...] 11:39 AM CDT Height 163.8 cm (5' 4.5) 12/19/2020 11 :39 AM CDT Body Mass [...] PNEUMOCOCCAL VACCINE 50+ (2 of 2 - PPSV23, PCV20, or PCV21) 06/17/2018 04/22/2018 DEPRESSION SCREENING 05/03/2024 COVID-19 VACCINE (3 - season) 2025 07/19/2020, 06/28/2020 INFLUENZA VACCINE (#1) 2025 , 01/24/2020, 04/22/2018, Additional history exists HEPATITIS B VACCINE Aged Out No longe [...] this topic Medical Devices Implanted Type Area Electrical Equipment Technician Device Identifier Shelf Expiration Date Model / Serial / Lot Plate Preform Contr Edg Seg Orbt Flr Rt Implanted:Qty: 1 on 12/23/2020 by Yamilet Tyler MD at [facility] Right: Orbital Floor Synthes Maxillofacial .[id number] / / Description:Implant from [employer]él[employer] set. Synthes Midface 4mm Screw Implanted:Qty: 2 on 12/23/2020 by Yamilet Tyler MD at [facility] Right: Orbital Floor Synthes Maxillofacial .[id number] .[id number] / / Insurance ESSENCE MEDICARE ESSENCE MEDICARE SELF PAY NO INSURANCE Member Subscriber Plan / Payer (Ef fective for All Dates) Name:Jil Shoemaker Member ID:Not on file Relation to Subscriber:Not on file Name:JIL SHOEMAKER Subscriber ID:Not on file (Home) Address: [address] [place] [place] [id number] Payer ID:Not on file Group ID:Not on file Type:Self Pay Address: [place], [place] [facility] Care Address: [address] [address] SELF PAY NO INSURANCE Member Subscriber Plan / Payer (Ef fective for All Dates) Name:Jil Shoemaker Member ID:Not on file Relation to Subscriber:Not on file Name:JIL SHOEMAKER Subscriber ID:Not on file Address: [address] [place] [place] [id number] Payer ID:Not on file Group ID:Not on file Type:Self Pay Address: [place], [place] Care Teams Computer Application Developer Relationship Specialty Start Date End Date Librado Liu MD [address] [place] [phone] PCP - General 12/19/20 Navjot Diggs MD Physician Nephrology 12/19/20 Yamilet Tyler MD [address] [facility] [place] [id number] Physician Ophthalmology 12/22/20
--- OUTSIDE RECORDS SUMMARY | 2025-02-23 13:54 | XMS_ITS | Clinical Summary ---
Author Organization [facility] Address [address] [place] [address] Care Team Providers Care Yellow Pages Space Salesperson Name Role Phone Unavailable Primary Care Provider [...] 5 Active cholecalciferol (VITAMIN D3) 1.25 MG (40203 UT) capsule Take 1 capsule (50,000 Units [...] Problem Noted Date Diagnosed Date Wound 03/27/2024 Immunizations Immunization Administration Dates Next Due Influenza [...] drink = 0.6 oz pur e alcohol) [facility] Utilities Answer Date Recorded In the past 12 months has th e electric, gas, oil, or water company threatened to shut off services in your home? No 03/28/2024 Social Connection and Isolation Panel [NHANES] A nswer Date Recorded In a typical week, how many times do you talk on the phone with family, friends, or neighbors? Twice a week 03/28/20 How often do you get togethe r with friends or relatives? Twice a week 03/28/2024 How often do you attend chur ch or sikhism services? 1 to 4 times per year 03/28/2024 Do you belong to any clubs o r organizations such as jewish groups, unions, fraternal or athletic groups, or [...] and heating? Not hard at all 03/28/2024 [place] of Occupat ional Health - Occupational Stress Questionnaire Answer Date Recorded [...] any time in the past 12 m [facility], were you homeless or living in a residential (including now)? No 03/28/2024 Domestic Abuse Assessment [...] - Reported To Not on file 03/27/2024 SDOH Transportation Source Answer Da te Recorded Has [...] Comments Blood Pressure 140/86 05/10/2024 8:00 PM SYSTEMS DESIGNER Pulse 85 05/10/2024 8:00 PM SYSTEMS DESIGNER Temperature 35.9 C (96.6 F) 05/10/2024 8:00 PM SYSTEMS DESIGNER Respiratory Rate 18 05/10/2024 8:00 PM SYSTEMS DESIGNER Oxygen Saturation 97% 05/10/2024 7:50 AM SYSTEMS DESIGNER Inhaled Oxygen Concentration - - Weight 90 kg (198 lb 6.6 oz) 05/10/2024 4:51 PM SYSTEMS DESIGNER Height 162.6 cm (5' 4) 04/04/2024 1:43 PM SYSTEMS DESIGNER Body Mass Index 34.06 04/04/2024 1:43 PM SYSTEMS DESIGNER Plan of Treatment Health Maintenance Due Date Last Done Comments Annual Visit Topic 1942 DTaP/Tdap/Td Vaccines (1 - Tdap) 01/22/1960 Pneumococcal Vaccine: 65+ Years (2 of 3 - PCV20 or PCV21) 04/22/2019 04/22/2018, 01/01/2018 HIB Vaccines Aged Out No longer eligi ble based on patient's age to complete this topic HPV Vaccines Aged Out No longer eligi ble based on patient's age to complete this topic Hepatitis A Vaccines Aged Out No long er eligible based on patient's age to complete this topic Hepatitis B Vaccines Aged Out No long er eligible based on patient's age to complete this topic IPV Vaccines Aged Out No longer eligi ble based on patient's age to complete this topic Meningococcal Vaccine Aged Out No torie sudhir eligible based on patient's age to complete this topic Advance Directives * Full Resuscitation (Latest Code Status on File) Date Activated Date Inactivated Comments 03/27/2024 5:08 PM 05/11/2024 12:11 AM Question Answer Comments I have discussed this order with the patient or his/her surrogate and have received informed consent. Yes RN verify
[2025-02-23 15:10] LABS: Add Urine Microscopic? YES; Appearance Urine Cloudy (Clear); Glucose Urine UA Negative (Negative); Leukocyte Esterase Ur 2+ LEU/UL (Negative); Nitrate Urine Negative (Negative); Non Pathogenic Casts 0-2; Specific Grav Ur 1.022 (1.001-1.035)
== END 2025-02-23 13:51 | disposition home or self-care (01) ==
PROVIDERS: PCP Family Medicine; Visit Provider Family Medicine
DX: N39.0 Urinary tract infection, site not specified (principal)
CPT/HCPCS: 81001; 87077; 87086; 87186

== ENCOUNTER 2025-04-10 15:23 | Outpatient (CLI) | payer OTHER, SELFPAY ==
--- OUTSIDE RECORDS SUMMARY | 2025-04-10 11:30 | XMS_ITS | Encounter Summary ---
Author Organization [facility] Address [address] [place] [address] Care Team Providers Care Biztalk Software Developer Name Role Phone Reuben Carlton MD Primary Care Provider [phone] Reason for Visit * Reason Comments Follow Up Ileostomy closure 2024 hx rectal ca Encounter Details Date Type Department Care Team (Late st Contact Info) Description 04/10/2025 11:30 AM WOOD TREATING INSPECTOR Office Visit [facility] Surgical Spec [place] [address] [facility] [address] [place] [address] Dave Carrillo MD [address] [facility] [address] [place] [address] Social History Tobacco Use Types Packs/Day Years Used Date Smoking Tobacco: Never Smokeless Tobacco: Never Alcohol Use Standard Drinks/Week Comments Never 0 (1 standard drink = 0.6 oz pur e alcohol) Feeling Safe Answer Date Recorded Are you in a relationship wi th someone who hurts you emotionally and/or physically? No 01/02/2025 Food Insecurity Answer Date Recorded Patient needs follow up regardin 08/23/2024 Transportation Needs Answer Date Record ed Patient needs follow up regardin 08/23/2024 Housing Stability Answer Date Recorded Social/Environmental Concerns No concerns Utility Needs Answer Date Recorded Patient needs follow up regardin 08/23/2024 Comments No Sex and Gender Information Value Date Recorded Sex Assigned at Female 02/16/2024 5:28 PM CDT Legal Sex Female 1:34 PM CDT Gender Identity Female 02/16/2024 5:28 PM CDT Sexual Orientation Not on file documented as of this encounter Last Filed Vital Signs Vital Sign Reading Time Taken Comments Blood Pressure 152/84 04/10/2025 11:34 AM WOOD TREATING INSPECTOR Pulse - - Temperature - - Respiratory Rate - - Oxygen Saturation - - Inhaled Oxygen Concentration - - Weight 92.8 kg (204 lb 8 oz) 04/10/2025 11:34 AM WOOD TREATING INSPECTOR Height 162.6 cm (5' 4) 04/10/2025 11:34 AM WOOD TREATING INSPECTOR Body Mass Index 35.1 04/10/2025 11:34 AM WOOD TREATING INSPECTOR documented in this encounter Plan of Treatment Upcoming Encounters Date Type Department Care Team (Late st Contact Info) Description 10/11/2025 11:00 AM CDT Office Visit [facility] Surgical Spec [place] [address] [facility] [address] [place] [address] Dave Carrillo MD [address] [facility] [address] [place] [address] documented as of this encounter Visit Diagnoses Not on filedocumented in this encounter Care Teams Biztalk Software Developer Relationship Specialty Start Date End Date Reuben Carlton MD [address] [place] [phone] PCP - General Family Practice 01/06/24 documented as of this encounter
[2025-04-10 15:55] LABS: Add Urine Microscopic? YES; Appearance Urine Clear (Clear); Glucose Urine UA Negative (Negative); Leukocyte Esterase Ur 2+ LEU/UL (Negative); Nitrate Urine Negative (Negative); Non Pathogenic Casts 0-2; Specific Grav Ur 1.020 (1.001-1.035)
--- OUTSIDE RECORDS SUMMARY | 2025-04-10 17:51 | XMS_ITS | Clinical Summary ---
Author Organization [facility] Address [address] [place] [address] Care Team Providers Care Biochemical Development Engineer Name Role Phone Navjot Diggs MD Unavailable [phone] Librado Liu MD Primary Care Provider [phone] Yamilet Tyler MD Unavailable Source Comments [facility],non-owned Affiliates and Associated Physician Practices is amultiple site organization consisting of ambulatory clinics and hospital sitesin [place], [place], [place] and [place]. This disclosure is being madepursuant to the Care Everywhere program and may not contain all information available regarding this patient. Last updated 18.[facility] Allergies Active Allergy Reactions Criticality Noted [...] PNEUMOCOCCAL VACCINE 50+ (2 of 2 - PCV20 or PCV21) 04/22/2019 04/22/2018 DEPRESSION SCREENING 05/03/2024 COVID-19 VACCINE (3 - season) 2025 07/19/2020, 06/28/2020 INFLUENZA VACCINE (#1) 2025 0, 01/24/2020, 04/22/2018, Additional history exists HEPATITIS B [...] this topic Medical Devices Implanted Type Area Health Data Analyst Device Identifier Shelf Expiration Date Model / Serial / Lot Plate Preform Contr Edg Seg Orbt Flr Rt Implanted:Qty: 1 on 12/23/2020 by Yamilet Tyler MD at [facility] Right: Orbital Floor Synthes Maxillofacial .[id number] / / Description:Implant from [employer] set. Synthes Midface 4mm Screw Implanted:Qty: 2 on 12/23/2020 by Yamilet Tyler MD at [facility] Right: Orbital Floor Synthes Maxillofacial .[id number] .01 / / Insurance ESSENCE MEDICARE ESSENCE MEDICARE SELF PAY NO INSURANCE Member Subscriber Plan / Payer (Ef fective for All Dates) Name:Jil Shoemaker Member ID:Not on file Relation to Subscriber:Not on file Name:JIL SHOEMAKER Subscriber ID:Not on file (Home) Address: [address] [place] [phone] Payer ID:Not on file Group ID:Not on file Type:Self Pay Address: [place], [place] [facility] MEDICARE SELF PAY NO INSURANCE Member Subscriber Plan / Payer (Ef fective for All Dates) Name:Jil Shoemaker Makayla Member ID:Not on file Relation to Subscriber:Not on file Name:SAHARAJIL BREWER Subscriber ID:Not on file Address: [address] [place] [phone] Payer ID:Not on file Group ID:Not on file Type:Self Pay Address: [place], [place] Care Teams Biochemical Development Engineer Relationship Specialty Start Date End Date Librado Liu MD [address] [place] [address] PCP - General 12/19/20 Navjot Diggs MD Physician Nephrology 12/19/20 Yamilet Tyler MD [address] [facility] [place] [address] Physician Ophthalmology 12/22/20
--- OUTSIDE RECORDS SUMMARY | 2025-04-10 17:52 | XMS_ITS | Clinical Summary ---
Author Organization [facility] Address [facility] [place] [address] Care Team Providers Care Presiding Steward Name Role Phone Unavailable Primary Care Provider Unavailabl e Social History Tobacco Use Types Packs/Day Years Used Date Smoking Tobacco: Never Assessed Comments Unknown Sex and Gender Information Value Date Recorded Sex Assigned at Female 05/16/2024 11:18 AM PHONE CIRCUIT OPERATOR Legal Sex Female 11:13 AM PHONE CIRCUIT OPERATOR Gender Identity Not on file Sexual Orientation Not on file Plan of Treatment Health Maintenance Due Date Last Done Comments DTaP, Tdap and Td Vaccines ( 1 - Tdap) 01/22/1960 Pneumococcal Vaccine: 50+ Ye ars (1 of 1 - PCV) 1991 Zoster Vaccines (1 of 2) 1991 Annual Medicare Wellness Visit 2006 Dexa Scan (General) 2006 RSV Immunization or 60+ Years (1 - 1-dose 75+ series) 01/22/2016 COVID-19 Vaccine ( - 2024-2 6 season) 2025 Influenza Adult (#1) 2025 Hepatitis A Vaccines Aged Out No long er eligible based on patient's age to complete this topic Meningococcal B Vaccine Aged Out No l onger eligible based on patient's age to complete this topic Meningococcal Vaccine Aged Out No torie sudhir eligible based on patient's age to complete this topic RSV Immunizations Under 20 Months Aged Out No longer eligible based on patient's age to complete this topic Insurance ESSENCE
--- OUTSIDE RECORDS SUMMARY | 2025-04-10 17:52 | XMS_ITS ---
Author Organization [facility] Address [address] [place] [address] Care Team Providers Care Thermal Cutter Helper Name Role Phone Reuben Carlton MD Primary Care Provider [phone] Active Problems Problem Noted Date Diagnosed Date Ileostomy status 09/21/2024 Benign hypertension 09/21/2024 Hypothyroidism 05/10/2024 Iron deficiency anemia 05/10/2024 Obstructive sleep apnea syndrome 05/10/2024 Bacterial peritonitis 03/22/2024 Wound infection 03/22/2024 Anorexia 03/17/2024 Cancer related pain 03/17/2024 Physical debility 03/17/2024 Nausea 03/17/2024 Palliative care by specialist 03/17/2024 Advance care planning 03/17/2024 Hypertensive urgency 03/14/2024 Severe sepsis with septic shock 03/10/2024 Protein-calorie malnutrition, severe 03/10/2024 HAKEEM (acute kidney injury) 03/10/2024 Rectal cancer 03/10/2024 Hypotension due to hypovolemia 03/09/2024 Essential hypertension 01/09/2020 Gastroesophageal reflux disease 01/09/2020 Current Treatment and Therapy Plans No current [...]
--- OUTSIDE RECORDS SUMMARY | 2025-04-10 17:52 | XMS_ITS | Clinical Summary ---
Author Organization [facility] Address [address] [place] [address] Care Team Providers Care Re Dye Hand Name Role Phone Reuben Carlton MD Primary Care Provider [phone] Allergies Active Allergy Reactions Criticality Noted Date Comments Latex 08/24/2024 Added based on information entered during case entry, please review and add reactions, type, and severity as needed Metronidazole Nausea and Vomiting Low 01/09/2020 Morphine Nausea and Vomiting Low 01/09/2020 Tomato Itching Medium 09/20/2024 Medications calcium as carbonate (CALTRATE) 1,500 mg (600 mg elemental) Tablet Take 1,500 mg by mouth. Active levothyroxine 75 mcg tablet Take 75 mcg by mouth daily. 06/09/2021 Active spironolactone (ALDACTONE) 25 mg tablet TAKE 1 TABLET BY MOUTH 1 (ONE) TIME EACH DAY 07/13/2021 Active CALCIUM CARBONATE-VITAM IN D3 ORAL Take by mouth. Active duloxetine HCl (DULOXETINE ORAL) Take 60 mg [...] loperamide HCl (LOPERAMIDE ORAL) Take by mouth. Active ferrous sulfate 325 mg (65 mg iron) tablet Take 325 mg by mouth daily. Active carvediloL (COREG) 25 mg tablet Take 2 Tablets (50 mg) by mouth every 12 hours. 03/27/2024 Active Eliquis DVT-PE Treat 30D Start 5 mg (74 tabs) Tablets, Dose Pack 1 Tablet 2 times daily. 05/17/2024 Active ascorbic acid, vitamin C, (VITAMIN C) 500 mg tablet 500 mg by G Tube route 2 times daily. 05/08/2024 Active acetaminophen (TYLENOL) 500 mg tablet Take 500 mg by mouth every 6 hours as needed. Active Active Problems Problem Noted Date Diagnosed [...] Essential hypertension 01/09/2020 Gastroesophageal reflux disease 01/09/2020 Encounters Date Type Department Care Team Description 04/10/2025 11:30 AM DIRECTOR OF STRATEGIC PROGRAMS Office Visit [facility] Surgical Spec [place] [address] [facility] [address] [place] [phone] Dave Carrillo MD 04/03/2025 External Device Data STL ABSTRACTION Provider, Abstract 03/27/2025 External Device Data STL ABSTRACTION Provider, Abstract 03/27/2025 External Device Data STL ABSTRACTION Provider, Abstract 03/20/2025 External Device Data STL ABSTRACTION Provider, Abstract 02/20/2025 External Device Data STL ABSTRACTION Provider, Abstract 02/13/2025 External Device Data STL ABSTRACTION Provider, Abstract 02/13/2025 External Device Data STL ABSTRACTION Provider, Abstract 01/16/2025 External Device Data STL ABSTRACTION Provider, Abstract [...] Comments Blood Pressure 152/84 04/10/2025 11:34 AM DIRECTOR OF STRATEGIC PROGRAMS Pulse 62 01/02/2025 4:17 PM CDT Temperature 36.2 C (97.1 F) 01/02/2025 3:57 PM CDT Respiratory Rate 16 01/02/2025 4:17 PM CDT Oxygen Saturation 97% 01/02/2025 4:17 PM CDT Inhaled Oxygen Concentration - - Weight 92.8 kg (204 lb 8 oz) 04/10/2025 11:34 AM DIRECTOR OF STRATEGIC PROGRAMS Height 162.6 cm (5' 4) 04/10/2025 11:34 AM DIRECTOR OF STRATEGIC PROGRAMS Body Mass Index 35.1 04/10/2025 11:34 AM DIRECTOR OF STRATEGIC PROGRAMS Plan of Treatment Upcoming Encounters Date Type Department Care Team (Late st Contact Info) Description 10/11/2025 11:00 AM CDT Office Visit [facility] Surgical Spec [place] [address] [facility] [address] [place] [address] Dave Carrillo MD [address] [facility] [address] [place] [address] Health Maintenance Due Date Last Done Comments DTAP/TDAP/TD VACCINES (1 - Tdap) 01/22/1960 ZOSTER VACCINE (1 of 2) 1991 OSTEOPOROSIS SCREENING 2006 RSV VACCINE (60+ or ) (1 - 1-dose 75+ series) 01/22/2016 PNEUMOCOCCAL VACCINE 50+ YEA RS (2 of 2 - PCV20 or PCV21) 04/22/2019 04/22/2018, 01/01/2018 INFLUENZA VACCINE (#1) 2024 , 01/24/2020, 01/24/2020, Additional history exists Medical Devices Implanted Type Area Milk Receiver Device Identifier Shelf Expiration Date Model / Serial / Lot Barrier Seprafilm 3x5in [id number] - [id number] Implanted:Qty: 1 on 03/08/2024 by Dave Carrillo MD at [facility] Adhesion Barrier N/A: Pelvis [employer] 03/26/2026 [id number] / / [id number] Clip Hemolok Lrg [id number] - Csc - [id number] Implanted:Qty: 1 on 03/08/2024 by Dave Carrillo MD at [facility] Clip N/A: Pelvis TELEFLEX- WECK CLOSURE SYS 12/19/2028 [id number] / / [id number] Left Knee Replacement Insurance [facility] ESSENCE HMO MCR RX [employer] Medicare Part D Advance Directives For more information, please contact: [phone] Documents on File Type Date Recorded Patient Nurse Chemical Dependency Expl anation Advance Directive Living Will 03/08/2024 12:15 PM Advance Directive Living Will * Full Code (Latest Code Status on File) Date Activated Date Inactivated Comments 01/02/2025 2:48 PM 01/02/2025 6:45 PM * Full Code Date Activated Date Inactivated Comments 09/20/2024 6:04 PM 09/24/2024 5:34 PM * Full Code Date Activated Date Inactivated Comments 09/20/2024 10:00 AM 09/20/2024 6:04 PM * Full Code Date Activated Date Inactivated Comments 03/09/2024 7:22 AM 03/27/2024 5:18 PM * Full Code Date Activated Date Inactivated Comments 03/08/2024 12:01 PM 03/09/2024 7:22 AM Care Teams Re Dye Hand Relationship Specialty Start Date End Date Reuben Carlton MD [address] [place] [phone] PCP - General Family Practice 01/06/24
--- OUTSIDE RECORDS SUMMARY | 2025-04-10 17:52 | XMS_ITS | Clinical Summary ---
Author Organization [facility] Address [address] [place] [address] Care Team Providers Care Human Resources Services Specialist Name Role Phone Unavailable Primary Care Provider [...] 5 Active cholecalciferol (VITAMIN D3) 1.25 MG (12771 UT) capsule Take 1 capsule (50,000 Units [...] drink = 0.6 oz pur e alcohol) [facility] Utilities Answer Date Recorded In the past 12 months has e [employer], gas, oil, or water company threatened to shut off services in your home? No 03/28/2024 Social Connection and Isolation Panel Answer Date Recorded In a typical week, how many times do you talk on the phone with family, friends, or neighbors? Twice a week 03/28/20 How often do you get togethe r with friends or relatives? Twice a week 03/28/2024 How often do you attend chur ch or denominational services? 1 to 4 times per year 03/28/2024 Do you belong to any clubs o r organizations such as adventism groups, unions, fraternal or athletic groups, or [...] and heating? Not hard at all 03/28/2024 [facility] of Occupat ional Health - Occupational Stress [...] any time in the past 12 m [facility], were you homeless or living in a care home (including now)? No 03/28/2024 Domestic Abuse Assessment [...] - Reported To Not on file 03/27/2024 [facility] Transportation Source Answer Da te Recorded Has [...] Comments Blood Pressure 140/86 05/10/2024 8:00 PM AGRICULTURAL MECHANIC Pulse 85 05/10/2024 8:00 PM AGRICULTURAL MECHANIC Temperature 35.9 C (96.6 F) 05/10/2024 8:00 PM AGRICULTURAL MECHANIC Respiratory Rate 18 05/10/2024 8:00 PM AGRICULTURAL MECHANIC Oxygen Saturation 97% 05/10/2024 7:50 AM AGRICULTURAL MECHANIC Inhaled Oxygen Concentration - - Weight 90 kg (198 lb 6.6 oz) 05/10/2024 4:51 PM AGRICULTURAL MECHANIC Height 162.6 cm (5' 4) 04/04/2024 1:43 PM AGRICULTURAL MECHANIC Body Mass Index 34.06 04/04/2024 1:43 PM AGRICULTURAL MECHANIC Plan of Treatment Health Maintenance Due Date [...]
--- OUTSIDE RECORDS SUMMARY | 2025-04-10 17:52 | XMS_ITS | Clinical Summary ---
Author Organization [facility] m[facility]alve Address [address] [place] [id number] Phone Care Team Providers Care Guest Service Agent Name Role Phone Edy Cadena Primary Care Provider [phone] Allergies Active Allergy Reactions Criticality Noted Date [...] exists Insurance [employer] Care Teams Guest Service Agent Relationship Specialty Start Date End Date Edy Cadena DO [address] [place] [address] PCP - General Internal Medicine 12/15/21
== END 2025-04-10 15:24 | disposition home or self-care (01) ==
PROVIDERS: PCP Family Medicine; Visit Provider Family Medicine
DX: R39.9 Unspecified symptoms and signs involving the genitourinary system (principal)
CPT/HCPCS: 81001; 87086; 87186

== ENCOUNTER 2025-04-12 09:47 | Outpatient (CLI) | payer OTHER, SELFPAY ==
--- NOTE | ~2025-04-12 | US_ITS ---
EXAMINATION: US carotid duplex BI DATE: 04/12/2025 10:35 INDICATION: Subjective visual disturbance TECHNIQUE: Grayscale, color Doppler, and pulsed Doppler images of the cervical carotid arteries were obtained. The degree of vessel stenosis is placed in one of the following categories: normal, <50%, 50-69%, >=70% but less than near- occlusion, near-occlusion, or total occlusion. Note that percent stenosis relative to normal distal artery lumen diameter is indirectly measured from velocity measurements as described by Joey, et al. Radiology 2003; 229:340-346. COMPARISON: 05/29/2015 FINDINGS: RIGHT: The right common carotid artery (CCA) peak systolic velocity (PSV) is 79 cm/s. The right internal carotid artery (ICA) PSV is 82 cm/s. The right ICA end- diastolic velocity (EDV) is 21 cm/s. The right ICA/CCA PSV ratio is 1.0. Grayscale and color Doppler images yield an estimate of <50% diameter reduction from minimal plaque in the ICA. The external carotid artery (ECA) PSV is 98 cm/s. There is antegrade flow in the right vertebral artery. LEFT: The left CCA PSV is 63 cm/s. The left ICA PSV is 75 cm/s. The left ICA EDV is 15 cm/s. The left ICA/CCA PSV ratio is 1.2. Grayscale and color Doppler images yield an estimate of <50% diameter reduction from minimal plaque in the ICA. The ECA PSV is 68 cm/s. There is antegrade flow in the left vertebral artery. IMPRESSION: 1. <50% stenosis from minimal plaque in the right internal carotid artery. 2. <50% stenosis from minimal plaque in the left internal carotid artery. Reviewed, dictated and finalized at location A. [employer]
--- NOTE | ~2025-04-12 | CT_ITS ---
EXAMINATION: CT brain wo/w con, 04/12/2025 10:35 [employer] HISTORY: G31.84 - Mild cognitive impairment of uncertain or unknow... COMPARISON: No comparisons available. Technique: Axial images obtained of the brain without and with intravenous contrast. One or more of the following dose reduction techniques were used: automated exposure control, adjustment of the mA and/or kV according to patient size, use of iterative reconstruction technique. Findings: There are moderate chronic periventricular ischemic changes. No acute infarct or hemorrhage. No midline shift or mass effect. No extra-axial fluid collections.There is no abnormal enhancement appreciated within the brain parenchyma. Mastoid air cells unremarkable. Sinuses and orbits unremarkable. No acute fracture. No significant facial or scalp soft tissue swelling evident. No radiopaque foreign body is seen. Impression: Age-appropriate changes detailed above. Reviewed, dictated and finalized at location P. [employer]INEERING MANAGER Impression: Age-appropriate changes detailed above.
[2025-04-12 13:48] LABS: Estimated Glomerular Filt Rate 47
== END 2025-04-12 09:48 | disposition home or self-care (01) ==
PROVIDERS: PCP Family Medicine; Visit Provider Psychiatry & Neurology Neurology
DX: I65.23 Occlusion and stenosis of bilateral carotid arteries (principal); I67.82 Cerebral ischemia; I10 Essential (primary) hypertension; R55 Syncope and collapse; R29.6 Repeated falls; E66.01 Morbid (severe) obesity due to excess calories; Z68.35 Body mass index [BMI] 35.0-35.9, adult
CPT/HCPCS: 70470; 93880; Q9967